=== PATIENT | male | born 1950 | race Caucasian/White ===

== ENCOUNTER 2023-05-15 10:04 | Outpatient (OUT) | payer MEDICARE, OTHER, SELFPAY ==
[2023-05-15 10:23] LABS: Basophils Absolute Auto 0.1 10^3/uL (0.0-0.1); Basophils Percent Auto 1.7 % (0.2-2.0); Eosinophils Absolute Auto 0.1 10^3/uL (0.0-0.7); Eosinophils Percent Auto 2.5 % (0.9-7.0); Hematocrit 46.3 % (42.0-54.0); Hemoglobin 15.5 g/dL (14.0-18.0); Immature Granulocytes Abs Auto 0.02 10^3/uL (0.00-0.03); Immature Granulocytes Pct Auto 0.4 % (0.0-0.5); Lymphocytes Absolute Auto 1.2 10^3/uL (1.2-3.8); Lymphocytes Percent Auto 22.7 % (20.5-60.0); Mean Corpuscular HGB Conc 33.5 g/dL (29.9-35.2); Mean Corpuscular Hemoglobin 31.7 pg (25.9-34.0); Mean Corpuscular Volume 94.7 fL (80.0-94.0); Mean Platelet Volume 9.8 fL (9.5-13.5); Monocytes Absolute Auto 0.6 10^3/uL (0.3-0.8); Monocytes Percent Auto 11.5 % (1.7-12.0); Neutrophils Absolute Auto 3.2 10^3/uL (1.4-6.5); Neutrophils Percent Auto 61.2 % (43.0-75.0); Platelet Count 220 10^3/uL (150-450); Red Blood Count 4.89 10^6/uL (4.70-6.10); Red Cell Distribution Width 12.5 % (11.0-15.0); White Blood Count 5.2 10^3/uL (4.0-11.0)
[2023-05-15 10:38] LABS: Estimated Average Glucose 117 mg/dL; Glycohemoglobin A1C 5.7 % (4.5-6.2)
[2023-05-15 10:58] LABS: Anion Gap 14.2; BUN Creatinine Ratio 26.5; Calcium 9.8 mg/dL (8.5-10.1); Chloride 98 mmol/L (98-107); Chol HDL Ratio 2.3; Cholesterol 213 mg/dL (<=200); Estimated GFR (African America >60 (>=60); Estimated GFR (Non-African Ame >60 (>=60); Glucose 132 mg/dL (74-106); HDL Cholesterol 94 mg/dL (40-60); Potassium 4.2 mmol/L (3.5-5.1); Sodium 137 mmol/L (136-145); Triglycerides 111 mg/dL (<=150); VLDL CHOLESTEROL 22.2 mg/dL
== END 2023-05-15 10:05 | disposition home or self-care (01) ==
LOC: LAB 05-23 14:53
PROVIDERS: PCP Internal Medicine; Visit Provider Internal Medicine
DX: E78.5 Hyperlipidemia, unspecified (principal); I10 Essential (primary) hypertension; R53.83 Other fatigue; R73.02 Impaired glucose tolerance (oral)
CPT/HCPCS: 36415; 80048; 80061; 83036; 85025

== ENCOUNTER 2023-08-25 08:01 | Outpatient (OUT) | payer MEDICARE, OTHER, SELFPAY ==
[2023-08-25 09:33] LABS: Prostate Specific Antigen Dx 5.83 ng/mL (<=4.00)
== END 2023-08-25 08:02 | disposition home or self-care (01) ==
LOC: LAB 08:02
PROVIDERS: PCP Internal Medicine; Visit Provider Urology
DX: R97.20 Elevated prostate specific antigen [PSA] (principal); N40.1 Benign prostatic hyperplasia with lower urinary tract symptoms; N42.32 Atypical small acinar proliferation of prostate; N52.9 Male erectile dysfunction, unspecified; R35.1 Nocturia
CPT/HCPCS: 36415; 84153

== ENCOUNTER 2023-10-31 09:27 | Outpatient (OUT) | payer MEDICARE, OTHER, SELFPAY ==
--- NOTE | 2023-10-31 09:37 | US_ITS ---
[address] [address] Patient Name: MASTER BRUNNER MRN: [id number] date: 1950 Sex: M Assigned Patient Location: Current Patient Location: Accession/Order Number: [id number] Exam Date: 10/31/2023 09:40 Report Date: 11/01/2023 01:05 At the request of: ORLIN LAM Procedure: US carotid duplex BI EXAMINATION: US carotid duplex BI HISTORY: Stenosis Of The Left Carotid Artery I65.22 COMPARISON: Ultrasound carotid artery bilateral 09/15/2022 TECHNIQUE: Duplex Doppler ultrasound analysis of carotid and vertebral arteries. . Bilateral carotid arterial duplex examination was performed using B-mode, color flow and spectral analysis. Carotid stenosis is reported according to validated velocity parameters, similar to NASCET criteria. FINDINGS: RIGHT CAROTID ARTERY: Multiple areas of atherosclerotic plaque involving bulb and proximal ICA. 59% area reduction of carotid bulb. RIGHT VERTEBRAL: Antegrade flow. Subclavian: PSV: 143.8 cm/s EDV: 11.4 cm/s CCA: Prox: PSV: 75.8 cm/s EDV: 12.8 cm/s Mid: PSV: 91.9 cm/s EDV: 12.8 cm/s Distal: PSV: 74.2 cm/s EDV: 11.1 cm/s BULB: PSV: 77.4 cm/s EDV: 11.1 cm/s ICA: Prox: PSV: 90.3 cm/s EDV: 12.8 cm/s Mid: PSV: 106.5 cm/s EDV: 17.6 cm/s Distal: PSV: 98.4 cm/s EDV: 12.8 cm/s ECA: PSV: 121.0 cm/s EDV: 9.5 cm/s VERTEBRAL: PSV: 90.3 cm/s EDV: 0.0 cm/s ICA/CCA ratio: PSV: 1.2 EDV: 1.4 LEFT CAROTID ARTERY: Multiple areas of atherosclerotic plaque involving mid and distal common carotid artery, bulb, and the proximal and mid internal carotid artery. 68% area reduction of the carotid bulb. LEFT VERTEBRAL: Antegrade flow. Subclavian: PSV: 125.3 cm/s EDV: 5.5 cm/s CCA: Prox: PSV: 78.5 cm/s EDV: 13.9 cm/s Mid: PSV: 83.3 cm/s EDV: 13.9 cm/s Distal: PSV: 68.1 cm/s EDV: 12.4 cm/s BULB: PSV: 66.8 cm/s EDV: 12.4 cm/s ICA: Prox: PSV: 116.0 cm/s EDV: 9.8 cm/s Mid: PSV: 114.1 cm/s EDV: 9.0 cm/s Distal: PSV: 128.6 cm/s EDV: 12.3 cm/s ECA: PSV: 166.7 cm/s EDV: 17.0 cm/s VERTEBRAL: PSV: 101.1 cm/s EDV: 9.0 cm/s ICA/CCA ratio: PSV: 1.5 EDV: 0.9 US/US carotid duplex BI IMPRESSION: 1. Right carotid artery 0-49% flow stenosis; moderate atherosclerotic disease. 2. Left carotid artery 0-49% flow stenosis; moderate marked atherosclerotic disease. Spectral Doppler US Thresholds Stenosis (%) PSV (cm/sec) VICA/VCCA 0-49 <150 <2.5 50-69 150-225 2.5-4.0 >70 >225 >4.0 Electronically authenticated by: LON SINGH Date: 11/01/2023 01:05
== END 2023-10-31 09:28 | disposition home or self-care (01) ==
LOC: US 09:27
PROVIDERS: PCP Internal Medicine; Visit Provider Internal Medicine
DX: I65.22 Occlusion and stenosis of left carotid artery (principal)
CPT/HCPCS: 93880

== ENCOUNTER 2023-11-15 09:18 | Outpatient (OUT) | payer MEDICARE, OTHER, SELFPAY ==
--- OUTSIDE RECORDS SUMMARY | 2023-11-15 09:38 | XMS_ITS | CCD ---
Author Name Unknown Address [address] [place] [address] Organization [facility] Care Team Providers Care Commodity Director Name Role Phone ERIK HOLM Primary Care Physician Erik Holm DO Primary Care Provider MD Mann Ribeiro Attending Provider DO Erik Holm Primary Care Provider MIHAI, DR ORDAZ Admitting Unavailable BALL, DR ORDAZ Attending Unavailable BALL, DR ORDAZ Consulting Unavailable MIHAI, DR ORDAZ Primary Care Unavailable LISETTE, DR KARLIE Lord Consulting Unavailable MIHAI, DR ORDAZ Primary Care Unavailable MIHAI, DR ORDAZ Admitting Unavailable MIHAI, DR ORDAZ Attending Unavailable BALL, DR ORDAZ Consulting Unavailable WEST, DR KARLIE Lord Consulting Unavailable SUSANNA, DR PACHECO Attending Unavailable BALL, DR ORDAZ Primary Care Unavailable SUSANNA, DR PACHECO Consulting Unavailable SUSANNA, DR PACHECO Admitting Unavailable RIBEIRO, DR PACHECO Attending Unavailable BALL, DR ORDAZ Primary Care Unavailable RIBEIRO, DR PACHECO Consulting Unavailable RIBEIRO, DR PACHECO Admitting Unavailable TREVINO, MARANDA Consulting Unavailable RIBEIRO, DR PACHECO Admitting Unavailable SUSANNA, DR PACHECO Attending Unavailable MIHAI, DR ORDAZ Primary Care Unavailable RIBEIRO, DR PACHECO Consulting Unavailable CINTIA, RACHEL Consulting Unavailable GEMBUS, KAUSHAL Consulting Unavailable MIHAI, DR ORDAZ Admitting Unavailable BALL, DR ORDAZ Attending Unavailable BALL, DR ORDAZ Consulting Unavailable BALL, DR ORDAZ Primary Care Unavailable Mihai, Erik Unavailable Mann RIBEIRO Attending Unavailable Mann RIBEIRO Attending Unavailable Allergies Allergy Classification Reported Allergen(s) Allergy Type Date of Onset Reaction(s) Facility (1 source) No Known Medication Allergies; Translations: [No Known Medication Allergies] Propensity to adverse reactions (disorder) [facility] Repository Medications Current Medications Medication Drug Class(es) Dates Sig (Normalized) Sig (Original) acetaminophen 325 mg / HYDROcodone bitartrate 7.5 mg oral tablet (1 source) Opioid Agonist Start: 08-05-2022 take 1 tablet by mouth once, then take 1 tablet by mouth every hour [place] 325 mg-7.5 mg oral tablet 1 tab(s), Oral, Once, 1 tab(s), Refill(s) 0, Take 1 hour prior to procedure. Don't drive or operate machinery while taking., [facility]/pharmacy #[id number], 162, cm, 06/06/22 9:08:00 EDT, Height/Length Dosing, 59.5, kg, 06/06/22 9:08:00 EDT, Weight Dosing Start Date: 08/05/22 Status: Ordered aspirin 81 mg oral tablet (11 sources) Platelet Aggregation Inhibitor, Nonsteroidal Anti-inflammatory Drug Start: 08-26-2019 take 1 mg by mouth once daily aspirin 81 mg oral tablet mg tab(s), Oral, Daily, Refills(s) 0 Start Date: 08/26/19 Status: Ordered take 1 tablet by bolivar th every twenty-four hours Aspirin 81 MG 1 tablet Orally Once a day Active Comment on above: Take 81 mg by mouth once daily. atorvastatin 40 mg oral tablet (11 sources) HMG-CoA Reductase Inhibitor Start: 05-13-2021 atorvastatin 40 mg T ab Refills(s) 0 Start Date: 06/04/21 Status: Ordered Comment on above: Take 40 mg by mouth daily at bedtime. benoxinate hydrochloride 4 mg/ml / fluorescein sodium 2.5 mg/ml ophthalmic solution (1 source) Diagnostic Dye Start: 06-16-2022 End: 06-17-2022 fluorescein-benoxinate 0.25-0.4 % 1 Drop (FLURESS) hydroCHLOROthiazide 25 mg oral tablet (11 sources) Thiazide Diuretic Start: 08-26-2019 take 1 mg by mouth once daily hydrochlorothiazide 25 mg Tab mg tab(s), Oral, Daily, Refills(s) 0 Start Date: 08/26/19 Status: Ordered Comment on above: Take 25 mg by mouth once daily. phenylephrine hydrochloride 25 mg/ml ophthalmic solution (1 source) alpha-1 Adrenergic Agonist Start: 06-16-2022 End: 06-17-2022 PHENYLephrine 2.5 % 1 Drop (AK-DILATE, KALIE-SYNEPHRINE) pravastatin sodium 80 mg oral tablet (5 sources) HMG-CoA Reductase Inhibitor Start: 08-26-2019 take 1 mg by mouth once daily pravastatin 80 mg Tab mg tab(s), Oral, Daily, Refills(s) 0 Start Date: 08/26/19 Status: Ordered Comment on above: Take by mouth. tropicamide 10 mg/ml ophthalmic solution (1 source) Anticholinergic Start: 06-16-2022 End: 06-17-2022 tropicamide 1 % 1 Drop (MYDRIACYL) Completed/Discontinued Medications Medication Drug Class(es) Dates Sig (Normalized) Sig (Original) amLODIPine 5 mg / benazepril hydrochloride 20 mg oral capsule (11 sources) Dihydropyridine Calcium Channel Ramon, Angiotensin Converting Enzyme Inhibitor Start: 08-26-2019 amLODIPine-benaz epril (LOTREL) 5-20 mg per capsule Take by mouth. 0 08/26/2019 Active Start: 08-26-2019 take 1 capsule by [facility] once daily amLODIPine-benazepril 5 mg-20 mg Cap cap(s), Oral, Daily, Refill(s) 0 Start Date: 08/26/19 Status: Ordered Comment on above: Take by mouth. ketorolac tromethamine 5 mg/ml ophthalmic solution (2 sources) Nonsteroidal Anti-inflammatory Drug, Cyclooxygenase Inhibitor Start: 07-13-2021 End: 06-16-2022 keTORolac (ACULAR) 0.5 % ophthalmic solution USE DIRECTED BY PHYSICIAN, IN OPERATIVE EYE, BEGINNING ONE DAY AFTER SURGERY 5 mL 0 07/27/2021 06/16/2022 Discontinued (Course of therapy completed) Comment on above: USE DIRECTED BY Francia SUTTON, IN OPERATIVE EYE, BEGINNING ONE DAY AFTER SURGERY prednisoLONE acetate 10 mg/ml ophthalmic suspension (2 sources) Corticosteroid Start: 07-13-2021 End: 06-16-2022 prednisoLONE acetate (PRED FORTE, ECONOPRED PLUS) 1 % ophthalmic suspension USE DIRECTED BY PHYSICIAN, IN OPERATIVE EYE, BEGINNING ONE DAY AFTER SURGERY 5 mL 0 07/27/2021 06/16/2022 Discontinued (Course of therapy completed) Comment on above: USE DIRECTED BY Francia SUTTON, IN OPERATIVE EYE, BEGINNING ONE DAY AFTER SURGERY tadalafil 20 mg oral tablet (11 sources) Phosphodiesterase 5 Inhibitor Start: 09-11-2023 take 1 tablet by mouth every twenty-four hours tadalafil 20 mg Tab 20 mg = 1 tab(s), Oral, As Directed, Take 1 tab 1 hr prior to sexual activity as needed. Don't exceed 1 tab in a 24 hr period., # 30 tab(s), Refills(s) 11, Pharmacy: [facility] [id number], 162, cm, 09/11/23 8:42:00 EDT, Height/Length Dosing, 61.2, kg, 09/11/23 8:42:00 EDT, Weight Dosing Start Date: 09/11/23 Status: Ordered Start: 08-12-2022 take 1 tablet by bolivar th every twenty-four hours tadalafil 20 mg Tab 20 mg = 1 tab(s), Oral, As Directed, Take 1 tab 1 hr prior to sexual activity as needed. Don't exceed 1 tab in a 24 hr period., # 30 tab(s), Refills(s) 3, Pharmacy: [facility] [id number], 162, cm, 06/06/22 9:08:00 EDT, Height/Length Dosing, 59.5,... Start Date: 08/12/22 Status: Ordered Start: 03-09-2020 tadalafil 20 m g Tab 20 mg = 1 tab(s), Oral, As Directed, Take 1 tab 30min. prior to sexual activity, # 30 tab(s), Refills(s) 3, Pharmacy: [facility] [id number], 162, cm, 06/04/21 8:16:00 EDT, Height/Length Dosing, 59.5, kg, 06/04/21 8:16:00 EDT, Weight Dosing Start Date: 04/08/22 Status: Ordered take 1 tablet by bolivar th every twenty-four hours Cialis 20 MG 1 tablet as needed Orally Once a day Active Comment on above: Take 20 mg by mouth. Problems Problem Classification Problem Date Documented Date Episodic/Chronic Asthma (1 source) Unspecified asthma, uncomplicated; Translations: [UNSPECIFIED ASTHMA UNCOMPLICATED] Onset: 08-31-2022 Chronic Cataract (2 sources) After-cataract of bilateral eyes; Translations: [Other secondary cataract, bilateral] Chronic Diabetes mellitus without complication (18 sources) Impaired fasting glycemia; Translations: [Impaired fasting glucose] Onset: 05-16-2022 08-26-2019 Episodic Disorders of lipid metabolism (20 sources) Hyperlipidemia; Translations: [Hyperlipidemia, unspecified] Onset: 07-08-2021 08-26-2019 Chronic Essential hypertension (19 sources) Hypertensive disorder; Translations: [Essential (primary) hypertension] Onset: 07-08-2021 08-26-2019 Chronic Genitourinary symptoms and ill-defined conditions (15 sources) Nocturia; Translations: [Nocturia] Onset: 06-06-2022 Episodic Glaucoma (12 sources) Glaucoma; Translations: [Preglaucoma, unspecified, bilateral] Onset: 08-31-2022 08-26-2019 Chronic Hyperplasia of prostate (20 sources) Benign prostatic hypertrophy with outflow obstruction; Translations: [Benign prostatic hyperplasia with lower urinary tract symptoms] Onset: 05-13-2022 Chronic Neoplasms of unspecified nature or uncertain behavior (4 sources) Neoplasm of uncertain behavior of prostate 10-11-2019 Episodic Occlusion or stenosis of precerebral arteries (18 sources) Occlusion and stenosis of left carotid artery; Translations: [Left carotid artery stenosis] Onset: 09-15-2022 Chronic Other aftercare (1 source) medical terminologist (current) use of anticoagulants; Translations: [ASSISTED CURRNT USE ANTICOAGULANTS] Onset: 08-31-2022 Episodic Other aftercare (2 sources) Other medical terminologist (current) drug therapy; Translations: [OTH ASSISTANT PROFESSOR OF BIOCHEMISTRY CURRENT DRUG THERAPY] Onset: 05-16-2022 Episodic Other circulatory disease (4 sources) Cardiovascular symptoms; Translations: [Other specified symptoms and signs involving the circulatory and respiratory systems] Episodic Other circulatory disease (2 sources) Other specified symptoms and signs involving the circulatory and respiratory systems; Translations: [Bilateral carotid bruits] Episodic Other diseases of kidney and ureters (2 sources) Urinary tract obstruction; Translations: [Other obstructive and reflux uropathy] Onset: 06-06-2022 Episodic Other male genital disorders (4 sources) Male erectile dysfunction, unspecified; Translations: [Erectile dysfunction] Onset: 06-06-2022 Chronic Other male genital disorders (4 sources) Impotence 10-11-2019 Chronic Other male genital disorders (3 sources) Dysplasia of prostate; Translations: [Atypical small acinar proliferation of prostate] Onset: 06-06-2022 Episodic Other male genital disorders (1 source) Disorder of prostate, unspecified; Translations: [DISORDER OF PROSTATE UNSPECIFIED] Onset: 08-31-2022 Episodic Other male genital disorders (1 source) Atypical small acinar proliferation of prostate; Translations: [ATYPICAL SMALL ACINAR PROLIF PROS] Onset: 08-31-2022 Episodic Other male genital disorders (1 source) Other specified disorders of prostate; Translations: [OTHER SPECIFIED DISORDERS PROSTATE] Onset: 08-24-2022 Episodic Other screening for suspected conditions (not mental disorders or infectious disease) (19 sources) Raised prostate specific antigen; Translations: [Elevated prostate specific antigen [PSA]] Onset: 06-06-2022 Episodic Residual codes; unclassified (1 source) History of refractive surgery; Translations: [Other specified postprocedural states] Episodic Screening and history of mental health and substance abuse codes (1 source) Personal history of nicotine dependence; Translations: [PERSONAL HISTORY OF NICOTINE DEPEND] Onset: 08-31-2022 Episodic Unclassified (4 sources) Drug therapy finding 10-11-2019 Unclassified (1 source) CONTACT W/AND (SUSP) EXPOS COVID-19; Translations: [CONTACT W/AND (SUSP) EXPOS COVID-19] Onset: 08-24-2022 Results Test Name Value Interpretation Reference Range Facil ity Ambulatory Visit Summaryon 1 Ambulatory Visit Summary BALJINDER BRUNNER Martha :1950 Visit Date:09/11/2023 Ambulatory Visit Instructions Your Diagnosis Elevated PSA BPH with urinary obstruction Atypical small acinar proliferation of prostate Impotence Nocturia Tests Performed Urnls Dip Stick Auto w/o Microscopy POC [id number] Your Care Team Attending Physician - Mann RIBEIRO MD Primary Care Physician - ERIK HOLM DO This Is Your Medications List tadalafil (tadalafil 20 mg Tab) Contact prescribing physician if questions or concerns amlodipine-benazepril (amLODIPine-benazepril 5 mg-20 mg Cap) aspirin (aspirin 81 mg oral tablet) atorvastatin (atorvastatin 40 mg Tab) hydrochlorothiazide (hydrochlorothiazide 25 mg Tab) pravastatin (pravastatin 80 mg Tab) Procedures Performed MRI-US fusion guided transperineal biopsy of prostate (08/25/2022), Transrectal biopsy of prostate using ultrasound (US) guidance (09/24/2019), Colonoscopy. Discharge Vitals Heart Rate (Peripheral) 66 Respiratory Rate 16 Blood Pressure 136/84 Height 162 cm Height 64 in Weight 61.2 kg Weight 134.64 lb BMI 23.32 What to do next Scheduled Follow-Up Appointments Monday 8:45 AM EDT With: Mann RIBEIRO MD Where: [facility] Patient Educationon 09-11-20 23 Patient Education Urology Benign Prostatic Hyperplasia Benign prostatic hyperplasia (BPH) is an enlarged prostate gland that is caused by the normal aging process. The prostate may get bigger as a man gets older. The condition is not caused by cancer. The prostate is a walnut-sized gland that is involved in the production of semen. It is located in front of the rectum and below the bladder. The bladder stores urine. The urethra carries stored urine out of the body. An enlarged prostate can press on the urethra. This can make it harder to pass urine. The buildup of urine in the bladder can cause infection. Back pressure and infection may progress to bladder damage and kidney (renal) failure. What are the causes? This condition is part of the normal aging process. However, not all men develop problems from this condition. If the prostate enlarges away from the urethra, urine flow will not be blocked. If it enlarges toward the urethra and compresses it, there will be problems passing urine. What increases the risk? This condition is more likely to develop in men older than 50 years. What are the signs or symptoms? Symptoms of this condition include: ? Getting up often during the night to urinate. ? Needing to urinate frequently during the day. ? Difficulty starting urine flow. ? Decrease in size and strength of your urine stream. ? Leaking (dribbling) after urinating. ? Inability to pass urine. This needs immediate treatment. ? Inability to completely empty your bladder. ? Pain when you pass urine. This is more common if there is also an infection. ? Urinary tract infection (UTI). How is this diagnosed? This condition is diagnosed based on your medical history, a physical exam, and your symptoms. Tests will also be done, such as: ? A post-void bladder scan. This measures any amount of urine that may remain in your bladder after you finish urinating. ? A digital rectal exam. In a rectal exam, your health care provider checks your prostate by putting a lubricated, gloved finger into your rectum to feel the back of your prostate gland. This exam detects the size of your gland and any abnormal lumps or growths. ? An exam of your urine (urinalysis). ? A prostate specific antigen (PSA) screening. This is a blood test used to screen for prostate cancer. ? An ultrasound. This test uses sound waves to electronically produce a picture of your prostate gland. Your health care provider may refer you to a specialist in kidney and prostate diseases (urologist). How is this treated? Once symptoms begin, your health care provider will monitor your condition (active surveillance or watchful waiting). Treatment for this condition will depend on the severity of your condition. Treatment may include: ? Observation and yearly exams. This may be the only treatment needed if your condition and symptoms are mild. ? Medicines to relieve your symptoms, including: ? Medicines to shrink the prostate. ? Medicines to relax the muscle of the prostate. ? Surgery in severe cases. Surgery may include: ? Prostatectomy. In this procedure, the prostate tissue is removed completely through an open incision or with a laparoscope or robotics. ? Transurethral resection of the prostate (TURP). In this procedure, a tool is inserted through the opening at the tip of the penis (urethra). It is used to cut away tissue of the inner core of the prostate. The pieces are removed through the same opening of the penis. This removes the blockage. ? Transurethral incision (TUIP). In this procedure, small cuts are made in the prostate. This lessens the prostate's pressure on the urethra. ? Transurethral microwave thermotherapy (TUMT). This procedure uses microwaves to create heat. The heat destroys and removes a small amount of prostate tissue. ? Transurethral needle ablation (TUNA). This procedure uses radio frequencies to destroy and remove a small amount of prostate tissue. ? Interstitial laser coagulation (ILC). This procedure uses a laser to destroy and remove a small amount of prostate tissue. ? Transurethral electrovaporization (TUVP). This procedure uses electrodes to destroy and remove a small amount of prostate tissue. ? Prostatic urethral lift. This procedure inserts an implant to push the lobes of the prostate away from the urethra. Follow these instructions at home: ? Take oznd-ymv-whldvws and prescription medicines only as told by your health care provider. ? Monitor your symptoms for any changes. Contact your health care provider with any changes. ? Avoid drinking large amounts of liquid before going to bed or out in public. ? Avoid or reduce how much caffeine or alcohol you drink. ? Give yourself time when you urinate. ? Keep all follow-up visits. This is important. Contact a health care provider if: ? You have unexplained back pain. ? Your symptoms do not get better with treatment. ? You develop side effects from the medicine (more content not included)... [facility] Urology Office/Clinic Noteon 09-11-2023 Urology Office/Clinic Note Chief Complaint elevated PSA HPI Staff 72 yo male here for 1 yr f/u with PSA. Previous Dx: elevated PSA, BPH with obstruction, atypical small acinar proliferation of prostate, impotence, nocturia. S/p MRI fusion bx 08/25/22 and TRUS/bx 09/24/19. Previous PSA 05/13/22 was 4.99. Current PSA 08/25/23 is 5.83. Taking Tadalafil 20mg PRN. Dysuria: no Incomplete bladder emptying: no Hematuria: no Frequency: no Urgency: no Nocturia: 1-2x Stream: no straining or intermittency Leaking: no Post void dripping: no Wearing pads/ Depends: no Urge incontinence: no Stress incontinence: no Incontinence without Sensory Awareness: no Abdominal pain: no Flank pain: no Sexual complaints: no History of Present Illness Tests reviewed: reviewed UA and PSA. I have reviewed the previous health record information and history for this patient from . I have reviewed and verified the staff HPI to be accurate for this encounter. There have been no associated fever, chills, flank pain, or blood in the urine. Denies any urinary infections since last encounter. Review of Systems PHQ Score Initial Depression Screen Score: 0 ROS - Provider Constitutional: denies weight loss, denies hot flashes. Eyes: denies eye problems. Gastrointestinal: denies nausea, denies vomiting. Cardiovascular: denies chest pain or angina. Integumentary: no dryness Musculoskeletal: denies musculoskeletal symptoms. ENMT: denies otolaryngeal symptoms. Respiratory: no shortness of breath. Heme/Lymph: denies easy bleeding tendency, denies easy bruising tendency. Psychiatric: no confusion, no anxiety. Genitourinary: See HPI. Physical Exam Vitals & Measurements HR: 66(Peripheral) RR: 16 BP: 136/84 HT: 64 in HT: 162 cm WT: 61.2 kg WT: 134.64 lb BMI: 23.32 General Appearance: alert, no distress, well nourished, well developed male. Genitourinary: normal scrotum, normal testes, normal urethra, normal epididymis, normal vas deferens/spermatic cord. Flank Pain: none. Bladder: nonpalpable. Prostate: normal prostate, estimated weight 30 gms, no hard nodule observed. Assessment/Plan 1. Elevated PSA (R97.20: Elevated prostate specific antigen [PSA]) Pt has undergone 2 TRUS/Bx's in the past. Bx done 08/2019 showed one core of AMELIA, repeat Bx done 04/2020 all cores were negative. Recent TRUS done 08/25/2022 was negative. PSA 05/12/21 - 6.17 05/13/22 - 4.99 08/25/23 - 5.83 Discussed PSA levels with pt, increased slightly from previous, not the highest it's been. Will continue to monitor. Follow up in 1 yr w/PSA. All questions/concerns were discussed. Pt to call the office if he encounters any issues prior. Pt acknowledges understanding. -Will order PSA. 2. BPH with urinary obstruction (N40.1: Benign prostatic hyperplasia with lower urinary tract symptoms) Good stream. UA done today was negative. KAMRYN: 30 gms, no nodules Patient is not currently taking any prostate medications other than cialis. 3. 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 Recent TRUS done 08/25/2022 shows prostate lesion. Will continue to monitor. 4. Impotence (N52.9: Male erectile dysfunction, unspecified) Pt to continue Tadalafil 20mg PRN therapy. Patient states that he takes this about QD, 6 days/wk. Advised pt to try taking this med QOD do to it having effect on BPH and ED. Pt states that he can do this. -Start Tadalafil 20mg QOD. Refills sent to Pharm on file. 5. Nocturia (R35.1: Nocturia) Mild, 0-2 time per night depending on fluid intake. Follow-up With When Contact Information Mann RIBEIRO MD, URXi In 1 year [facility] [address], [place] [id number]- Additional Instructions: w/PSA Patient Education Benign Prostatic Hyperplasia I, Sandra Ragsdale , personally scribed for Dr. Ribeiro on 09/11/2023 09:18:36. . Documentation recorded by the scribe, Sandra Ragsdale, accurately reflects the services(s) I performed and decisions made by me. 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 Medications amLODIPine-benazepril 5 mg-20 mg Cap, Oral, Daily aspirin 81 mg oral tablet, Oral, Daily atorvastatin 40 mg Tab hydrochlorothiazide 25 mg Tab, Oral, Daily pravastatin 80 mg Tab, Oral, Daily tadalafil 20 mg Tab, 20 mg= 1 tab(s), Oral, As Directed, 11 refills Allergies No Known Medication Allergies Social History Tobacco Former smoker (more content not included)... [facility] Comment on above: Result Comment: Elec tronically Signed By: Mann RIBEIRO MD\.br\Date and Time Signed: 09/11/23 09:20 EDT\.br\Electronically Co-Signed By: Sandra Ragsdale\.br\Date and Time Co-Signed: 09/11/23 09:18 EDT Lab Report[facility] 08-25-2023 Lab Reports [id number] D:127 [facility] US CAROTID ART BILon 022 US CAROTID ART JOSE EXAMINATION: US KOVACS TID ART JOSE HISTORY: Left carotid artery occlusion COMPARISON: No relevant comparison available. TECHNIQUE: Duplex Doppler ultrasound analysis of carotid and vertebral arteries. . Bilateral carotid arterial duplex examination was performed using B-mode, color flow and spectral analysis. Carotid stenosis is reported according to validated velocity parameters, similar to NASCET criteria. FINDINGS: RIGHT CAROTID ARTERY Moderate atherosclerotic plaque Subclavian: PSV: 191.9 cm/s cm/s EDV: 0.0 cm/s cm/s CCA: Prox: PSV: 90.5 cm/s cm/s EDV: 15.6 cm/s cm/s Mid: PSV: 90.5 cm/s cm/s EDV: 13.6 cm/s cm/s Distal: PSV: 96.4 cm/s cm/s EDV: 19.5 cm/s cm/s BULB: PSV: 90.5 cm/s cm/s EDV: 11.6 cm/s cm/s ICA: Prox: PSV: 90.5 cm/s cm/s EDV: 13.6 cm/s cm/s Mid: PSV: 102.3 cm/s cm/s EDV: 17.5 cm/s cm/s Distal: PSV: 116.1 cm/s cm/s EDV: 17.5 cm/s cm/s ECA: PSV: 129.8 cm/s cm/s EDV: 7.7 cm/s cm/s VERTEBRAL: PSV: 120.5 cm/s cm/s EDV: 13.9 cm/s cm/s ICA/CCA ratio: PSV: 1.2 EDV: 0.9 LEFT CAROTID ARTERY Moderate atherosclerotic plaque Subclavian: PSV: 227.3 cm/s cm/s EDV: 0.0 cm/s CCA: Prox: PSV: 104.7 cm/s cm/s EDV: 15.6 cm/s Mid: PSV: 111.6 cm/s cm/s EDV: 17.0 cm/s Distal: PSV: 97.8 cm/s cm/s EDV: 15.0 cm/s BULB: PSV: 123.4 cm/s cm/s EDV: 20.9 cm/s ICA: Prox: PSV: 152.9 cm/s cm/s EDV: 17.0 cm/s Mid: PSV: 133.2 cm/s cm/s EDV: 20.9 cm/s Distal: PSV: 125.3 cm/s cm/s EDV: 24.8 cm/s ECA: PSV: 143.0 cm/s cm/s EDV: 11.0 cm/s VERTEBRAL: PSV: 77.1 cm/s cm/s EDV: 11.1 cm/s ICA/CCA ratio: PSV: 1.6 EDV: 1.1 IMPRESSION: 0-49% flow stenosis bilateral internal carotid arteries Spectral Doppler US Thresholds (Reference: Denis EG, et al. Radiology 2000; 214:247-252) Stenosis (%) PSV (cm/sec) VICA/VCCA 0-49 <150 <2.5 50-69 150-225 2.5-4.0 >70 >225 >4.0 Electronically authenticated by: KARLIE KNOX Date: 2022-09-15 17:15 Normal [facility] CBC AUTO DIFFon 08-22-2022 BASO # 0.1 103/ul Normal 0.0-0.1 [facility] Comment on above: Performed By: #### C BC #### [facility] [address] [place] [address] Dr. Phil Acuña Basophils/100 WBC (Bld) 0.9 % Normal 0.2-2.0 [facility] Comment on above: Performed By: #### C BC #### [facility] [address] [place] [address] Dr. Phil Acuña EO # 0.0 103/ul Normal 0.0-0.7 [facility] Comment on above: Performed By: #### C BC #### [facility] [address] [place] [address] Dr. Phil Acuña Eosinophils/100 WBC (Bld) 0.5 % Critically low 0.9-7. 0 [facility] Comment on above: Performed By: #### C BC #### [facility] [address] [place] [address] Dr. Phil Acuña Erythrocyte distribution wid th (RBC) [Ratio] 12.6 % Normal 11.0-15.0 [facility] Comment on above: Performed By: #### C BC #### [facility] [address] [place] [address] Dr. Phil Acuña Hematocrit (Bld) [Volume fraction] 42.9 % Normal 4 2.0-54.0 [facility] Comment on above: Performed By: #### C BC #### [facility] [address] [place] [address] Dr. Phil Acuña Hemoglobin (Bld) [Mass/Vol] 14.5 g/dL Normal 14.0-18. 0 [facility] Comment on above: Performed By: #### C BC #### [facility] [address] [address] [address] Phil Acuña IG # 0.04 10e3/ul Critically high 0.00-0.03 [facility] Comment on above: Performed By: #### C BC #### [facility] [address] [place] [address] Dr. Phil Acuña IG % 0.5 % Normal 0.0-0.5 [facility] Comment on above: Performed By: #### C BC #### [facility] [address] [place] [address] Dr. Phil Acuña LYMPH # 1.1 103/ul Critically low 1.2-3.8 [facility] Comment on above: Performed By: #### C BC #### [facility] [address] [place] [address] Dr. Phil Acuña Lymphocytes/100 WBC (Bld) 14.2 % Critically low 20.5-6 0.0 [facility] Comment on above: Performed By: #### C BC #### [facility] [address] [place] [address] Dr. Phil Acuña MANUAL DIFF REQ NO Normal [facility] Comment on above: Performed By: #### C BC #### [facility] [address] [place] [address] Dr. Phil Acuña MCH (RBC) [Entitic mass] 31.6 pg Normal 25.9-34.0 [facility] Comment on above: Performed By: #### C BC #### [facility] [address] [place] [address] Dr. Phil Acuña MCHC (RBC) [Mass/Vol] 33.8 g/dL Normal 29.9-35.2 [facility] Comment on above: Performed By: #### C BC #### [facility] [address] [place] [address] Dr. Phil Acuña MCV (RBC) [Entitic vol] 93.5 fL Normal 80.0-94.0 [facility] Comment on above: Performed By: #### C BC #### [facility] [address] [place] [address] Dr. Phil Acuña MONO # 0.7 103/ul Normal 0.3-0.8 [facility] Comment on above: Performed By: #### C BC #### [facility] [address] [place] [address] Dr. Phil Acuña Monocytes/100 WBC (Bld) 10.0 % Normal 1.7-12.0 [facility] Comment on above: Performed By: #### C BC #### [facility] [address] [place] [address] Dr. Phil Acuña NEUT # 5.4 103/ul Normal 1.4-6.5 [facility] Comment on above: Performed By: #### C BC #### [facility] [address] [place] [address] Dr. Phil Acuña Neutrophils/100 WBC (Bld) 73.9 % Normal 43.0-75.0 [facility] Comment on above: Performed By: #### C BC #### [facility] [address] [place] [address] Dr. Phil Acuña Platelet mean volume (Bld) [ Entitic vol] 10.1 fL Normal 9.5-13.5 [facility] Comment on above: Performed By: #### C BC #### [facility] [address] [place] [address] Dr. Phil Acuña PLT 220 103/ul Normal 150-450 [facility] Comment on above: Performed By: #### C BC #### [facility] [address] [place] [address] Dr. Phil Acuña RBC 4.59 106/ul Critically low 4.70-6.10 [facility] Comment on above: Performed By: #### C BC #### [facility] [address] [place] [address] [address] [address] Phil Acuña WBC 7.4 103/ul Normal 4.0-11.0 [facility] Comment on above: Performed By: #### C BC #### [facility] [address] [place], [place] [address] Dr. Phil Acuña Covid-19 PCR ([facility])on 07-29 SARS-CoV-2 (COVID-19) RNA JOE+probe Ql (Unsp spec) Not detected Normal NOT DETECTED [facility] Comment on above: Result Comment: This test is not yet approved or cleared by the [place] FDA. When there are no FDA-approved or cleared tests available, and other criteria are met, FDA can make tests available under an emergency access mechanism called an Emergency Use Authorization (EUA). The EUA for this test is supported by the [place] of Health and Human Service's (HHS's) declaration that circumstances exist to justify the emergency use of in vitro diagnostics for the detection and/or diagnosis of the virus that causes COVID-19. This EUA will remain in effect (meaning this test can be used) for the duration of the COVID-19 declaration justifying emergency of IVDs, unless it is terminated or revoked by FDA (after which the test may no longer be used). When diagnostic testing is negative, the possibility of a false negative should be considered in the context of a patient's recent exposures and the presence of clinical signs and symptoms consistent with SARS-CoV-2. Performed By: #### C VDTBH #### [facility] [address] [place], [place] [address] Dr. Phil Acuña PROF CHEM 8 (BAS METB)on Anion gap [Moles/Vol] 11.0 mmol/L Normal [facility] Comment on above: Performed By: #### B MP #### [facility] [address] [place], [place] [address] Dr. Phil Acuña Calcium [Mass/Vol] 9.2 mg/dL Normal 8.5-10.1 [facility] Comment on above: Performed By: #### B MP #### [facility] [address] [address] [address] Phil Acuña Chloride [Moles/Vol] 102 mmol/L Normal 98-107 [facility] Comment on above: Performed By: #### B MP #### [facility] [address] [address] [address] Phil Acuña CO2 [Moles/Vol] 30.1 mmol/L Normal 21.0-32.0 [facility] Comment on above: Performed By: #### B MP #### [facility] [address] [address] [address] Phil Acuña Creatinine [Mass/Vol] 1.01 mg/dL Normal 0.70-1.30 [facility] Comment on above: Performed By: #### B MP #### [facility] [address] [place] [address] Dr. Phil Acuña EGFR-AF BELARUSIAN >60 Normal >=60 [facility] Comment on above: Performed By: #### B MP #### [facility] [address] [address] [address] Phil Acuña EGFR-NON AF BELARUSIAN >60 Normal >=60 [facility] Comment on above: Performed By: #### B MP #### [facility] [address] [place] [address] Dr. Phil Acuña Glucose [Mass/Vol] 121 mg/dL Critically high 74-106 [facility] Comment on above: Performed By: #### B MP #### [facility] [address] [address] [address] Phil Acuña Potassium [Moles/Vol] 4.1 mmol/L Normal 3.5-5.1 [facility] Comment on above: Performed By: #### B MP #### [facility] [address] [address] [address] Phil Acuña Sodium [Moles/Vol] 139 mmol/L Normal 136-145 [facility] Comment on above: Performed By: #### B MP #### [facility] [address] [place] [address] Dr. Phil Acuña Urea nitrogen [Mass/Vol] 20.0 mg/dL Critically high 7.0-18 .0 [facility] Comment on above: Performed By: #### B MP #### [facility] [address] [place] [address] Dr. Phil Acuña Urea nitrogen/Creatinine [Mass ratio] 19.8 mg/mg Normal [facility] Comment on above: Performed By: #### B MP #### [facility] [address] [place] [address] Dr. Phil Acuña PROTIMEon 08-22-2022 INR Coag (PPP) [Relative time] 0.99 {INR} Normal [facility] Comment on above: Performed By: #### P TT, PT #### [facility] [address] [place] [address] Dr. Phil Acuña INR GUIDELINES SEE BELOW Normal [facility] Comment on above: Result Comment: GERRY RED INR: 2.0 - 3.0 CONDITIONS NOT LISTED BELOW 2.5 - 3.5 FOR PROSTHETIC HEART VALVE REPLACEMENT 2.5 - 3.5 RECURRENT THROMBOSIS Performed By: #### P TT, PT #### [facility] [address] [place] [address] Dr. Phil Acuña PT Coag (PPP) [Time] 10.7 s Normal 9.0-11.6 [facility] Comment on above: Performed By: #### P TT, PT #### [facility] [address] [place] [address] Dr. Phil Acuña PTTon 08-22-2022 aPTT Coag (Bld) [Time] 26.8 s Normal 22.3-36.2 [facility] Comment on above: Performed By: #### P TT, PT #### [facility] [address] [place] [address] Dr. Phil Acuña Creatinine (Bld) [Mass/Vol]O rdered By: Mann Ribeiro on 07-18-2022 Creatinine [Mass/Vol] 1.0 mg/dL 0.6-1.3 [facility] Comment on above: ER/ESD physician is notified/shown all ISTAT results. Critical values may be confirmed by laboratory testing if deemed necessary by ER attending doctor. ISTAT XRay CREon 07-18-2022 Creatinine [Mass/Vol] 1.0 mg/dL Normal 0.6-1.3 [facility] Comment on above: Result Comment: ER/E SD physician is notified/shown all ISTAT results. Critical values may be confirmed by laboratory testing if deemed necessary by ER attending doctor. Performed By: #### I SCRE #### [address] Point of Care testing , ISTAT GFR ( > 60 Normal [facility] Comment on above: Result Comment: GFR estimated reference range: According to KDOQI guidelines, <60 ml/min/1.73m2 is sufficient to diagnose a patient with chronic kidney disease. PERFORMED BY: [place] [address] PATHOLOGIST SAMPLE [employer]ITCHER FRANC SALINAS M.D. Performed By: #### I SCRE #### [address] Point of Care testing , ISTAT GFR (Non- Am > 60 Normal [facility] Comment on above: Performed By: #### I SCRE #### [address] Point of Care testing , MR prostate wo/w conon 07-18 MR prostate wo/w con [facility] [place] [address] [place] [address] MRI Report Signed Patient: Baljinder Brunner MR#: [id number] 5 : 1950 Acct:[id number] Age/Sex: 71 / M ADM Date: 07/18/22 Loc: MR Room: Type: [facility] Attending Dr: Mann Ribeiro MD Copies to: Mann Ribeiro MD Ordering Provider: Mann Ribeiro MD Date of Service: 07/18/22 MR/MR prostate wo/w con: R97.20 EXAMINATION: MR prostate wo/w con HISTORY: Elevated PSA. COMPARISON: NONE TECHNIQUE: Multiparametric imaging of the prostate gland was performed with IV contrast. FINDINGS: Prostate Dimensions: 4.8 x 3.8 x 4.7 cm Prostate Volume: 45 mL Peripheral Zone: Heterogenous inT2 signal suggestive of prior prostatitis. A focal area of T2 hypointensity is identified involving the posterior aspect of the likely right peripheral zone at the level of the base measuring 8 x 7 mm with associated restricted diffusion and low ADC value. Please see series 4 image 20, series 650 image 18 and series 600, image 18. It is difficult to say with certainty whether this lesion is within the peripheral zone or possibly the transitional zone given its location. Central/Transitional Zone: BPH changes. Seminal Vesicles: Unremarkable Neurovascular bundles: Unremarkable. Lymphadenopathy: No evidence of lymphadenopathy. Bladder: No focal lesion. Bowel: The visualized bowel is without acute abnormality. Peritoneal Cavity: No free fluid. Bones: No suspicious bony lesion. MR/MR prostate wo/w con IMPRESSION: A focal area of T2 hypointensity is identified involving the posterior aspect of the likely right peripheral zone at the level of the base measuring 8 x 7 mm with associated restricted diffusion and low ADC value. Please see series 4 image 20, series 650 image 18 and series 600, image 18. It is difficult to say with certainty whether this lesion is within the peripheral zone or possibly the transitional zone given its location. PI-RADS 4. Targeting on biopsy is recommended. Impression dictated by: Ryan Jimenez Jr., D.O.07/18/2022 4:10 PM Dictation Location: [place] [address] Transcribed By: [facility] 07/18/22 1610 Dictated By: Ryan Jimenez Jr, DO 07/18/22 1602 Signed By: 07/18/22 1610 Normal [facility] No Panel InformationOrdered By: Mann Ribeiro on 07-18-2022 POC Estimated GFR > 60 [facility] Comment on above: GFR estimated refere nce range: According to KDOQI guidelines, <60 ml/min/1.73m2 is sufficient to diagnose a patient with chronic kidney disease. POC Estimated GFR Non- Amer > 60 [facility] US CAROTID ART BILon 022 US CAROTID ART JOSE EXAMINATION: US KOVACS TID ART JOSE HISTORY: Left carotid artery stenosis COMPARISON: No relevant comparison available. TECHNIQUE: Duplex Doppler ultrasound analysis of carotid and vertebral arteries. . Bilateral carotid arterial duplex examination was performed using B-mode, color flow and spectral analysis. Carotid stenosis is reported according to validated velocity parameters, similar to NASCET criteria. FINDINGS: RIGHT CAROTID ARTERY Mild atherosclerotic plaque Subclavian: PSV: 205.6 cm/s cm/s EDV: 0.0 cm/s cm/s CCA: Prox: PSV: 105.9 cm/s cm/s EDV: 15.3 cm/s cm/s Mid: PSV: 105.9 cm/s cm/s EDV: 20.0 cm/s cm/s Distal: PSV: 98.9 cm/s cm/s EDV: 20.0 cm/s cm/s BULB: PSV: 85.0 cm/s cm/s EDV: 13.0 cm/s cm/s ICA: Prox: PSV: 98.9 cm/s cm/s EDV: 17.6 cm/s cm/s Mid: PSV: 103.5 cm/s cm/s EDV: 15.3 cm/s cm/s Distal: PSV: 102.7 cm/s cm/s EDV: 22.0 cm/s cm/s ECA: PSV: 154.7 cm/s cm/s EDV: 10.7 cm/s cm/s VERTEBRAL: PSV: 83.6 cm/s cm/s EDV: 9.8 cm/s cm/s ICA/CCA ratio: PSV: 1.0 EDV: 1.0 LEFT CAROTID ARTERY Moderate atherosclerotic plaque, maximum reduction 65% proximal ICA Subclavian: PSV: 212.0 cm/s cm/s EDV: 0.0 cm/s CCA: Prox: PSV: 103.6 cm/s cm/s EDV: 15.3 cm/s Mid: PSV: 103.5 cm/s cm/s EDV: 17.6 cm/s Distal: PSV: 76.9 cm/s cm/s EDV: 17.1 cm/s BULB: PSV: 112.4 cm/s cm/s EDV: 17.1 cm/s ICA: Prox: PSV: 109.7 cm/s cm/s EDV: 19.2 cm/s Mid: PSV: 85.4 cm/s cm/s EDV: 14.4 cm/s Distal: PSV: 96.7 cm/s cm/s EDV: 24.1 cm/s ECA: PSV: 139.2 cm/s cm/s EDV: 7.1 cm/s VERTEBRAL: PSV: 92.7 cm/s cm/s EDV: 12.4 cm/s ICA/CCA ratio: PSV: 1.1 EDV: 1.1 IMPRESSION: 0-49% flow stenosis in the right internal carotid artery 65% flow stenosis measured in the proximal left internal carotid artery Spectral Doppler US Thresholds (Reference: Denis EG, et al. Radiology 2000; 214:247-252) Stenosis (%) PSV (cm/sec) VICA/VCCA 0-49 <150 <2.5 50-69 150-225 2.5-4.0 >70 >225 >4.0 Electronically authenticated by: KARLIE KNOX Date: 2022-05-17 16:13 Normal [facility] CBC AUTO DIFFon 05-13-2022 BASO # 0.1 103/ul Normal 0.0-0.1 [facility] Comment on above: Performed By: #### C BC #### [facility] [address] [place] [address] Dr. Phil Acuña Basophils/100 WBC (Bld) 1.3 % Normal 0.2-2.0 [facility] Comment on above: Performed By: #### C BC #### [facility] [address] [place] [address] Dr. Phil Acuña EO # 0.2 103/ul Normal 0.0-0.7 [facility] Comment on above: Performed By: #### C BC #### [facility] [address] [place] [address] Dr. Phil Acuña Eosinophils/100 WBC (Bld) 2.9 % Normal 0.9-7.0 [facility] Comment on above: Performed By: #### C BC #### [facility] [address] [place] [address] Dr. Phil Acuña Erythrocyte distribution wid th (RBC) [Ratio] 12.6 % Normal 11.0-15.0 [facility] Comment on above: Performed By: #### C BC #### [facility] [address] [place] [address] Dr. Phil Acuña Hematocrit (Bld) [Volume fraction] 44.6 % Normal 4 2.0-54.0 [facility] Comment on above: Performed By: #### C BC #### [facility] [address] [place] [address] Dr. Phil Acuña Hemoglobin (Bld) [Mass/Vol] 15.0 g/dL Normal 14.0-18. 0 [facility] Comment on above: Performed By: #### C BC #### [facility] [address] [place] [address] Dr. Phil Acuña IG # 0.01 10e3/ul Normal 0.00-0.03 [facility] Comment on above: Performed By: #### C BC #### [facility] [address] [place] [address] Dr. Phil Acuña IG % 0.2 % Normal 0.0-0.5 [facility] Comment on above: Performed By: #### C BC #### [facility] [address] [place] [address] Dr. Phil Acuña LYMPH # 1.1 103/ul Critically low 1.2-3.8 [facility] Comment on above: Performed By: #### C BC #### [facility] [address] [place] [address] Dr. Phil Acuña Lymphocytes/100 WBC (Bld) 20.8 % Normal 20.5-60.0 [facility] Comment on above: Performed By: #### C BC #### [facility] [address] [place] [address] Dr. Phil Acuña MANUAL DIFF REQ NO Normal [facility] Comment on above: Performed By: #### C BC #### [facility] [address] [place] [address] Dr. Phil Acuña MCH (RBC) [Entitic mass] 31.5 pg Normal 25.9-34.0 [facility] Comment on above: Performed By: #### C BC #### [facility] [address] [place] [address] Dr. Phil Acuña MCHC (RBC) [Mass/Vol] 33.6 g/dL Normal 29.9-35.2 [facility] Comment on above: Performed By: #### C BC #### [facility] [address] [place] [address] Dr. Phil Acuña MCV (RBC) [Entitic vol] 93.7 fL Normal 80.0-94.0 [facility] Comment on above: Performed By: #### C BC #### [facility] [address] [place] [address] Dr. Phil Acuña MONO # 0.6 103/ul Normal 0.3-0.8 [facility] Comment on above: Performed By: #### C BC #### [facility] [address] [place] [address] Dr. Phil Acuña Monocytes/100 WBC (Bld) 11.4 % Normal 1.7-12.0 [facility] Comment on above: Performed By: #### C BC #### [facility] [address] [place] [address] Dr. Phil Acuña NEUT # 3.3 103/ul Normal 1.4-6.5 [facility] Comment on above: Performed By: #### C BC #### [facility] [address] [place] [address] Dr. Phil Acuña Neutrophils/100 WBC (Bld) 63.4 % Normal 43.0-75.0 [facility] Comment on above: Performed By: #### C BC #### [facility] [address] [place] [address] Dr. Phil Acuña Platelet mean volume (Bld) [Entitic vol] 9.7 fL Normal 9.5-13.5 [facility] Comment on above: Performed By: #### C BC #### [facility] [address] [place] [address] Dr. Phil Acuña PLT 212 103/ul Normal 150-450 [facility] Comment on above: Performed By: #### C BC #### [facility] [address] [address] [address] Phil Acuña RBC 4.76 106/ul Normal 4.70-6.10 [facility] Comment on above: Performed By: #### C BC #### [facility] [address] [address] [address] Phil Acuña WBC 5.2 103/ul Normal 4.0-11.0 [facility] Comment on above: Performed By: #### C BC #### [facility] [address] [place] [address] [address] Phil Acuña GLYCOHEMOGLOBIN A1Con 2021 ADA RECOMMENDATION SEE BELOW Normal [facility] Comment on above: Result Comment: ADA RECOMMENDED LIMIT 4.0 - 6.0 ADA THERAPEUTIC TARGET < 7.0 ACTION SUGGESTED > 7.0 Performed By: #### A 1C #### [facility] [address] [address] [address] Phil Acuña Glucose [Mass/Vol] 123 mg/dL Normal [facility] Comment on above: Performed By: #### A 1C #### [facility] [address] [address] [address] Phil Acuña HbA1c (Bld) [Mass fraction] 5.9 % Normal 4.5-6.2 [facility] Comment on above: Performed By: #### A 1C #### [facility] [address] [address] [address] Phil Acuña LIPID PROFILEon 05-13-2022 CHOL-HDL RATIO NORM SEE BELOW Normal [facility] Comment on above: Result Comment: 3.3 - 4.4 LOW RISK 4.4 - 7.1 AVERAGE RISK 7.1 - 11.0 MODERATE RISK >11.0 HIGH RISK Performed By: #### L IPID, BMP, ALT ####[facility] [id number] [place] [address]Dr. Phil Acuña Cholesterol [Mass/Vol] 199 mg/dL Normal <=200 Th [facility] Comment on above: Performed By: #### L IPID, BMP, ALT ####[facility] [id number] [place], [place] [address]Qu. Phil Acuña Cholesterol in HDL [Mass/Vol] 84 mg/dL Critically high 4 0-60 [facility] Comment on above: Performed By: #### L IPID, BMP, ALT ####[facility] [id number] [place] [id number]. Arelisruss Domenico Cholesterol in LDL [Mass/Vol] 97.0 mg/dL Normal [facility] Comment on above: Performed By: #### L IPID, BMP, ALT ####[facility] [id number] [place] [id number]. Phil Acuña Cholesterol.total/Cholestero l in HDL [Mass ratio] 2.4 {ratio} Normal [facility] Comment on above: Performed By: #### L IPID, BMP, ALT ####[facility] [id number] [place] [id number]. Arelisruss Domenico HDL NORMAL > or = 60 mg/dl - LO W CARDIOVASCULAR RISK <40 mg/dl - HIGH CARDIOVASCULAR RISK Normal [facility] Comment on above: Performed By: #### L IPID, BMP, ALT ####[facility] [id number] [place] [id number]. Arelisruss Acuña LDL CALC NORMAL SEE BELOW Normal [facility] Comment on above: Result Comment: <100 mg/dl OPTIMAL 100 - 129 mg/dl NEAR OR ABOVE OPTIMAL 130 - 159 mg/dl BORDERLINE HIGH 160 - 189 mg/dl HIGH >190 mg/dl VERY HIGH Performed By: #### L IPID, BMP, ALT ####[facility] [id number] [place] [id number]. Phil Acuña Triglyceride [Mass/Vol] 90 mg/dL Normal <=150 [facility] Comment on above: Performed By: #### L IPID, BMP, ALT ####[facility] [id number] [place] [id number]. Phil Acuña VLDL CALC 18.0 mg/dL Normal [facility] Comment on above: Performed By: #### L IPID, BMP, ALT ####[facility] [id number] [place] [address]Dr. Phil Acuña PROF CHEM 8 (BAS METB)on Anion gap [Moles/Vol] 14.4 mmol/L Normal [facility] Comment on above: Performed By: #### L IPID, BMP, ALT #### [facility] Laboratory [address] [place] [address] [address] Phil Acuña Calcium [Mass/Vol] 9.5 mg/dL Normal 8.5-10.1 [facility] Comment on above: Performed By: #### L IPID, BMP, ALT #### [facility] Laboratory [address] [place] [address] [address] Phil Acuña Chloride [Moles/Vol] 101 mmol/L Normal 98-107 [facility] Comment on above: Performed By: #### L IPID, BMP, ALT #### [facility] Laboratory [address] [place] [address] [address] Phil Acuña CO2 [Moles/Vol] 29.9 mmol/L Normal 21.0-32.0 [facility] Comment on above: Performed By: #### L IPID, BMP, ALT #### [facility] Laboratory [address] [place] [address] [address] Phil Acuña Creatinine [Mass/Vol] 0.89 mg/dL Normal 0.70-1.30 [facility] Comment on above: Performed By: #### L IPID, BMP, ALT #### [facility] Laboratory [address] [place] [address] [address] Phil Acuña EGFR-AF BELARUSIAN >60 Normal >=60 [facility] Comment on above: Performed By: #### L IPID, BMP, ALT #### [facility] Laboratory [address] [place] [address] [address] Phil Acuña EGFR-NON AF BELARUSIAN >60 Normal >=60 [facility] Comment on above: Performed By: #### L IPID, BMP, ALT #### [facility] Laboratory [address] [place] [address] [address] Phil Acuña Glucose [Mass/Vol] 118 mg/dL Critically high 74-106 [facility] Comment on above: Performed By: #### L IPID, BMP, ALT #### [facility] Laboratory [address] [place] [address] [address] Phil Acuña Potassium [Moles/Vol] 4.3 mmol/L Normal 3.5-5.1 [facility] Comment on above: Performed By: #### L IPID, BMP, ALT #### [facility] Laboratory [address] [place] [address] [address] Phil Acuña Sodium [Moles/Vol] 141 mmol/L Normal 136-145 [facility] Comment on above: Performed By: #### L IPID, BMP, ALT #### [facility] Laboratory [address] [place] [address] [address] Phil Acuña Urea nitrogen [Mass/Vol] 23.0 mg/dL Critically high 7.0-18 .0 [facility] Comment on above: Performed By: #### L IPID, BMP, ALT #### [facility] Laboratory [address] [place] [address] [address] Phil Acuña Urea nitrogen/Creatinine [Mass ratio] 25.8 mg/mg Normal [facility] Comment on above: Performed By: #### L IPID, BMP, ALT #### [facility] Laboratory [address] [place] [address] [address] Phil Acuña [facility] 05-13-2022 ALT [Catalytic activity/Vol] 31 U/L Normal 16-63 [facility] Comment on above: Performed By: #### L IPID, BMP, ALT ####[facility] [id number] [place], [place] [address]LcDr. Phil Acuña community outreach viviana hall 09-02-2021 community outreach [facility] [place] [address] Ultrasound Report Signed Patient: Baljinder Brunner MR#: [id number] 5 : 1950 Acct:[id number] Age/Sex: 70 / M ADM Date: 08/28/21 Loc: Room: Type: DEP REF Attending Dr: Ross Montague Ordering Provider: ROSS MONTAGUE Date of Service: 08/28/21 /US [facility] outreach carotid: SCREENING Copies to: [facility] CAROTID DUPLEX INDICATION: [facility] outreach screening program PROCEDURE: Color-flow duplex scanning is used to interrogate the extracranial carotid arterial system, as well as both vertebral arteries. Both carotid bifurcations show mild to moderate heterogeneous plaque formation. The proximal right internal carotid artery shows a highest peak systolic velocity of 125 cm/s with an end-diastolic velocity of 16.2 cm/s . The mid internal carotid artery measures 125 cm/s peak systolic and 21.7 cm/s end diastolic. The distal segment measures 104 cm/s peak systolic with an end diastolic velocity of 18.6 cm/s . The velocities of the right common carotid artery are 91.9 cm/s peak systolic and 16.8 cm/s end-diastolic proximally and 107 cm/s peak systolic and 18.6 cm/s end diastolic distally. The peak systolic velocity ratio of the internal to the common carotid artery is 1.17. The proximal left internal carotid artery shows a highest peak systolic velocity of 109 cm/s with an end-diastolic velocity of 22.4 cm/s . The mid internal carotid artery measures 151 cm/s peak systolic and 31.2 cm/s end diastolic. The distal segment measures 134 cm/s peak systolic with an end diastolic velocity of 24.3 cm/s . The velocities of the left common carotid artery are 116 cm/s peak systolic and 14.9 cm/s end-diastolic proximally and 100 cm/s peak systolic and 17.4 cm/s end diastolic distally. The peak systolic velocity ratio of the internal to the common carotid artery is 1.3 . US/US [facility] carotid IMPRESSION: MILD TO MODERATE PLAQUE FORMATION IS NOTED BILATERAL EXTRACRANIAL CAROTID ARTERIES. MODERATE STENOSIS OF 50-69% WAS FOUND IN THE LEFT INTERNAL CAROTID ARTERY. No stenoses was identified in the right side. Impression dictated by: Jose Steinberg MD09/02/2021 8:00 AM Dictation Location: [place] [address] Tech: [facility] Transcribed By: VISHAL 09/02/21 08 Dictated By: Jose Steinberg MD 09/02/21 0759 Signed By: 09/02/21 0800 [facility] ANES POSTPROC EVALon 021 ANES POSTPROC EVAL HNO ID: [id number] Author: Brent Balbuena MD Service: Anesthesiology Author Type: Anesthesiologist Type: Anesthesia Postprocedure Evaluation Filed: 07/28/2021 10:28 AM Note Text: POST ANESTHESIA EVALUATION NOTE : 1950 Procedure Summary Date: 07/28/21 Room / Location: [address] Anesthesia Start: 954 Anesthesia Stop: 1017 Procedures: PHACOEMULSIFICATION CATARACT IMPLANT INTRAOCULAR LENS W/O ENDOSCOPIC CYCLOPHOTOCOAGULATION (Left Eye) OPHTHALMIC BIOMETRY BY PARTIAL COHERENCE INTERFEROMETRY W/INTRAOCULAR LENS POWER CALCULATION (Left Eye) Diagnosis: Combined form of age-related cataract, both eyes Surgeons: Brianna Bender V, MD Responsible Provider: Brent Balbuena MD Anesthesia Type: MAC ASA Status: 2 Anesthesia Type: MAC Last vitals Vitals Value Taken Time BP 150/76 07/28/21 1026 Temp 36.8 ?C (98.2 ?F) 07/28/21 1016 HR SpO2 52 07/28/21 1026 Resp 16 07/28/21 1026 SpO2 99 % 07/28/21 1026 Post Anesthesia Patient Status Patient Evaluation: PACU. PACU/ICU Patient Condition: stable. Anticipated Disposition: phase 2 then home. Neurological Status: aware and responsive. Pulmonary Status: breathing comfortably on room air Airway Control: returned to baseline unsupported. Cardiovascular Status: stable. Pain Management: clinically adequate Postoperative Hydration: acceptable. Intraoperative Events: no significant anesthesia events Recommendation: continue current plan of care and further care per PACU/ICU/floor team. No complications documented. SIGNATURE: Brent Balbuena MD PATIENT NAME: Baljinder Brunner DATE: July 28, 2021 TIME: 10:27 AM CSN: [id number] [facility] ANES PRE-OPon 07-28-2021 ANES PRE-OP HNO ID: [id number] Author: Brent Balbuena MD Service: Anesthesiology Author Type: Anesthesiologist Type: Anesthesia Preprocedure Evaluation Filed: 07/28/2021 9:26 AM Note Text: ANESTHESIOLOGY DAY OF SURGERY NOTE : 1950 Procedure(s) (LRB): PHACOEMULSIFICATION CATARACT IMPLANT INTRAOCULAR LENS W/O ENDOSCOPIC CYCLOPHOTOCOAGULATION (Left) OPHTHALMIC BIOMETRY BY PARTIAL COHERENCE INTERFEROMETRY W/INTRAOCULAR LENS POWER CALCULATION (Left) Surgeon(s): Brianna Benedr V, MD Estimated body mass index is 23 kg/m? as calculated from the following: Height as of this encounter: 162.6 cm (5' 4 ). Weight as of this encounter: 60.8 kg (134 lb). Most recent hematocrit and potassium results: No results found for this basename: HCT,HEMATOCRIT,K,POTASSIUM Relevant Problems CARDIO (+) HTN (hypertension) I - PHYSICAL EVALUATION AIRWAY Patient intubated: No. Tracheostomy tube not present Mallampati: II. TM distance: >3 FB. Neck ROM: full ROM without neurological symptoms. Mouth opening: adequate. Short neck: no. Thick neck: no DENTAL Dental findings: teeth intact. Additional exam findings: yes. CARDIOVASCULAR Normal cardiovascular observations. Rhythm: regular Rate: normal PULMONARY Normal pulmonary observations. Breath sounds clear to auscultation. II - ANESTHESIA PLAN ASA Score: 2 Anesthetic Plan: MAC NPO Status: adequate Monitoring plan: Standard ASA. Postoperative analgesic plan: multimodal analgesia. Anesthetic Risks, Benefits, Alternatives, Personnel Discussed. Consent obtained from: patient.Patient / Surrogate agrees to blood products: blood products not planned Significant changes in the patient condition since the History and Physical, not otherwise documented in primary service progress note: no. Potential Anesthesia issues that may suggest increased risk of complications or contraindication to planned procedure: none. Vitals Value Taken Time BP 187/81 07/28/21899 Pulse 57 07/28/21899 Resp 16 07/28/21899 Temp 35.9 ?C (96.6 ?F) 07/28/21899 SpO2 99 % 07/28/21899 Facility-Administered Medications as of 07/28/2021 Medication Dose Route Frequency - NaCl 0.9% iv infusion 30 mL/hr INTRAVENOUS CONTINUOUS - [START ON 07/29/2021] lidocaine 2 % (XYLOCAINE) OTHER Insurance Compliance Analyst to OR - tetracaine (PF) 0.5 % 2 Drop (OPTICAINE) 2 Drop LEFT EYE q 5 MIN - PHENYLephrine 2.5 % 1 Drop (AK-DILATE, KALIE-SYNEPHRINE) 1 Drop LEFT EYE EVERY 5 MINUTES X 3 DOSES - tropicamide 1 % 1 Drop (MYDRIACYL) 1 Drop LEFT EYE EVERY 5 MINUTES X 3 DOSES - cyclopentolate 1 % 1 Drop (CYCLOGYL) 1 Drop LEFT EYE Pre-Op PRN - keTORolac 0.5 % 1 Drop (ACULAR) 1 Drop LEFT EYE q 5 MIN - Povidone-Iodine 5 % 30 mL ophth soln (BETADINE) 30 mL LEFT EYE ONCE - balanced salts 15 mL (BSS) 15 mL LEFT EYE ONCE - [COMPLETED] tetracaine (PF) 0.5 % 2 Drop (OPTICAINE) 2 Drop RIGHT EYE EVERY 5 MINUTES X 3 DOSES - [COMPLETED] PHENYLephrine 2.5 % 1 Drop (AK-DILATE, KALIE-SYNEPHRINE) 1 Drop RIGHT EYE EVERY 5 MINUTES X 3 DOSES - [COMPLETED] tropicamide 1 % 1 Drop (MYDRIACYL) 1 Drop RIGHT EYE EVERY 5 MINUTES X 3 DOSES - [COMPLETED] keTORolac 0.5 % 1 Drop (ACULAR) 1 Drop RIGHT EYE q 5 MIN - [COMPLETED] Povidone-Iodine 5 % 30 mL ophth soln (BETADINE) 30 mL RIGHT EYE ONCE - [COMPLETED] balanced salts 15 mL (BSS) 15 mL RIGHT EYE ONCE Outpatient Medications as of 07/28/2021 Medication Sig - prednisoLONE acetate (PRED FORTE, ECONOPRED PLUS) 1 % ophthalmic suspension USE DIRECTED BY PHYSICIAN, IN OPERATIVE EYE, BEGINNING ONE DAY AFTER SURGERY - keTORolac (ACULAR) 0.5 % ophthalmic solution USE DIRECTED BY PHYSICIAN, IN OPERATIVE EYE, BEGINNING ONE DAY AFTER SURGERY - atorvastatin (LIPITOR) 40 mg tablet Take 40 mg by mouth daily at bedtime. - amLODIPine-benazepril (LOTREL) 5-20 mg per capsule Take by mouth. - hydroCHLOROthiazide (HYDRODIURIL, ESIDRIX) 25 mg tablet Take 25 mg by mouth once daily. - prednisoLONE acetate (PRED FORTE, ECONOPRED PLUS) 1 % ophthalmic suspension USE DIRECTED BY PHYSICIAN, IN OPERATIVE EYE, BEGINNING ONE DAY AFTER SURGERY - keTORolac (ACULAR) 0.5 % ophthalmic solution USE DIRECTED BY PHYSICIAN, IN OPERATIVE EYE, BEGINNING ONE DAY AFTER SURGERY - Tadalafil (CIALIS) 20 mg tab(s) Take 20 mg by mouth. I have interviewed and examined the patient. I have reviewed the medical record and/or the pre-anesthesia evaluation, pertinent labs, and test results. This contains updated information obtained within 48 hours of Surgery/Procedure. SIGNATURE: Brent Balbuena MD PATIENT NAME: Baljinder Brunner DATE: July 28, 2021 TIME: 9:26 AM CSN: [id number] [facility] NURSING PROGon 07-28-2021 NURSING PROG HNO ID: [id number] Author: Meryl Huynh RN Service: ? Author Type: Registered Nurse Type: Nursing Progress Note Filed: 07/28/2021 10:24 AM Note Text: POST OP LEARNING RESPONSE INSTRUCTION PROVIDED TO: Patient and Spouse METHOD OF INSTRUCTION: Written instruction - handouts Verbal instruction PATIENT / FAMILY RESPONSE: Verbalizes understanding of: INFECTION MANAGEMENT-Signs and symptoms of an infection and importance of contacting the physician PAIN MANAGEMENT-Effective strategies to manage pain in addition to pain medication PHYSICAL RESTRICTIONS-Physical restrictions and recommendations after discharge from the hospital POST-OPERATIVE INSTRUCTIONS-Correct actions to take to reduce postoperative complications WORSENING CONDITION-Signs and symptoms of a worsening condition that warrant a call to the physician FOLLOW-UP PLAN: Patient instructed to call with any further issues SUPPLEMENTAL MATERIAL: None REFERRAL (RECOMMENDATION): None Electronically Signed By: Meryl Huynh RN In Department: AMBULATORY SURGERY [facility] OPERATIVE NOon 07-28-2021 OPERATIVE NO HNO ID: [id number] Author: Brianna Bender V, MD Service: Ophthalmology Author Type: Physician Type: Operative Report Filed: 07/28/2021 10:15 AM Note Text: OPERATIVE REPORT DATE OF SERVICE: July 28, 2021 PRIMARY SURGEONS: Brianna Bender MD ACTIVITY SPECIALIST: None Procedure(s) (LRB): PHACOEMULSIFICATION CATARACT IMPLANT INTRAOCULAR LENS W/O ENDOSCOPIC CYCLOPHOTOCOAGULATION (Left) OPHTHALMIC BIOMETRY BY PARTIAL COHERENCE INTERFEROMETRY W/INTRAOCULAR LENS POWER CALCULATION (Left) PREOPERATIVE DIAGNOSIS: Combined cataract and regular astigmatism POSTOPERATIVE DIAGNOSIS: Combined cataract, regular astigmatism, presbyopia. OPERATIVE INDICATIONS: BAT 20/400 ANESTHESIA: Topical with monitored anesthesia care. OPERATIVE PROCEDURE: The patient was admitted to the operating suite where an IV and BP, EKG, and O2 monitors were placed. Nasal oxygen was administered. The operative eye was confirmed, marked, then pretreated with 2.5% tropicamide, 1% phenylephrine, and ciprofloxacin eye drops. Tetracaine drops were placed in the eye, then the patient was positioned seated on the side of the bed. With the patient fixing on a distant target, we placed cardenas at the 3 and 9 o?clock position at the surgical limbus using a purple surgical marker. After repositioning the patient in the supine position, topical lidocaine gel 2% was placed in a small ribbon in the lower cul-de-sac. The patient was then prepped and draped in the usual sterile fashion for intraocular surgery. After a time-out confirming correct patient, correct eye, correct operation, presence of allergies, and correct implant, an eyelid speculum was placed. Under the operating microscope a beveled clear corneal incision was created temporally with a [place] blade then a 2.4 mm keratome. The anterior chamber was reformed with Viscoat, after which the anterior capsule was opened centrally. Using the Utrata forceps a continuous curvilinear capsulorrhexis of approximately 5.5 mm round was created. Gentle hydrodissection was accomplished using preservative-free lidocaine on a 27-gauge canula. Using the Pancho phacoemulsification unit with the Kelman curved tip, the anterior chamber was entered and the nucleus was removed while it was in the bag. The epinuclear ring was dissected into several segments, then removed using the phacoemulsification unit set to the desired aspiration flow rate and ultrasound parameters. Great care was taken not to violate the posterior capsule. The silicone-tipped I and A instrument was used to remove the cortex and buff off any remaining cataractous material from the posterior capsule. The capsular bag was then reformed with Discovisc and a 25.0 [id number] cylindrical power toric AcrySof lens was inserted through the lips of the wound into the capsular bag. The intraocular lens was then rotated to an axis of 168 degrees, using the previously placed scleral ink markings as a guide. The axis determination was dictated by the preoperative vector analysis. Using the I and A instrument, the Discovisc was removed from the anterior chamber and capsular bag, and the implant was centered. Cefuroxime 1mg in 0.1 mL normal saline was introduced into the anterior chamber through the clear corneal incision using a 30 gauge cannula. The wound was checked and found to be watertight. At the end of the procedure, the cornea was clear, the anterior chamber was deep and clear, the pupil was round, the implant was centered and at the appropriate rotational axis within the capsular bag, and the posterior capsule was intact. The eyelid speculum was removed and timolol and Maxitrol eye drops were administered. A shield was affixed over the eye and the patient was sent to the recovery room, leaving the operating room in excellent condition. ESTIMATED BLOOD LOSS: <1mL SPECIMEN: None FINDINGS: Age-related cataract COMPLICATIONS: None Incision/Procedure Start Time: 10:05 AM Incision Close/Procedure End Time: 10:12 AM - Comanage with Dr Cline; relinquish care POD #1 Brianna BENDER MD [facility] ANES POSTPROC EVALon 021 ANES POSTPROC EVAL HNO ID: [id number] Author: Leyda Astudillo MD Service: Anesthesiology Author Type: Physician Type: Anesthesia Postprocedure Evaluation Filed: 07/14/2021 2:09 PM Note Text: POST ANESTHESIA EVALUATION NOTE : 1950 Procedure Summary Date: 07/14/21 Room / Location: [address] Anesthesia Start: 1121 Anesthesia Stop: 1140 Procedures: PHACOEMULSIFICATION CATARACT IMPLANT INTRAOCULAR LENS W/O ENDOSCOPIC CYCLOPHOTOCOAGULATION (Right Eye) OPHTHALMIC BIOMETRY BY PARTIAL COHERENCE INTERFEROMETRY W/INTRAOCULAR LENS POWER CALCULATION (Right Eye) Diagnosis: Combined form of age-related cataract, both eyes Surgeons: Brianna Bender V, MD Responsible Provider: Leyda Astudillo MD Anesthesia Type: MAC ASA Status: 2 Anesthesia Type: MAC Last vitals Vitals Value Taken Time BP 139/69 07/14/21 1150 Temp 36.2 ?C (97.2 ?F) 07/14/21 1140 HR SpO2 62 07/14/21 1150 Resp 16 07/14/21 1150 SpO2 97 % 07/14/21 1150 Post Anesthesia Patient Status Patient Evaluation: PACU. PACU/ICU Patient Condition: stable. Anticipated Disposition: phase 2 then home. Neurological Status: aware and responsive. Pulmonary Status: breathing comfortably on room air Airway Control: returned to baseline unsupported. Cardiovascular Status: stable. Pain Management: clinically adequate - multimodal analgesia pain management approach Postoperative Hydration: acceptable. Intraoperative Events: no significant anesthesia events Recommendation: continue current plan of care. No complications documented. SIGNATURE: Leyda Astudillo MD PATIENT NAME: Baljinder Brunner DATE: July 14, 2021 TIME: 2:09 PM CSN: [id number] Normal [facility] ANES PRE-OPon 07-14-2021 ANES PRE-OP HNO ID: [id number] Author: Leyda Astudillo MD Service: Anesthesiology Author Type: Physician Type: Anesthesia Preprocedure Evaluation Filed: 07/14/2021 11:04 AM Note Text: ANESTHESIOLOGY DAY OF SURGERY NOTE : 1950 Procedure(s) (LRB): PHACOEMULSIFICATION CATARACT IMPLANT INTRAOCULAR LENS W/O ENDOSCOPIC CYCLOPHOTOCOAGULATION (Right) OPHTHALMIC BIOMETRY BY PARTIAL COHERENCE INTERFEROMETRY W/INTRAOCULAR LENS POWER CALCULATION (Right) Surgeon(s): Brianna Bender V, MD Estimated body mass index is 23 kg/m? as calculated from the following: Height as of 07/08/21: 162.6 cm (5' 4 ). Weight as of 07/08/21: 60.8 kg (134 lb). Most recent hematocrit and potassium results: No results found for this basename: HCT,HEMATOCRIT,K,POTASSIUM Relevant Problems CARDIO (+) HTN (hypertension) Other (+) HLD (hyperlipidemia) I - PHYSICAL EVALUATION AIRWAY Patient intubated: No. Mallampati: II. TM distance: >3 FB. Neck ROM: full ROM without neurological symptoms. Mouth opening: adequate. Short neck: no. Thick neck: no DENTAL Normal dental observations. Dental findings: teeth intact. Additional exam findings: no II - ANESTHESIA PLAN ASA Score: 2 Anesthetic Plan: MAC NPO Status: adequate Monitoring plan: Standard ASA. Postoperative analgesic plan: parenteral or oral opioids and multimodal analgesia. Anesthetic Risks, Benefits, Alternatives, Personnel Discussed. Consent obtained from: patient.Patient / Surrogate agrees to blood products: blood products not planned DNR status not reviewed with patient and/or family prior to surgery. Significant changes in the patient condition since the History and Physical, not otherwise documented in primary service progress note: no. Potential Anesthesia issues that may suggest increased risk of complications or contraindication to planned procedure: none. Vitals Value Taken Time BP 177/79 07/14/21 1032 Pulse 63 07/14/21 1032 Resp 17 07/14/21 1032 Temp 36.4 ?C (97.5 ?F) 07/14/21 1032 SpO2 100 % 07/14/21 1032 Facility-Administered Medications as of 07/14/2021 Medication Dose Route Frequency - NaCl 0.9% iv infusion 30 mL/hr INTRAVENOUS CONTINUOUS - [START ON 07/15/2021] lidocaine 2 % (XYLOCAINE) OTHER Insurance Compliance Analyst to OR - [COMPLETED] tetracaine (PF) 0.5 % 2 Drop (OPTICAINE) 2 Drop RIGHT EYE EVERY 5 MINUTES X 3 DOSES - [COMPLETED] PHENYLephrine 2.5 % 1 Drop (AK-DILATE, KALIE-SYNEPHRINE) 1 Drop RIGHT EYE EVERY 5 MINUTES X 3 DOSES - [COMPLETED] tropicamide 1 % 1 Drop (MYDRIACYL) 1 Drop RIGHT EYE EVERY 5 MINUTES X 3 DOSES - cyclopentolate 1 % 1 Drop (CYCLOGYL) 1 Drop RIGHT EYE Pre-Op PRN - [COMPLETED] keTORolac 0.5 % 1 Drop (ACULAR) 1 Drop RIGHT EYE q 5 MIN - [COMPLETED] Povidone-Iodine 5 % 30 mL ophth soln (BETADINE) 30 mL RIGHT EYE ONCE - [COMPLETED] balanced salts 15 mL (BSS) 15 mL RIGHT EYE ONCE Outpatient Medications as of 07/14/2021 Medication Sig - atorvastatin (LIPITOR) 40 mg tablet Take 40 mg by mouth daily at bedtime. - amLODIPine-benazepril (LOTREL) 5-20 mg per capsule Take by mouth. - hydroCHLOROthiazide (HYDRODIURIL, ESIDRIX) 25 mg tablet Take 25 mg by mouth once daily. - prednisoLONE acetate (PRED FORTE, ECONOPRED PLUS) 1 % ophthalmic suspension USE DIRECTED BY PHYSICIAN, IN OPERATIVE EYE, BEGINNING ONE DAY AFTER SURGERY - keTORolac (ACULAR) 0.5 % ophthalmic solution USE DIRECTED BY PHYSICIAN, IN OPERATIVE EYE, BEGINNING ONE DAY AFTER SURGERY - Tadalafil (CIALIS) 20 mg tab(s) Take 20 mg by mouth. I have interviewed and examined the patient. I have reviewed the medical record and/or the pre-anesthesia evaluation, pertinent labs, and test results. This contains updated information obtained within 48 hours of Surgery/Procedure. SIGNATURE: Leyda Astudillo MD PATIENT NAME: Baljinder Brunner DATE: July 14, 2021 TIME: 11:04 AM CSN: [id number] Normal [facility] OPERATIVE NOon 07-14-2021 OPERATIVE NO HNO ID: [id number] Author: Brianna Bender V, MD Service: Ophthalmology Author Type: Physician Type: Operative Report Filed: 07/14/2021 11:37 AM Note Text: OPERATIVE REPORT DATE OF SERVICE: July 14, 2021 PRIMARY SURGEON: Brianna Bender M.D. ACTIVITY SPECIALIST: None Procedure(s) (LRB): PHACOEMULSIFICATION CATARACT IMPLANT INTRAOCULAR LENS W/O ENDOSCOPIC CYCLOPHOTOCOAGULATION (Right) OPHTHALMIC BIOMETRY BY PARTIAL COHERENCE INTERFEROMETRY W/INTRAOCULAR LENS POWER CALCULATION (Right) ANESTHESIA: Topical with monitored anesthesia care. PREOPERATIVE DIAGNOSIS: Combined cataract, s/p RK POSTOPERATIVE DIAGNOSIS: Pseudophakia, presbyopia, s/p RK OPERATIVE INDICATIONS: BAT 20/400 OPERATIVE PROCEDURE: The patient was admitted to the operating suite where an IV and BP, EKG, and O2 monitors were placed. Nasal oxygen was administered. The operative eye was confirmed, marked, then pretreated with 2.5% tropicamide, 1% phenylephrine, and ciprofloxacin eye drops. With the patient in the supine position, topical lidocaine gel 2% was placed in a small ribbon in the lower cul-de-sac. The patient was then prepped and draped in the usual sterile fashion for intraocular surgery. After a time-out confirming correct patient, correct eye, correct operation, presence of allergies, and correct implant, an eyelid speculum was placed. Under the operating microscope a beveled clear corneal incision was created temporally with a [place] blade then a 2.4 mm keratome. The anterior chamber was reformed with Viscoat, after which the anterior capsule was opened centrally. Using the Utrata forceps a continuous curvilinear capsulorrhexis of approximately 5.5 mm round was created. Gentle hydrodissection was accomplished using preservative-free lidocaine on a 27-gauge cannula. Using the Pancho phacoemulsification unit with the TwinStrata curved tip, the anterior chamber was entered and the nucleus was removed while it was in the bag. The epinuclear ring was dissected into several segments, then removed using the phacoemulsification unit set to the desired aspiration flow rate and ultrasound parameters. It was necessary to use chopper forceps at various intervals to aid in the fragmentation of the dense lens material. Great care was taken not to violate the posterior capsule. The silicone-tipped I and A instrument was used to remove the cortex and buff off any remaining cataractous material from the posterior capsule. The capsular bag was then reformed with Discovisc and the following Intraocular lens implant Implant Name Type Inv. Item Serial No. Metal Wire Technician Lot No. LRB Model Num No. Used LENS IOL 0D +23.5 AEB UV ABS - [id number] Intraocular Lens LENS IOL 0D +23.5 ABE UV ABS [id number] [employer] Right [id number] was inserted through the lips of the wound into the capsular bag. Using the I and A instrument, the Discovisc was removed from the anterior chamber and capsular bag, and the implant was centered. Cefuroxime 1mg in 0.1 mL normal saline was introduced into the anterior chamber through the clear corneal incision using a 30 gauge cannula. The wound was checked and found to be watertight. At the end of the procedure, the cornea was clear, the anterior chamber was deep and clear, the pupil was round, the implant was centered within the capsular bag, and the posterior capsule was intact. The eyelid speculum was removed and prednisolone acetate 1% and timolol 0.5% eye drops were administered. A shield was affixed over the eye and the patient was sent to the recovery room, leaving the operating room in excellent condition. ESTIMATED BLOOD LOSS: <1mL SPECIMEN: None FINDINGS: Age-related cataract COMPLICATIONS: None Incision/Procedure Start Time: 11:29 AM Incision Close/Procedure End Time: 11:36 AM - Comanage with Dr Cline; [facility] POD #1 Brianna BENDER MD [facility] HISTORY PHYSICALon HISTORY PHYSICAL HNO ID: [id number] Author: Delphine Peña PA-C Service: ? Author Type: Physician Pharmaceutical Worker Type: HANDP Filed: 07/08/2021 10:38 AM Note Text: HISTORY AND PHYSICAL EXAMINATION SERVICE DATE: 07/08/2021 SERVICE TIME: 10:30 AM PRIMARY CARE PHYSICIAN: No primary care provider on file. REASON FOR VISIT: Baljinder Brunner is a 70 year old male who is scheduled for PHACOEMULSIFICATION CATARACT IMPLANT IOL at the request of Dr. Linn for consultation. My final recommendation will be communicated back to the requesting physician by way of shared medical record or letter. The patient has the following: ACTIVE PROBLEM LIST Htn (Hypertension) Hld (Hyperlipidemia) Subjective CHIEF COMPLAINT: Vision Changes HPI: 70 year old male presents with progressively worsening vision. Reports blurred and decreased vision, particularly with reading and driving / reading road signs. Denies eye pain. Recommended for cataract surgery. PAST MEDICAL HISTORY Diagnosis Date - High cholesterol - Hypertension - Prostate cancer screening PAST SURGICAL HISTORY Procedure Laterality Date - COLONOSCOPY FAMILY HISTORY Problem Relation Age of Onset - Cataract Mother - Glaucoma Other SOCIAL HISTORY: Social History Tobacco Use - Smoking status: Former Smoker Types: Cigarettes Quit date: 1987 Years since quittin.6 - Smokeless tobacco: Current User Types: Chew - Tobacco comment: does smoke cigar occasinal. Substance Use Topics - Alcohol use: Yes Comment: 2 beers a day x5 days. - Drug use: Not Currently Comment: denies tx for drug/alcohol abus in the past. MEDICATIONS: Prior to Admission medications as of 07/08/21 1016 Medication Sig Last Dose Taking aspirin, enteric coated (ASPIRIN, ENTERIC COATED) 81 mg EC tablet Take 81 mg by mouth once daily. Yes atorvastatin (LIPITOR) 40 mg tablet Take 40 mg by mouth daily at bedtime. Yes amLODIPine-benazepril (LOTREL) 5-20 mg per capsule Take by mouth. Yes hydroCHLOROthiazide (HYDRODIURIL, ESIDRIX) 25 mg tablet Take 25 mg by mouth once daily. Yes Tadalafil (CIALIS) 20 mg tab(s) Take 20 mg by mouth. Yes No medication comments found. CURRENT ALLERGIES: ALLERGIES No Known Allergies REVIEW OF SYSTEMS: PAIN ASSESSMENT: General: No weight loss, malaise or fevers. Neuro: No history of TIA's, stroke, SURVEY FIELD TECHNICIAN tumor, impaired sensorium, hemiplegia, paraplegia or quadraplegia. No neurological symptoms or problems. Respiratory: No history of current cough or dyspnea, or pneumonia in the past 6 weeks. No history of respiratory/pulmonary symptoms or problems. Cardiovascular: No history of HTN requiring medication, no history of angina, CHF, TX, cardiac surgery or stents. Denies rest pain, gangrene or revascularization/amputation for PVD. No history of cardiovascular symptoms or problems. + HTN, HLD GI: No history of GI symptoms or problems. No history of esophageal varices, recent ascites, or ETOH greater than 2 drinks per day. : No history of dysuria, frequency or incontinence,, stones or chronic kidney disease + ED on cialis Endocrine: No history of diabetes. Has not taken steroids within the past 30 days. No history of endocrinological symptoms or problems. + pre-diabetes, med managed Hematology: Chronic anti-coagulation / platelet meds (Aspirin) Oncology: No history of CA metastasis, chemo within 30 days, or radiotherapy within 90 days. Has not lost 10% of body wt in 6 months. No history of oncological symptoms or problems. Psych: No history of psychiatric symptoms or problems. Musculoskeletal: Negative for joint pain or swelling, back pain or muscle pain. Skin: Negative for lesions, rash and itching. Objective PHYSICAL EXAM: VITALS: BP 152/55 Pulse 65 Temp (Src) 97.5 (Temporal Artery) Resp 18 Ht 5' 4 (1.63m) Wt 134 lb (60.8kg) SpO2 100% BMI 22.99 kg/(m2). General: Alert and oriented, No acute distress, Healthy appearance Skin: Normal color, no rash, no lesions. HEENT: EOM, pupils equal, round and reactive. Cardiovascular: Normal S1 AND S2, no rubs, murmurs or gallops. No JVD. Pulse regular. Lungs: Normal breath sounds, no wheezes or crackles. Abdomen: Soft, non-tender, no rigidity. Extremities: No deformity, no edema or tenderness, no joint swelling or clubbing. Neurological: Normal cognition and motor skills. Pulses: Carotid and radial pulses normal +2. Diagnostic tests reviewed for today's visit: No results found for: HBA1C No new labs or tests Assessment/Plan HTN (hypertension) Assessment: on HCTZ and amlodipine-benazepril. Monitored per PCP. BP today 152/55 HLD (hyperlipidemia) Assessment: On statin METS: Do yardwork, such as raking leaves, weeding,or pushing a power mower (4.50 METs) Climb a flight of stairs or walk up a hill (5.50 METs) Participate in moderate recreational activities, such as golf, bowling, dancing, doubles tennis, or throwing a baseball or f (more content not included)... Normal [facility] No Panel Information [facility] Vital Signs Date Time Vital Sign Value Performing Clinician Facility 09-11-2023 08:33-0400 Blood Pressure Location Mann RIBEIRO [facility] 09-11-2023 08:33-0400 Diastolic blood pressure 84 mm[Hg] Mann RIBEIRO [facility] 09-11-2023 08:33-0400 Heart rate 66 /min Mann RIBEIRO [facility] 09-11-2023 08:33-0400 Respiratory rate 16 /min Mannlisa RIBEIRO [facility] 09-11-2023 08:33-0400 Systolic blood pressure 136 mm[Hg] Mann RIBEIRO [facility] 05-15-2023 09:00-0400 Body height 162.56 cm Erik Ball Other [employer] Other 05-15-2023 09:00-0400 Body mass index (BMI) [Ratio] 22.79 kg/m2 Erik Ball Other [employer] Other 05-15-2023 09:00-0400 Body weight 60.24 kg Erik Ball Other [employer] Other 05-15-2023 09:00-0400 Diastolic blood pressure 70 mm[Hg] Erik Ball Other [employer] Other 05-15-2023 09:00-0400 Respiratory rate 12 /min Erik Ball Other [employer] Other 05-15-2023 09:00-0400 Systolic blood pressure 179 mm[Hg] Erik Ball Other [employer] Other 09-09-2022 09:12-0400 Blood Pressure Location Mann RIBEIRO [facility] 09-09-2022 09:12-0400 Diastolic blood pressure 87 mm[Hg] Mann RIBEIRO [facility] 09-09-2022 09:12-0400 Heart rate 70 /min Mannlisa RIBEIRO [facility] 09-09-2022 09:12-0400 Respiratory rate 16 /min Mann RIBEIRO [facility] 09-09-2022 09:12-0400 Systolic blood pressure 139 mm[Hg] Mann RIBEIRO [facility] 07-18-2022 14:46-0400 Body height 162.56 cm MD Mann Ribeiro Work Phone: [facility] 07-18-2022 14:46-0400 Body weight 59.42 kg MD Mann Ribeiro Work Phone: [facility] 06-06-2022 09:07-0400 Blood Pressure Location Mann RIBEIRO [facility] 06-06-2022 09:07-0400 Diastolic blood pressure 91 mm[Hg] Mann RIBEIRO [facility] 06-06-2022 09:07-0400 Heart rate 68 /min Mann RIBEIRO [facility] 06-06-2022 09:07-0400 Systolic blood pressure 172 mm[Hg] Mann RIBEIRO [facility] Encounters Encounter Date Encounter Type Care Provider Facility Start: 09-16-2024 ambulatory Mann RIBEIRO Facili ty:[facility] Start: 11-01-2023 End: 11-01-2023 ambulatory Erik Holm Other [employer] Other Start: 11-01-2023 Telephone encounter Erik Holm [facility] Start: 10-26-2023 End: 10-26-2023 ambulatory Erik Holm Other [employer] Other Start: 10-26-2023 Telephone encounter Erik Holm [facility] Start: 09-11-2023 End: 09-12-2023 ambulatory Mann RIBEIRO Facility:[facility] Start: 09-11-2023 End: 09-11-2023 Patient encounter procedure Mann RIBEIRO [facility] Start: 05-16-2023 End: 05-16-2023 ambulatory Erik Holm Other [employer] Other Start: 05-16-2023 Telephone encounter Erik Holm [facility] Start: 05-15-2023 End: 05-15-2023 ambulatory Erik Holm Other [employer] Other Start: 05-15-2023 Encounter by compute r link Erik Holm [facility] Start: 05-15-2023 Patient encounter procedure Erik Holm [facility] Start: 09-15-2022 End: 09-16-[address] ERIK HOLM Facility: Start: 09-09-2022 End: 09-09-2022 Patient encounter procedure Mann RIBEIRO [facility] Start: 08-25-2022 End: 08-25-[address] MANN RIBEIRO Facility:[facility] Start: 08-24-2022 Encounter for preprocedural cardiovascular examination DR MANN RIBEIRO [facility] Start: 08-24-2022 Encounter for preprocedural laboratory examination DR MANN RIBEIRO [facility] Start: 08-22-2022 End: 08-23-[address] MANN RIBEIRO Facility:[facility] Start: 08-22-2022 End: 08-23-2022 Encounter for preprocedural cardiovascular examination DR MANN RIBEIRO Facility:[facility] Start: 08-05-2022 End: 08-26-2022 Pre-admission assessment Mann RIBEIRO [facility] Start: 07-18-2022 End: 07-18-2022 Patient encounter procedure MD Mann Ribeiro Work Phone: [facility] [place] Start: 06-16-2022 End: 06-16-2022 Patient encounter procedure Brianna Bender MD Work Phone: Ophthalmology Comment on above: PCO (posterior capsu lar opacification), bilateral (Primary Dx); Pseudophakia, both eyes; Glaucoma suspect of both eyes; History of refractive surgery - RK Right Eye and RK/AK Left Eye Start: 06-06-2022 End: 06-06-2022 Patient encounter procedure Mann RIBEIRO [facility] Start: 05-17-2022 End: 05-18-[address] ERIK HOLM Facility:[facility] Start: 05-13-2022 End: 05-14-[address] ERIK HOLM Facility:[facility] Procedures Date Procedure Procedure Detail Performing Clinician Start: 08-25-2022 MRI-US fusion guided transperineal biopsy of prostate Mann RIBEIRO Start: 07-18-2022 MR prostate wo/w con MD Mann Ribeiro Work Phone: Start: 06-16-2022 End: 06-16-2022 Post-cataract laser surgery Brianna Bender MD Work Phone: Start: 05-13-[address] LAURENT [place] Comment on above: Performed By: #### P SAD ####[facility] [id number] [place], [place] [address]DoDr. Phil Acuña Start: 09-24-2019 Transrectal biopsy o f prostate using ultrasound guidance Mann RIBEIRO Colonoscopy Mann RIBEIRO Plan of Treatment Date Care Activity Detail Author Start: 07-28-2022 Influenza vaccination INFLUENZA (#1) [facility] Start: 02-17-2022 COVID-19 VACCINE (4 - Booster for Pfizer series) COVID-19 VACCINE (4 - Booster for Pfizer series) [facility] Start: 11-27-2021 ADVANCE DIRECTIVE DISCUSSION ADVANCE DIRECTIVE DISCUSSION [facility] Start: 2016 PNEUMOCOCCAL: 65+ (1 - PCV) PNEUMOCOCCAL: 65+ (1 - PCV) [facility] Start: 2001 SHINGRIX VACCINE (1 of 2) SHINGRIX V ACCINE (1 of 2) [facility] Start: 1996 COLOGUARD (FIT-DNA) COLOGUARD (FIT-D NA) [facility] Start: 1996 Colonoscopy COLONOSCOPY [facility] Start: 1996 COLORECTAL CANCER SCREENING COLORECTAL CANCER SCREENING [facility] Start: [address] COLONOGRAPHY [facility] Start: 1996 DIABETES SCREEN DIABETES SCREEN [facility] Start: 1996 FECAL OCCULT BLOOD FECAL OCCULT BLOO D [facility] Start: 1996 SIGMOIDOSCOPY SIGMOIDOSCOPY [facility] Start: 1986 LIPID SCREEN LIPID SCREEN [facility] Start: 1970 Urine microalbumin profile DTAP,TDAP ,TD (1 - Tdap) [facility] Start: 1969 ANNUAL PCP TEAM SLASHER JV DISEASE VISIT ANNUAL PCP TEAM CHRONIC DISEASE VISIT [facility] Start: 1969 BP CONTROLLED (<130/80) BP CONTROLLE D (<130/80) [facility] Start: 1969 HEPATITIS C SCREENING HEPATITIS C SC VAIBHAV [facility] Start: 1963 Adult depression scr ines assessment DEPRESSION SCREENING [facility] Start: 1951 ABDOMINAL AORTIC ANE URYSM SCREENING ABDOMINAL AORTIC ANEURYSM SCREENING [facility] Immunizations Immunization Date Immunization Notes Care Provider Tim bocanegra 09-22-2022 influenza, high dose seasonal, preservative-free Erik Holm Other [employer] Other 09-13-2022 COVID-19 Pfizer (bivalent) Erik Holm Other [employer] Other 10-20-2021 COVID-19 Vaccine Pfi zer - Documentation Purposes Only Erik Holm Other [employer] Other 02-22-2021 COVID-19 Vaccine Pfi zer - Documentation Purposes Only Erik Holm Other [employer] Other 02-01-2021 COVID-19 Vaccine Pfi zer - Documentation Purposes Only Erik Holm Other [employer] Other 01-25-2021 SARS-CoV-2 (COVID-19 ) mRNA BNT-162b2 vax Mann RIBEIRO [facility] 04-20-2018 pneumococcal polysaccharide vaccine, 23 valent Erik Holm Other [employer] Other 04-19-2017 pneumococcal conjuga te vaccine, 13 valent Eirk Holm Other [employer] Other Payers Date Payer Category Payer Medicare [id number] 2016 Medicare MEDICARE MEDICAR E A AND B [id number] 2016-Present [phone] [place] [address] Medicare [id number] 2008 Unknown MMO MMO MEDICARE SUPPLEMENT [id number] 2008-Present [phone] [address] [place] [address] Indemnity [id number] 1959 Medicare [id number] 1959 Unknown [id number] 1951 Unknown [id number] 1951 Unknown [id number] 1951 Unknown [id number] 1951 Unknown [id number] 1951 Unknown [id number] 1951 Unknown [id number] 1951 Unknown [id number] 1950 Unknown [id number] Social History Date Type Detail Facility Start: 05-25-2020 End: 07-08-2021 Tobacco smoking status Ex-smoker (finding) [facility] Sex Assigned At Male [facility] End: 11-27-1987 History of tobacco use Current smoker [facility] End: 11-27-1987 History of tobacco use Cigarette Smoker [facility] Start: 07-08-2021 Tobacco use and exposure User of smokeless tobacco [facility] History of tobacco use [facility] Start: 06-16-2022 Alcohol intake Current drinke r of alcohol (finding) [facility] Start: 07-08-2021 History SDOH Alcohol Comment 2 beers a day x5 days. [facility] Start: 07-08-2021 Tobacco Comment does smoke cig ar occasinal. [facility] Start: 1950 Sex Assigned At Not on file C [facility] Start: 1950 Sex Assigned At Male F [facility] Medical Equipment Procedure Code Equipment Code Equipment Origin al Text Equipment Identifier Dates Lens Iol 0d +23. 5 Abe Uv Abs - [id number] Start: 07-14-2021 Comment on above: Description: -1.75 Lens Iol Acrysof Trc5 25.0 - [id number] Start: 07-28-2021 Comment on above: Description: n/a Functional Status Date Assessment Result Facility 09-11-2023 Functional Status N/A [facility] 09-09-2022 Functional Status N/A [facility] 06-06-2022 Functional Status N/A [facility] Clinical Notes 07-08-2021 to 10-26-2023 Note Date & Type Note Facility 10-26-2023 Evaluation note Encounter Date Diagnosis Assessment Notes Sep, Stenosis of left carotid artery (ICD-10 - I65.22) [employer] Other [id number] Hospital Discharge instructions Patient Education 09/11/2023 09:17:40 Benign Prostatic Hyperplasia Benign Prostatic Hyperplasia Benign prostatic hyperplasia (BPH) is an enlarged prostate gland that is caused by the normal agingprocess. The prostate may get bigger as a man gets older. The condition is not caused by cancer. The prostate is a walnut-sized gland that is involved in the production of semen. It is located in front of the rectum and below the bladder. The bladder stores urine. The urethra carries stored urine ou t of the body. An enlarged prostate can press on the urethra. This can make it harder to pass urine. The buildup of urine in the bladder can cause infection. Back pressure and infection may progress to bladder damage and kidney (renal) failure. What are the causes? This condition is part of the normal aging process. However, not all men develop problems from thiscondition. If the prostate enlarges away from the urethra, urine flow will not be blocked. If it enlarges toward the urethra and compresses it, there will be problems passing urine. What increases the risk? This condition is more likely to develop in men older than 50 years. What are the signs or symptoms? Symptoms of this condition include: Getting up often during the night to urinate. Needing to urinate frequently during the day. Difficulty starting urine flow. Decrease in size and strength of your urine stream. Leaking (dribbling) after urinating. Inability to pass urine. This needs immediate treatment. Inability to completely empty your bladder. Pain when you pass urine. This is more common if there is also an infection. Urinary tract infection (UTI). How is this diagnosed? This condition is diagnosed based on your medical history, a physical exam, and your symptoms. Tests will also be done, such as: A post-void bladder scan. This measures any amount of urine that may remain in your bladder after you finish urinating. A digital rectal exam. In a rectal exam, your health care provider checks your prostate by putting a lubricated, gloved finger into your rectum to feel the back of your prostate gland. This exam detects the size of your gland and any abnormal lumps or growths. An exam of your urine (urinalysis). A prostate specific antigen (PSA) screening. This is a blood test used to screen for prostate cancer. An ultrasound. This test uses sound waves to electronically produce a picture of your prostate gland. Your health care provider may refer you to a specialist in kidney and prostate diseases (urologist). How is this treated? Once symptoms begin, your health care provider will monitor your condition (active surveillance or watchful waiting). Treatment for this condition will depend on the severity of your condition. Treatment may include: Observation and yearly exams. This may be the only treatment needed if your condition and symptoms are mild. Medicines to relieve your symptoms, including: ?Medicines to shrink the prostate. ?Medicines to relax the muscle of the prostate. Surgery in severe cases. Surgery may include: ?Prostatectomy. In this procedure, the prostate tissue is removed completely through an open incision or with a laparoscope or robotics. ?Transurethral resection of the prostate (TURP). In this procedure, a tool is inserted through the opening at the tip of the penis (urethra). It is used to cut away tissue of the inner core of the prostate. The pieces are removed through the same opening of the penis. This removes the blockage. ?Transurethral incision (TUIP). In this procedure, small cuts are made in the prostate. This lessens the prostate's pressure on the urethra. ?Transurethral microwave thermotherapy (TUMT). This procedure uses microwaves to create heat. The heat destroys and removes a small amount of prostate tissue. ?Transurethral needle ablation (TUNA). This procedure uses radio frequencies to destroy and remove a small amount of prostate tissue. ?Interstitial laser coagulation (ILC). This procedure uses a laser to destroy and remove a small amount of prostate tissue. ?Transurethral electrovaporization (TUVP). This procedure uses electrodes to destroy and remove a small amount of prostate tissue. ?Prostatic urethral lift. This procedure inserts an implant to push the lobes of the prostate away from the urethra. Follow these instructions at home: Take wncu-mkj-scvydyw and prescription medicines only as told by your health care provider. Monitor your symptoms for any changes. Contact your health care provider with any changes. Avoid drinking large amounts of liquid before going to bed or out in public. Avoid or reduce how much caffeine or alcohol you drink. Give yourself time when you urinate. Keep all follow-up visits. This is important. Contact a health care provider if: You have unexplained back pain. Your symptoms do not get better with treatment. You develop side effects from the medicine you are taking. Your urine becomes very dark or has a bad smell. Your lower abdomen becomes distended and you have trouble passing urine. Get help right away if: You have a fever or chills. You suddenly cannot urinate. You feel light-headed or very dizzy, or you faint. There are large amounts of blood or clots in your urine. Your urinary problems become hard to manage. You develop moderate to severe low back or flank pain. The flank is the side of your body between the ribs and the hip. These symptoms may be an emergency. Get help right away. Call 911. Do not wait to see if the symptoms will go away. Do not drive yourself to the hospital. Summary Benign prostatic hyperplasia (BPH) is an enlarged prostate that is caused by the normal aging process. It is not caused by cancer. An enlarged prostate can press on the urethra. This can make it hard to pass urine. This condition is more likely to develop in men older than 50 years. Get help right away if you suddenly cannot urinate. This information is not intended to replace advice given to you by your health care provider. Make sure you discuss any questions you have with your health care provider. Document Revised: 06/01/2022 Document Reviewed: 06/01/2022 [employer] Patient Education 2022 [employer]. Follow Up Care 06/06/2022 09:36:13 With:SUSANNA NOVOA, Mann Wei, URL Address: [facility] [address], [place] [phone]- When:Within 1 Year(s) Comments:w/PSA [facility] 06-19-2023 Evaluation note* Encounter Date Diagnosis Assessment Notes Treatment Notes Treatment Clinical Notes Apr, Primary hypertension (ICD-10 - I10) This patient is instructed to consume a healthy, low-fat, low-salt diet. They are also encouraged to continue exercise to achieve/maintain a normal BMI. Apr, Medicare annual well ness visit, subsequent (ICD-10 - Z00.00) Personalized health advice was given to the beneficiary including a written plan for screenings discussed and provided. Advanced care planning reviewed and/or information given as requested. Additional counseling was provided here today in regards to, [ ]. The above visit was performed by [ ], under direct supervision of [ ]. Document reviewed and amended by provider signed below. Healthy diet and exercise. Reviewed age-appropriate preventive testing recommended. Apr, IFG (impaired fastin g glucose) (ICD-10 - R73.01) This patient is following a comprehensive diabetic treatment plan. They are checking their feet daily for calluses and nonhealing ulcers. They are being seen for yearly dilated eye examinations. Goals: SBP less than 130, LDL less than 100, FBS less than 140, AC and A1C less than 7%. They are checking their BS daily, will which are reviewed at the office visit. Continue regular routine monitoring of A1C,] Microalbumin, Dilated eye exam and Foot exam Apr, Pure hypercholestero lemia (ICD-10 - E78.00) Instructed on diet and exercise with continued statin therapy.Discussed the beneficial effects of lowering cholesterol in reducing the risk for cerebrovascular and cardiovascular disease. Apr, Elevated PSA (ICD-10 - R97.20) Yearly PSA and KAMRYN f/u Apr, Stenosis of left car otid artery (ICD-10 - I65.22) Carotid US: 50-69% 08/2021, 65% 04/2022, < 50% 08/2022 < 70% stenosis noted. Continue ASA and control BP, BS, CHol Apr, Prostate nodule (ICD -10 - N40.2) TRUS/BX: 08/2019, 04/2020, 07/2022 f/u Apr, Benign prostatic hyperplasia with lower urinary tract symptoms (ICD-10 - N40.1) Symptoms tolerable Apr, Nocturia (ICD-10 - R35.1) Apr, High risk medication use (ICD-10 - Z79.899) Gift Card [employer] Other 10-13-2022 Hospital Discharge instructions Patient Education 09/08/2022 10:57:38 Transurethral Resection of the Prostate Transurethral Resection of the Prostate Transurethral resection of the prostate (TURP) is the removal (resection) of part of the gland thatproduces semen (prostate gland). This procedure is done to treat benign prostatic hyperplasia (BPH). BPH is an abnormal, noncancerous (benign) increase in the number of cells that make up the prostate tissue. BPH causes the prostate to get bigger. The enlarged prostate can push against or block thetube that drains urine from the bladder out of the body (urethra). BPH can affect normal urine flowby causing bladder infections, difficulty controlling bladder function, and difficulty emptying thebladder. The goal of TURP is to remove enough prostate tissue to allow for a normal flow of urine. The procedure will allow you to empty your bladder more completely when you urinate so that you can urinate less often. In a transurethral resection, a thin telescope with a light, a tiny camera, and an electric cuttingedge (resectoscope) is passed through the urethra and into the prostate. The opening of the urethrais at the end of the penis. Tell a health care provider about: Any allergies you have. All medicines you are taking, including vitamins, herbs, eye drops, creams, and qftl-xmo-dszsiuv medicines. Any problems you or family members have had with anesthetic medicines. Any blood disorders you have. Any surgeries you have had. Any medical conditions you have. Any prostate infections you have had. What are the risks? Generally, this is a safe procedure. However, problems may occur, including: Infection. Bleeding. Allergic reactions to medicines. Damage to other structures or organs, such as: ?The urethra. ?The bladder. ?Muscles that surround the prostate. Difficulty getting an erection. Inability to control when you urinate (incontinence). Scarring, which may cause problems with urine flow. What happens before the procedure? Medicines Ask your health care provider about: Changing or stopping your regular medicines. This is especially important if you are taking diabetes medicines or blood thinners. Taking medicines such as aspirin and ibuprofen. These medicines can thin your blood. Do not take these medicines unless your health care provider tells you to take them. Taking ppgr-cje-gjqgxzl medicines, vitamins, herbs, and supplements. Eating and drinking Follow instructions from your health care provider about eating and drinking, which may include: 8 hours before the procedure stop eating heavy meals or foods, such as meat, fried foods, or fatty foods. 6 hours before the procedure stop eating light meals or foods, such as toast or cereal. 6 hours before the procedure stop drinking milk or drinks that contain milk. 2 hours before the procedure stop drinking clear liquids. Staying hydrated Follow instructions from your health care provider about hydration, which may include: Up to 2 hours before the procedure you may continue to drink clear liquids, such as water, clear fruit juice, black coffee, and plain tea. General instructions You may have a physical exam. You may have a blood or urine sample taken. Ask your health care provider what steps will be taken to help prevent infection. These may include: ?Washing skin with a germ-killing soap. ?Taking antibiotic medicine. Plan to have someone take you home from the hospital or clinic. You may not be able to drive for upto 10 days after your procedure. Plan to have a responsible adult care for you for at least 24 hours after you leave the hospital orclinic. This is important. What happens during the procedure? An IV will be inserted into one of your veins. You will be given one or more of the following: ?A medicine to help you relax (sedative). ?A medicine to make you fall asleep (general anesthetic). ?A medicine that is injected into your spine to numb the area below and slightly above the injection site (spinal anesthetic). Your legs will be placed in foot rests (stirrups) so that your legs are apart and your knees are bent. The resectoscope will be passed through your urethra to your prostate. Parts of your prostate will be resected using the cutting edge of the resectoscope. The resectoscope will be removed. A small, thin tube (catheter) will be passed through your urethra and into your bladder. The catheter will drain urine into a bag outside of your body. ?Fluid may be passed through the catheter to keep the catheter open. The procedure may vary among health care providers and hospitals. What happens after the procedure? Your blood pressure, heart rate, breathing rate, and blood oxygen level will be monitored until youleave the hospital or clinic. You may continue to receive fluids and medicines through an IV. You may have some pain. Pain medicine will be available to help you. You will have a catheter draining your urine. ?You may have blood in your urine. Your catheter may be kept in until your urine is clear. ?Your urinary drainage will be monitored. If necessary, your bladder may be rinsed out (irrigated) through your catheter. You will be encouraged to walk around as soon as possible. You may have to wear compression stockings. These stockings help prevent blood clots and reduce swelling in your legs. Do not drive for 24 hours if you were given a sedative during your procedure. Summary Transurethral resection of the prostate (TURP) is the removal (resection) of part of the gland thatproduces semen (prostate gland). The goal of this procedure is to remove enough prostate tissue to allow for a normal flow of urine. Follow instructions from your health care provider about taking medicines and about eating and drinking before the procedure. This information is not intended to replace advice given to you by your health care provider. Make sure you discuss any questions you have with your health care provider. Document Released: 11/13/2006 Document Revised: 03/04/2020 Document Reviewed: 08/14/2019 [employer] Patient Education 2020 [employer]. Follow Up Care 08/05/2022 14:41:24 With:SUSANNA NOVOA, Mann Wei, URL Address: [facility] [address] [place] [phone]- [phone] When:Within 1 Year(s) Comments:w/ PSA [facility] NoteHNO ID: [id number] Author: Brianna Bender V, MD Service: ? Author Type: Physician Type: Progress Notes Filed: 06/16/2022 2:50 PM Note Text: The documentation for this note was completed by Shannon Reina, COA acting as a scribe for Brianna BENDER MD. 06/16/2022 2:49 PM. ASSESSMENT / PLAN: 1. Posterior capsular opacity Both eyes -YAG capsulotomy Both eyes today (surgical care only) -Patient educated on posterior capsular opacity following cataract surgery. The risks, benefits, alternatives, personnel, and possible complications related to yttrium aluminum garnet (YAG) capsulotomy discussed with patient. Explained that risks include but are not limited to: increase in intraocular pressure, retinal tears/detachment, dislocation of the intraocular lens, and/or need for further procedures. Patient expresses understanding and elects to proceed with YAG capsulotomy of Both eyes performed by Dr. Bender. Informed consent form signed by physician and patient. Literature regarding signs and symptoms of retinal detachment offered. -The patient was offered a surgery/procedure at a [facility]. The surgeon/proceduralist and patient have discussed in detail the risk of exposure to and/or potential harm posed by the COVID-19 virus with having a surgery/procedure at this time versus the risk of delaying the surgery/procedure. It is not possible to know either the risk of delaying the surgery or procedure or chance of getting an infection with perfect accuracy, but a joint decision was made between the patient and the surgeon/proceduralist to proceed at this time with the scheduled surgery/procedure as indicated on the consent form. -F[facility] [address] [facility] P[facility] The documentation recorded by the scribe accurately reflects the service I personally performed and the decisions made by me. I have confirmed and edited as necessary the relevant ophthalmic history, ROS, and the exam findings as obtained by others. I have seen and examined Baljinder Brunner. I also have reviewed and agree with the assessment and plan as stated above and agree with all of its relevant components. Brianna BENDER MD June 16, 2022 2:49 [facility]07-21-2022 NoteHNO ID: [id number] Author: Radha Mitchell OD Service: ? Author Type: DOLLY PUSHER Type: Progress Notes Filed: 06/16/2022 3:09 PM Note Text: ASSESSMENT/PLAN: 1. PCO (posterior capsular opacification), bilateral - ICD9: 366.50, ICD10: H26.493 (primary diagnosis) OD>OS, ref by Dr. Cline. Eval with today. 2. Pseudophakia, both eyes - ICD9: V43.1, ICD10: Z96.1 3. Glaucoma suspect of both eyes - ICD9: 365.00, ICD10: H40.003 Dr. Cline following. History of SLT. 4. History of refractive surgery - RK Right Eye and RK/AK Left Eye - ICD9: V45.69, ICD10: Z98.890 Radha Mitchell, OD I have confirmed and edited as necessary the relevant ophthalmic history, ROS, and the exam findings as obtained by others. I have seen and examined this patient. I have discussed the case and the management of this patient's care with the resident or fellow as appropriate. I also have reviewed and agree with the assessment and plan as stated above and agree with all of its relevant components. Radha Mitchell OD June 16, 2022 2:33 [facility]07-21-2022 History of Present illness Narrative* Brianna Bender V, MD - 06/16/2022 2:49 PM EDT The documentation for this note was completed by KALA Barrios acting as a scribe for Brianna BENDER MD. 06/16/2022 2:49 PM. ASSESSMENT / PLAN: 1. Posterior capsular opacity Both eyes -YAG capsulotomy Both eyes today (surgical care only) -Patient educated on posterior capsular opacity following cataract surgery. The risks, benefits, alternatives, personnel, and possible complications related to yttrium aluminum garnet (YAG) capsulotomy discussed with patient. Explained that risks include but are not limited to: increase in intraocular pressure, retinal tears/detachment, dislocation of the intraocular lens,and/or need for further procedures. Patient expresses understanding and elects to proceed with YAG capsulotomy of Both eyes performed by Dr. Bender. Informed consent form signed by physician and patient. Literature regarding signs and symptoms of retinal detachment offered. -The patient was offered a surgery/procedure at a [facility] facility. The surgeon/proceduralist and patient have discussed in detail the risk of exposure to and/or potential harm posed by the COVID-19 virus with having a surgery/procedure at this time versus the risk of delaying the surgery/p rocedure. It is not possible to know either the risk of delaying the surgery or procedure or chanceof getting an infection with perfect accuracy, but a joint decision was made between the patient and the surgeon/proceduralist to proceed at this time with the scheduled surgery/procedure as indicated on the consent form. -F[facility] [address] [facility] POD #[facility]) The documentation recorded by the scribe accurately reflects the service I personally performed andthe decisions made by me. I have confirmed and edited as necessary the relevant ophthalmic history,ROS, and the exam findings as obtained by others. I have seen and examined Baljinder Brunner. I also have reviewed and agree with the assessment and plan as stated above and agree with all of its relevant components. Brianna BENDER MD June 16, 2022 2:49 PM * Radha Mitchell, OD - 06/16/2022 2:33 PM EDT ASSESSMENT/PLAN: 1. PCO (posterior capsular opacification), bilateral - ICD9: 366.50, ICD10: H26.493 (primary diagnosis) OD>OS, ref by Dr. Cline. Eval with today. 2. Pseudophakia, both eyes - ICD9: V43.1, ICD10: Z96.1 3. Glaucoma suspect of both eyes - ICD9: 365.00, ICD10: H40.003 Dr. Cline following. History of SLT. 4. History of refractive surgery - RK Right Eye and RK/AK Left Eye - ICD9: V45.69, ICD10: Z98.890 Radha Mitchell, OD I have confirmed and edited as necessary the relevant ophthalmic history, ROS, and the exam findings as obtained by others. I have seen and examined this patient. I have discussed the case and the management of this patient's care with the resident or fellow as appropriate. I also have reviewed andagree with the assessment and plan as stated above and agree with all of its relevant components. Radha Mitchell OD June 16, 2022 2:33 PM [facility] Discharge instructions Patient Education 06/06/2022 09:26:26 Prostate Cancer Screening Prostate Cancer Screening The prostate is a walnut-sized gland that is located below the bladder and in front of the rectum in males. The function of the prostate (prostate gland) is to add fluid to semen during ejaculation. Prostate cancer is the second most common type of cancer in men. A screening test for cancer is a test that is done before cancer symptoms start. Screening can helpto identify cancer at an early stage, when the cancer can be treated more easily. The recommended prostate cancer screening test is a blood test called the prostate-specific antigen (PSA) test. PSA is a protein that is made in the prostate. As you age, your prostate naturally produces more PSA. Abnormally high PSA levels may be caused by: Prostate cancer. An enlarged prostate that is not caused by cancer (benign prostatic hyperplasia, BPH). This condition is very common in older men. A prostate gland infection (prostatitis). Medicines to assist with hair growth, such as finasteride. Depending on the PSA results, you may need more tests, such as: A physical exam to check the size of your prostate gland. Blood and imaging tests. A procedure to remove tissue samples from your prostate gland for testing (biopsy). Who should have screening? Screening recommendations vary based on age. If you are younger than age 40, screening is not recommended. If you are age 40 54 and you have no risk factors, screening is not recommended. If you are younger than age 55, ask your health care provider if you need screening if you have oneof these risk factors: ?Being of -[place]ong[place] descent. ?Having a family history of prostate cancer. If you are age 55 69, talk with your health care provider about your need for screening and how often screening should be done. If you are older than age 70, screening is not recommended. This is because the risks that screening can cause are greater than the benefits that it may provide (risks outweigh the benefits). If you are at high risk for prostate cancer, your health care provider may recommend that you have screenings more often or start screening at a younger age. You may be at high risk if you: Are older than age 55. Are -Mongolian. Have a father, brother, or uncle who has been diagnosed with prostate cancer. The risk may be higher if your family member's cancer occurred at an early age. What are the benefits of screening? There is a small chance that screening may lower your risk of dying from prostate cancer. The chance is small because prostate cancer is typically a slow-growing cancer, and most men with prostate cancer from a different cause. What are the risks of screening? The main risk of prostate cancer screening is diagnosing and treating prostate cancer that would never have caused any symptoms or problems (overdiagnosis and overtreatment). PSA screening cannot tell you if your PSA is high due to cancer or a different cause. A prostate biopsy is the only procedure to diagnose prostate cancer. Even the results of a biopsy may not tell you if your cancer needs vadim treated. Slow-growing prostate cancer may not need any treatment other than monitoring, so diagnosing and treating it may cause unnecessary stress or other side effects. A prostate biopsy may also cause: Infection or fever. A false negative. This is a result that shows that you do not have prostate cancer when you actually do have prostate cancer. Questions to ask your health care provider When should I start prostate cancer screening? What is my risk for prostate cancer? How often do I need screening? What type of screening tests do I need? How do I get my test results? What do my results mean? Do I need treatment? Contact a health care provider if: You have difficulty urinating. You have pain when you urinate or ejaculate. You have blood in your urine or semen. You have pain in your back or in the area of your prostate. You have trouble getting or maintaining an erection (erectile dysfunction, ED). Summary Prostate cancer is a common type of cancer in men. The prostate (prostate gland) is located below the bladder and in front of the rectum. This gland adds fluid to semen during ejaculation. Prostate cancer screening may identify cancer at an early stage, when the cancer can be treated more easily. The prostate-specific antigen (PSA) test is the recommended screening test for prostate cancer. Discuss the risks and benefits of prostate cancer screening with your health care provider. If you are age 70 or older, screening is likely to lead to more risks than benefits (risks outweigh the benefits). This information is not intended to replace advice given to you by your health care provider. Make sure you discuss any questions you have with your health care provider. Document Released: 08/24/2018 Document Revised: 10/26/2018 Document Reviewed: 08/24/2018 [employer] Patient Education 2020 [employer]. 06/06/2022 09:26:22 Benign Prostatic Hyperplasia Benign Prostatic Hyperplasia Benign prostatic hyperplasia (BPH) is an enlarged prostate gland that is caused by the normal agingprocess and not by cancer. The prostate is a walnut-sized gland that is involved in the production of semen. It is located in front of the rectum and below the bladder. The bladder stores urine and the urethra is the tube that carries the urine out of the body. The prostate may get bigger as a man gets older. An enlarged prostate can press on the urethra. This can make it harder to pass urine. The build-up of urine in the bladder can cause infection. Back pressure and infection may progress to bladder damage and kidney (renal) failure. What are the causes? This condition is part of a normal aging process. However, not all men develop problems from this condition. If the prostate enlarges away from the urethra, urine flow will not be blocked. If it enlarges toward the urethra and compresses it, there will be problems passing urine. What increases the risk? This condition is more likely to develop in men over the age of 50 years. What are the signs or symptoms? Symptoms of this condition include: Getting up often during the night to urinate. Needing to urinate frequently during the day. Difficulty starting urine flow. Decrease in size and strength of your urine stream. Leaking (dribbling) after urinating. Inability to pass urine. This needs immediate treatment. Inability to completely empty your bladder. Pain when you pass urine. This is more common if there is also an infection. Urinary tract infection (UTI). How is this diagnosed? This condition is diagnosed based on your medical history, a physical exam, and your symptoms. Tests will also be done, such as: A post-void bladder scan. This measures any amount of urine that may remain in your bladder after you finish urinating. A digital rectal exam. In a rectal exam, your health care provider checks your prostate by putting a lubricated, gloved finger into your rectum to feel the back of your prostate gland. This exam detects the size of your gland and any abnormal lumps or growths. An exam of your urine (urinalysis). A prostate specific antigen (PSA) screening. This is a blood test used to screen for prostate cancer. An ultrasound. This test uses sound waves to electronically produce a picture of your prostate gland. Your health care provider may refer you to a specialist in kidney and prostate diseases (urologist). How is this treated? Once symptoms begin, your health care provider will monitor your condition (active surveillance or watchful waiting). Treatment for this condition will depend on the severity of your condition. Treatment may include: Observation and yearly exams. This may be the only treatment needed if your condition and symptoms are mild. Medicines to relieve your symptoms, including: ?Medicines to shrink the prostate. ?Medicines to relax the muscle of the prostate. Surgery in severe cases. Surgery may include: ?Prostatectomy. In this procedure, the prostate tissue is removed completely through an open incision or with a laparoscope or robotics. ?Transurethral resection of the prostate (TURP). In this procedure, a tool is inserted through the opening at the tip of the penis (urethra). It is used to cut away tissue of the inner core of the prostate. The pieces are removed through the same opening of the penis. This removes the blockage. ?Transurethral incision (TUIP). In this procedure, small cuts are made in the prostate. This lessens the prostate's pressure on the urethra. ?Transurethral microwave thermotherapy (TUMT). This procedure uses microwaves to create heat. The heat destroys and removes a small amount of prostate tissue. ?Transurethral needle ablation (TUNA). This procedure uses radio frequencies to destroy and remove a small amount of prostate tissue. ?Interstitial laser coagulation (ILC). This procedure uses a laser to destroy and remove a small amount of prostate tissue. ?Transurethral electrovaporization (TUVP). This procedure uses electrodes to destroy and remove a small amount of prostate tissue. ?Prostatic urethral lift. This procedure inserts an implant to push the lobes of the prostate away from the urethra. Follow these instructions at home: Take pkua-hmc-jsmusdy and prescription medicines only as told by your health care provider. Monitor your symptoms for any changes. Contact your health care provider with any changes. Avoid drinking large amounts of liquid before going to bed or out in public. Avoid or reduce how much caffeine or alcohol you drink. Give yourself time when you urinate. Keep all follow-up visits as told by your health care provider. This is important. Contact a health care provider if: You have unexplained back pain. Your symptoms do not get better with treatment. You develop side effects from the medicine you are taking. Your urine becomes very dark or has a bad smell. Your lower abdomen becomes distended and you have trouble passing your urine. Get help right away if: You have a fever or chills. You suddenly cannot urinate. You feel lightheaded, or very dizzy, or you faint. There are large amounts of blood or clots in the urine. Your urinary problems become hard to manage. You develop moderate to severe low back or flank pain. The flank is the side of your body between the ribs and the hip. These symptoms may represent a serious problem that is an emergency. Do not wait to see if the symptoms will go away. Get medical help right away. Call your local emergency services (911 in the [place] Do not drive yourself to the hospital. Summary Benign prostatic hyperplasia (BPH) is an enlarged prostate that is caused by the normal aging process and not by cancer. An enlarged prostate can press on the urethra. This can make it hard to pass urine. This condition is part of a normal aging process and is more likely to develop in men over the age of 50 years. Get help right away if you suddenly cannot urinate. This information is not intended to replace advice given to you by your health care provider. Make sure you discuss any questions you have with your health care provider. Document Released: 11/13/2006 Document Revised: 10/08/2019 Document Reviewed: 12/18/2017 [employer] Patient Education 2020 [place]. Follow Up Care 06/04/2021 08:51:29 With:Mann RIBEIRO MD, URL Address: [facility] [address], [place] [address]- When: Unknown Comments:Will schedule MRI of prostate w/wof/u in 1 year with PSA [facility] 08-12-2021 NoteHNO ID: [id number] Author: AGGIE Cartagena Service: ? Author Type: Biologist Type: Progress Notes Filed: 07/08/2021 11:46 AM Note Text: CONFIRM LEFT EYE DOMINANT. AIM PLANO LEFT EYE WITH TORIC IOL AIM -1.50 RIGHT EYE WITH IQ IOL. [facility] Future Appointments Appointment Date:06/09/2023 08:45:00 AM Scheduled Provider:Mann RIBEIRO MD Location:[facility] Appointment Type:URO Office Visit Diagnostic Tests Pending * PSA Total 06/06/22 [facility] evaluation + Plan note Future Appointments Appointment Date:09/09/2022 08:45:00 AM Scheduled Provider:[facility] Office Visit Appointment Date:06/09/2023 08:45:00 AM Scheduled Provider:Mann [facility]IBEIRO [facility] App[facility]ments Appointment Date:09/11/2023 08:45:00 AM Scheduled Provider:Mann RIBEIRO MD [facility] Appoint[facility] Type:URO Office Visit Diagnostic Tests Pending * PSA Total 09/09/22 [facility] evaluation + Plan note Future Appointments Appointment Date:09/16/2024 08:45:00 AM Scheduled Provider:Mann RIBEIRO MD Location:[facility] Appointment Type:URO Office Visit Diagnostic Tests Pending * PSA Total 09/11/23 [facility] evaluation note* Diagnosis PCO (posterior capsular opacification), bilateral- Primary After-cataract, unspecified Pseudophakia, both eyes Lens replaced by other means Glaucoma suspect of both eyes Preglaucoma, unspecified History of refractive surgery - RK Right Eye and RK/AK Left Eye Other states following surgery of eye and adnexa documented in this [facility] noteNo assessment information availableThe [facility] Work Phone: Evaluation noteNo InformationNort [facility] Other History general Narrative - Reported* Type Description Date Medical History Glaucoma Medical History Prostate nodule Medical History Elevated PSA Medical History Bilateral carotid bruits Medical History Benign prostatic hyp erplasia with lower urinary tract symptoms Medical History Hyperlipidemia type II Medical History Hypertension Medical History Impaired fasting blood sugar Medical History Left carotid stenosis Surgical History [facility] 08/25/2022 Surgical History Transrectal ultrasound (TRUS) [facility] biopsy 09/25/2019 Surgical History colonoscopy 2010 Hospitalization History see surgical history [place] [facility] Other Hospital course Narrative No data available for this section [facility] Hospital Discharge instructions No data available for this section [facility] No data available for this section [facility] Medications Administered Section Active Administered Medications - up to 3 most recent administrations Medication Order MAR Action Action Date Dose Rate Site fluorescein-benoxinate 0.25-0.4 % 1 Drop (FLURESS) 1 Drop, BOTH EYES, DIRECTED, Starting on Carlita 06/16/22 at 1400, Until Mon06/17/22 at 0159, Administer for applanation tonometry. In the event of a Fluress shortage, administer Brandi-Fluor 1 drop into both eyes as directed for applanation tonometry Given 06/16/2022 2:00 PM EDT 1 Drop PHENYLephrine 2.5 % 1 Drop (AK-DILATE, KALIE-SYNEPHRINE) 1 Drop, BOTH EYES, DIRECTED, Starting on Mon06/16/22 at 1400, Until Mon06/17/22 at 0159, Administer for dilation PROTECT FROM LIGHT Given 06/16/2022 2:00 PM EDT 1 Drop tropicamide 1 % 1 Drop (MYDRIACYL) 1 Drop, BOTH EYES, DIRECTED, Starting on Carlita 06/16/22 at 1400, Until Mon06/17/22 at 0159, Administer for dilation Given 06/16/2022 2:00 PM EDT 1 Drop Advance Directives Documents on File Type Date Recorded 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 Advance Directive(s) 07/28/2021 8:45 AM Advance Directive(s) 07/14/2021 9:48 AM Advance Directive(s) 07/08/2021 1:26 PM Advance Directive Response Recorded Date/ Time Advance Directives No July 07, 2022 9:23am Summary Purpose Family History No Family History Records FoundNo Family History Records FoundNo Family History Records Found No data available for this section No Family History Records Found Chief Complaint and Reason for Visit Chief Complaint Elevated PSA Additional Source Comments Care Team (unrecognized sect ion and content) Commodity Director Relationship Specialty Start Date End Date Erik Holm DO [address] [place] [address] PCP - General Internal Medicine 07/08/21 Team Status: Inactive Member Role Status Dates Mann Ribeiro MD Attending Provider Active Erik Holm DO Primary Care Provider Active Team Status: Active Member Role Status Chelly Holm DO Primary Care Provider Active Source Comments (unrecognize d section and content) In the event this informatio n is protected by the Federal Confidentiality of Alcohol and Drug Abuse Patient Records regulations: The Federal rules restrict any use of the information to criminally investigate or prosecute any alcohol or drug abuse patient.[facility] Reason for Visit (unrecogniz ed section and content) US results Reason Comments Posterior Capsule Opacification Evaluati on Both Eyes Pseudophakia IOL Right Eye AIM -1 .50 (08/14/2021) IOL Left Eye (07/28/2021) (unrecognized sect ion and content) No Status Records FoundNo Status Records FoundNo Status Records FoundNo Status Records Found INFORMATION SOURCE (unrecogn ized section and content) DATE CREATED AUTHOR 06/18/2022 [facility] DATE CREATED AUTHOR AUTHOR'S ORGANIZ ATION 07/24/2022 [facility] DATE CREATED AUTHOR AUTHOR'S ORGANIZ ATION 11/17/2022 [facility] DATE CREATED AUTHOR AUTHOR'S ORGANIZ ATION 09/13/2023 [facility] Goals (unrecognized section and content) Goals may be documented in a n alternate section FOR RECORDS PERTAINING TO PATIENTS WHO ARE OR HAVE BEEN ENROLLED IN A CHEMICAL DEPENDENCY/SUBSTANCEABUSE PROGRAM, SOME INFORMATION MAY BE OMITTED. This clinical summary was aggregated from multiple sources. Caution should be exercised in using it in the provision of clinical care. This summary normalizes information from multiple sources, and as a consequence, information in this document may materially change the coding, format and clinical context of patient data. In addition, data may be omitted in some cases. CLINICAL DECISIONS SHOULD BE BASED ON THE PRIMARY CLINICAL RECORDS. [facility] [employer] [facility]. provides no warranty or guarantee of the accuracy or completeness of information in this document.
[2023-11-15 10:24] LABS: Estimated Average Glucose 128 mg/dL; Glycohemoglobin A1C 6.1 % (4.5-6.2)
== END 2023-11-15 09:19 | disposition home or self-care (01) ==
LOC: LAB 09:19
PROVIDERS: PCP Internal Medicine; Visit Provider Internal Medicine
DX: R73.01 Impaired fasting glucose (principal)
CPT/HCPCS: 36415; 83036

== ENCOUNTER 2024-05-17 11:51 | Outpatient (OUT) | payer MEDICARE, OTHER, SELFPAY ==
--- OUTSIDE RECORDS SUMMARY | 2024-05-17 12:05 | XMS_ITS | CCD ---
Author Organization [facility] Care Team Providers Care 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 Name Role Phone ERIK HOLM Primary Care Physician [phone] Erik Holm DO Primary Care Provider MD Mann Ribeiro Attending Provider [phone] DO Erik Holm Primary Care Provider MIHAI, DR VALENCIA Admitting Unavailable BALL, DR VALENCIA Attending Unavailable BALL, DR VALENCIA Consulting Unavailable BALL, DR VALENCIA Primary Care Unavailable LISETTE, DR KARLIE Lord Consulting Unavailable BALL, DR VALENCIA Primary Care Unavailable BALL, DR VALENCIA Admitting Unavailable BALL, DR VALENCIA Attending Unavailable BALL, DR VALENCIA Consulting Unavailable WEST, DR KARLIE Lord Consulting Unavailable RIBEIRO, DR PACHECO Attending Unavailable BALL, DR VALENCIA Primary Care Unavailable RIBEIRO, DR PACHECO Consulting Unavailable RIBEIRO, DR PACHECO Admitting Unavailable RIBEIRO, DR PACHECO Attending Unavailable BALL, DR VALENCIA Primary Care Unavailable RIBEIRO, DR PACHECO Consulting Unavailable RIBEIRO, DR PACHECO Admitting Unavailable TREVINO, MARANDA Consulting Unavailable RIBEIRO, DR PACHECO Admitting Unavailable RIBEIRO, DR PACHECO Attending Unavailable BALL, DR VALENCIA Primary Care Unavailable RIBEIRO, DR PACHECO Consulting Unavailable CINTIA, RACHEL Consulting Unavailable GEMBUS, KAUSHAL Consulting Unavailable BALL, DR VALENCIA Admitting Unavailable BALL, DR VALENCIA Attending Unavailable BALL, DR VALENCIA Consulting Unavailable BALL, DR VALENCIA Primary Care Unavailable Mihai, Erik Unavailable Mann RIBEIRO Attending Unavailable SUSANNA, Mann Wei Attending Unavailable Allergies Allergy Classification Reported Allergen(s) Allergy Type Date of Onset Reaction(s) Facility (1 source) No Known Medication Allergies; Translations: [No Known Medication Allergies] Propensity to adverse reactions (disorder) [facility] Repository Medications Current Medications Medication Drug Class(es) Dates Sig (Normalized) Sig (Original) acetaminophen 325 mg / HYDROcodone bitartrate 7.5 mg oral tablet (1 source) Opioid Agonist Start: 08-05-2022 take 1 tablet by mouth once, then take 1 tablet by mouth every hour [place] 325 mg-7.5 mg oral tablet 1 tab(s), Oral, Once, 1 tab(s), Refill(s) 0, Take 1 hour prior to procedure. Don't drive or operate machinery while taking., [facility]/pharmacy #[id number], 162, cm, 06/06/22 9:08:00 EDT, Height/Length Dosing, 59.5, kg, 06/06/22 9:08:00 EDT, Weight Dosing Start Date: 08/05/22 Status: Ordered amLODIPine 10 mg / benazepril hydrochloride 40 mg oral capsule (17 sources) Dihydropyridine Calcium Channel Ramon, Angiotensin Converting Enzyme Inhibitor Start: 05-17-2024 take 1 capsule by mouth once daily Amlodipine-Benaz epril Active 1 CAP PO Daily 90 90 May 17, 2024 12:00am Start: 05-17-2024 End: 05-17-2024 take 1 capsule by mouth once daily Amlodipine-Benazepril Discontinued 1 CAP PO Daily May 17, 2024 12:00am May 17, 2024 11:40am Start: 08-26-2019 amLODIPine-sergio azepril (LOTREL) 5-20 mg per capsule Take by mouth. 0 08/26/2019 Active Start: 08-26-2019 take 1 capsule by mo [facility] once daily amLODIPine-benazepril 5 mg-20 mg Cap cap(s), Oral, Daily, Refill(s) 0 Start Date: 08/26/19 Status: [facility] amLODIPine Besy-Benazepril HCl 10-20 MG TAKE 1 CAPSULE BY MOUTH EVERY DAY Orally qd for 90 days Active Comment on above: Take by mouth. aspirin 81 mg delayed release oral tablet (16 sources) Platelet Aggregation Inhibitor, Nonsteroidal Anti-inflammatory Drug Start: 05-17-2024 take 1 tablet by mouth once daily Aspirin Active 1 TAB PO Daily May 17, 2024 12:00am FreeTextSi tablet Orally Once a day; Note: Source Status: Taking; Provider: Mihai Valencia ( ) Start: 08-26-2019 take 1 mg by mouth once daily aspirin 81 mg oral tablet mg tab(s), Oral, Daily, Refills(s) 0 Start Date: 08/26/19 Status: Ordered take 1 tablet by bolivar th every twenty-four hours Aspirin 81 MG 1 tablet Orally Once a day Active Comment on above: Take 81 mg by mouth once daily. atorvastatin 40 mg oral tablet (16 sources) HMG-CoA Reductase Inhibitor Start: take 40 mg by mouth once daily at bedtime Atorvastatin Active 40 MG PO Daily at bedtime May 17, 2024 12:00am Start: 05-13-2021 atorvastatin 4 0 mg Tab Refills(s) 0 Start Date: 06/04/21 Status: Ordered Comment on above: Take 40 mg by mouth daily at bedtime. benoxinate hydrochloride 4 mg/ml / fluorescein sodium 2.5 mg/ml ophthalmic solution (1 source) Diagnostic Dye Start: 2021 End: 2021 fluorescein-benoxinate 0.25-0.4 % 1 Drop (FLURESS) hydroCHLOROthiazide 25 mg oral tablet (16 sources) Thiazide Diuretic Start: 2023 take 1 tablet by mouth once daily Hydrochlorothiazide Active 1 TAB PO Daily May 17, 2024 12:00am FreeTextSig: TAKE 1 TABLET BY MOUTH EVERY DAY; Note: Source Status: Taking; Provider: Mihai Valencia ( ) Start: 08-26-2019 take 1 mg by mouth o nce daily hydrochlorothiazide 25 mg Tab mg tab(s), Oral, Daily, Refills(s) 0 Start Date: 08/26/19 Status: Ordered Comment on above: Take 25 mg by mouth once daily. phenylephrine hydrochloride 25 mg/ml ophthalmic solution (1 source) alpha-1 Adrenergic Agonist Start: End: PHENYLephrine 2.5 % 1 Drop (AK-DILATE, KALIE-SYNEPHRINE) pravastatin sodium 80 mg oral tablet (5 sources) HMG-CoA Reductase Inhibitor Start: take 1 mg by mouth once daily pravastatin 80 mg Tab mg tab(s), Oral, Daily, Refills(s) 0 Start Date: 08/26/19 Status: Ordered Comment on above: Take by mouth. tadalafil 20 mg oral tablet (16 sources) Phosphodiesterase 5 Inhibitor Start: 024 take 1 tablet by mouth once daily as needed Tadalafil Active 1 TAB PO Daily May 17, 2024 12:00am FreeTextSi tablet as needed Orally Once a day; Note: Source Status: Taking; Provider: Mihai Valencia ( ) Start: 09-11-2023 take 1 tablet by bolivar th every twenty-four hours tadalafil 20 mg Tab 20 mg = 1 tab(s), Oral, As Directed, Take 1 tab 1 hr prior to sexual activity as needed. Don't exceed 1 tab in a 24 hr period., # 30 tab(s), Refills(s) 11, Pharmacy: [facility] [id number], 162, cm, 09/11/23 8:42:00 EDT, Height/Length Dosing, [...] period., # 30 tab(s), Refills(s) 3, Pharmacy: [facility] [id number], 162, cm, 06/06/22 9:08:00 EDT, Height/Length Dosing, 59.5,... Start Date: 08/12/22 Status: Ordered Start: 03-09-2020 tadalafil 20 m g Tab 20 mg = 1 tab(s), Oral, As Directed, Take 1 tab 30min. prior to sexual activity, # 30 tab(s), Refills(s) 3, Pharmacy: [facility] [id number], 162, cm, 06/04/21 8:16:00 EDT, Height/Length Dosing, 59.5, kg, 06/04/21 8:16:00 EDT, Weight Dosing Start Date: 04/08/22 Status: Ordered take 1 tablet by bolivar th every twenty-four hours Cialis 20 MG 1 tablet as needed Orally Once a day Active Comment on above: Take 20 mg by mouth. tropicamide 10 mg/ml ophthalmic solution (1 source) Anticholinergic Start: 06-16-2022 End: 06-17-2022 tropicamide 1 % 1 Drop (MYDRIACYL) Completed/Discontinued Medications Medication Drug Class(es) Dates Sig (Normalized) Sig (Original) amLODIPine 5 mg oral tablet (3 sources) Dihydropyridine Calcium Channel Ramon Start: 05-17-2024 End: 05-17-2024 take 5 mg by mouth once daily Amlodipine Discontinued 5 MG PO Daily May 17, 2024 12:00am May 17, 2024 11:07am Start: 12-14-2023 take 1 tablet by bolivar th every twenty-four hours amLODIPine Besylate 5 MG 1 tablet Orally Once a day for 30 days Nov, Active ketorolac tromethamine 5 mg/ml ophthalmic solution (2 [...] OPERATIVE EYE, BEGINNING ONE DAY AFTER SURGERY Problems Problem Classification Problem Date Documented Date Episodic/Chronic Asthma (1 source) Unspecified asthma, uncomplicated; Translations: [UNSPECIFIED ASTHMA UNCOMPLICATED] Onset: 08-31-2022 Chronic Cataract (2 sources) After-cataract of bilateral eyes; Translations: [Other secondary cataract, bilateral] Chronic Diabetes mellitus without complication (20 sources) Impaired fasting glycemia; Translations: [Impaired fasting glucose] Onset: 05-16-2022 08-26-2019 Episodic Disorders of lipid metabolism (20 sources) Hyperlipidemia; Translations: [Hyperlipidemia, unspecified] Onset: 07-08-2021 08-26-2019 Chronic Essential hypertension (20 sources) Hypertensive disorder; Translations: [Essential (primary) hypertension] Onset: 07-08-2021 08-26-2019 Chronic Genitourinary symptoms and ill-defined conditions (20 sources) Nocturia; Translations: [Nocturia] Onset: 06-06-2022 Episodic Glaucoma (16 sources) Glaucoma; Translations: [Preglaucoma, unspecified, bilateral] Onset: 08-31-2022 08-26-2019 Chronic Hyperplasia of prostate (20 sources) Benign prostatic hypertrophy with outflow obstruction; Translations: [Benign prostatic hyperplasia with lower urinary tract symptoms] Onset: 05-13-2022 Chronic Neoplasms of unspecified nature or uncertain behavior (4 sources) Neoplasm of uncertain behavior of prostate 10-11-2019 Episodic Occlusion or stenosis of precerebral arteries (20 sources) Occlusion and stenosis of left carotid artery; Translations: [Left carotid artery stenosis] Onset: 09-15-2022 Chronic Other aftercare (1 source) ferry terminal agent (current) use of anticoagulants; Translations: [AGENT LICENSING CLERK CURRNT USE ANTICOAGULANTS] Onset: 08-31-2022 Episodic Other aftercare (2 sources) Other senior living (current) drug therapy; Translations: [OTH AGENT LICENSING CLERK CURRENT DRUG THERAPY] Onset: 05-16-2022 Episodic Other circulatory disease (8 sources) Cardiovascular symptoms; Translations: [Other specified symptoms [...] conditions (not mental disorders or infectious disease) (20 sources) Raised prostate specific antigen; Translations: [Elevated [...] Results Test Name Value Interpretation Reference Range Facility Ambulatory Visit Summaryon 1 Ambulatory Visit Summary BALJINDER BRUNNER :1950 Visit Date:09/11/2023 Ambulatory Visit Instructions Your Diagnosis Elevated PSA BPH with urinary obstruction Atypical small acinar proliferation of prostate Impotence Nocturia Tests Performed Urnls Dip Stick Auto w/o Microscopy POC [id number] Your Care Team Attending Physician - SUSANNA NOVOA, Mann Wei Primary Care Physician - ERIK HOLM DO [...] Mann RIBEIRO MD Where: [facility] [place] Normal [facility] Patient Educationon 09-11-20 Patient Education Urology Benign Prostatic Hyperplasia Benign [...] Follow these instructions at home: ? Take [id number] and prescription medicines only as told by [...] medicine (more content not included)... Normal [facility] Urology Office/Clinic Noteon 09-11-2023 Urology Office/Clinic Note [...] fluid intake. Follow-up With When Contact Information SUSANNA NOVOA, GETACHEW Pro In 1 year [facility] [address], [place] [address]- Additional Instructions: w/PSA Patient Education Benign Prostatic [...] Former smoker (more content not included)... Normal [facility] Comment on above: Result Comment: Elec tronically Signed By: SUSANNA NOVOA, Mann Wei\.br\Date and Time Signed: 09/11/23 09:20 EDT\.br\Electronically Co-Signed By: Sandra Ragsdale\.br\Date and Time Co-Signed: 09/11/23 09:18 EDT Lab Reportson 08-25-2023 Lab Reports [id number] D:[address] [facility] US CAROTID ART BILon 022 US CAROTID [...] by: KARLIE KNOX Date: 2022-09-15 17:15 Normal [facility] CBC AUTO DIFFon 08-22-2022 BASO # 0.1 103/ul Normal 0.0-0.1 [facility] Comment on above: Performed By: #### C BC #### [facility] [address] [place] [address] Dr. Phil Acuña Basophils/100 WBC (Bld) 0.9 % Normal 0.2-2.0 [facility] Comment on above: Performed By: #### C BC #### [facility] [address] [place] [address] Dr. Phil Acuña EO # 0.0 103/ul Normal 0.0-0.7 [facility] Comment on above: Performed By: #### C BC #### [facility] [address] [place] [address] Dr. Phil Acuña Eosinophils/100 WBC (Bld) 0.5 % Critically low 0.9-7.0 [facility] Comment on above: Performed By: #### C BC #### [facility] [address] [place] [address] Dr. Phil Acuña Erythrocyte distribution width (RBC) [Ratio] 12.6 % Normal 11.0-15.0 [facility] Comment on above: Performed By: #### C BC #### [facility] [address] [place] [address] Dr. Phil Acuña Hematocrit (Bld) [Volume fraction] 42.9 % Normal 42.0-54.0 [facility] Comment on above: Performed By: #### C BC #### [facility] [address] [place] [address] Dr. Phil Acuña Hemoglobin (Bld) [Mass/Vol] 14.5 g/dL Normal 14.0-18.0 [facility] Comment on above: Performed By: #### C BC #### [facility] [address] [place] [address] Dr. Phil Acuña IG # 0.04 10e3/ul Critically high 0.00-0.03 [facility] Comment on above: Performed By: #### C BC #### [facility] [address] [place] [address] Dr. Phil Acuña IG % 0.5 % Normal 0.0-0.5 [facility] Comment on above: Performed By: #### C BC #### [facility] [address] [place] [address] Dr. Phil Acuña LYMPH # 1.1 103/ul Critically low 1.2-3.8 [facility] Comment on above: Performed By: #### C BC #### [facility] [address] [place] [address] Dr. Phil Acuña Lymphocytes/100 WBC (Bld) 14.2 % Critically low 20.5-60.0 [facility] Comment on above: Performed By: #### C BC #### [facility] [address] [place] [address] Dr. Phil Acuña MANUAL DIFF REQ NO Normal [facility] Comment on above: Performed By: #### C BC #### [facility] [address] [place] [address] Dr. Phil Acuña MCH (RBC) [Entitic mass] 31.6 pg Normal 25.9-34.0 [facility] Comment on above: Performed By: #### C BC #### [facility] [address] [place] [address] Dr. Phil Acuña MCHC (RBC) [Mass/Vol] 33.8 g/dL Normal 29.9-35.2 [facility] Comment on above: Performed By: #### C BC #### [facility] [address] [place] [address] Dr. Phil Acuña MCV (RBC) [Entitic vol] 93.5 fL Normal 80.0-94.0 [facility] Comment on above: Performed By: #### C BC #### [facility] [address] [place] [address] Dr. Phil Acuña MONO # 0.7 103/ul Normal 0.3-0.8 [facility] Comment on above: Performed By: #### C BC #### [facility] [address] [place] [address] Dr. Phil Acuña Monocytes/100 WBC (Bld) 10.0 % Normal 1.7-12.0 [facility] Comment on above: Performed By: #### C BC #### [facility] [address] [place] [address] Dr. Phil Acuña NEUT # 5.4 103/ul Normal 1.4-6.5 [facility] Comment on above: Performed By: #### C BC #### [facility] [address] [place] [address] Dr. Phil Acuña Neutrophils/100 WBC (Bld) 73.9 % Normal 43.0-75.0 [facility] Comment on above: Performed By: #### C BC #### [facility] [address] [place] [address] Dr. Phil Acuña Platelet mean volume (Bld) [Entitic vol] 10.1 fL Normal 9.5-13.5 [facility] Comment on above: Performed By: #### C BC #### [facility] [address] [place] [address] Dr. Phil Acuña PLT 220 103/ul Normal 150-450 [facility] Comment on above: Performed By: #### C BC #### [facility] [address] [place] [address] Dr. Phil Acuña RBC 4.59 106/ul Critically low 4.70-6.10 [facility] Comment on above: Performed By: #### C BC #### [facility] [address] [place] [address] Dr. Phil Acuña WBC 7.4 103/ul Normal 4.0-11.0 [facility] Comment on above: Performed By: #### C BC #### [facility] [address] [place] [address] [address] Phil Acuña Covid-19 PCR ([facility])on 07-29 SARS-CoV-2 (COVID-19) RNA JOE+probe Ql (Unsp spec) Not detected Normal NOT DETECTED [facility] Comment on above: Result Comment: This test is not yet approved or cleared by the [place] FDA. When there are no FDA-approved or cleared tests available, and other criteria are met, FDA can make tests available under an emergency access mechanism called an Emergency Use Authorization (EUA). The EUA for this test is supported by the [place] of Health and Human Service's (HHS's) declaration [...] consistent with SARS-CoV-2. Performed By: #### C VDTB #### [facility] [address] [place] [address] Dr. Phil Acuña PROF CHEM 8 (BAS METB)on Anion gap [Moles/Vol] 11.0 mmol/L Normal [facility] Comment on above: Performed By: #### B MP #### [facility] [address] [place] [address] [address] [address] Phil Acuña Calcium [Mass/Vol] 9.2 mg/dL Normal 8.5-10.1 [facility] Comment on above: Performed By: #### B MP #### [facility] [address] [place] [address] [address] [address] Phil Acuña Chloride [Moles/Vol] 102 mmol/L Normal 98-107 [facility] Comment on above: Performed By: #### B MP #### [facility] [address] [address] [address] Phil Acuña CO2 [Moles/Vol] 30.1 mmol/L Normal 21.0-32.0 [facility] Comment on above: Performed By: #### B MP #### [facility] [address] [address] [address] Phil Acuña Creatinine [Mass/Vol] 1.01 mg/dL Normal 0.70-1.30 [facility] Comment on above: Performed By: #### B MP #### [facility] [address] [address] [address] Phil Acuña EGFR-AF TAJIK >60 Normal >=60 [facility] Comment on above: Performed By: #### B MP #### [facility] [address] [place] [address] Dr. Phil Acuña EGFR-NON AF TAJIK >60 Normal >=60 [facility] Comment on above: Performed By: #### B MP #### [facility] [address] [place] [address] Dr. Phil Acuña Glucose [Mass/Vol] 121 mg/dL Critically high 74-106 [facility] Comment on above: Performed By: #### B MP #### [facility] [address] [place] [address] Dr. Phil Acuña Potassium [Moles/Vol] 4.1 mmol/L Normal 3.5-5.1 [facility] Comment on above: Performed By: #### B MP #### [facility] [address] [address] [address] Phil Acuña Sodium [Moles/Vol] 139 mmol/L Normal 136-145 [facility] Comment on above: Performed By: #### B MP #### [facility] [address] [address] [address] Phil Acuña Urea nitrogen [Mass/Vol] 20.0 mg/dL Critically high 7.0-18.0 [facility] Comment on above: Performed By: #### B MP #### [facility] [address] [place] [address] Dr. Phil Acuña Urea nitrogen/Creatinine [Mass ratio] 19.8 mg/mg Normal [facility] Comment on above: Performed By: #### B MP #### [facility] [address] [place] [address] Dr. Phil Acuña PROTIMEon 08-22-2022 INR Coag (PPP) [Relative time] 0.99 {INR} Normal [facility] Comment on above: Performed By: #### P TT, PT #### [facility] [address] [place] [address] Dr. Phil Acuña INR GUIDELINES SEE BELOW Normal [facility] Comment on above: Result Comment: GERRY RED INR: 2.0 - 3.0 CONDITIONS NOT LISTED BELOW 2.5 - 3.5 FOR PROSTHETIC HEART VALVE REPLACEMENT 2.5 - 3.5 RECURRENT THROMBOSIS Performed By: #### P TT, PT #### [facility] [address] [place] [address] Dr. Phil Acuña PT Coag (PPP) [Time] 10.7 s Normal 9.0-11.6 [facility] Comment on above: Performed By: #### P TT, PT #### [facility] [address] [place] [address] Dr. Phil Acuña PTTon 08-22-2022 aPTT Coag (Bld) [Time] 26.8 s Normal 22.3-36.2 [facility] Comment on above: Performed By: #### P TT, PT #### [facility] [address] [place] [address] Dr. Phil Acuña Creatinine (Bld) [Mass/Vol]O rdered By: Mann Ribeiro on 07-18-2022 Creatinine [Mass/Vol] 1.0 mg/dL 0.6-1.3 [facility] Comment on above: ER/ESD physician is notified/shown all ISTAT results. Critical values may be confirmed by laboratory testing if deemed necessary by ER attending doctor. ISTAT XRay CREon 07-18-2022 Creatinine [Mass/Vol] 1.0 mg/dL Normal 0.6-1.3 [facility] Comment on above: Result Comment: ER/E SD physician is notified/shown all ISTAT results. Critical values may be confirmed by laboratory testing if deemed necessary by ER attending doctor. Performed By: #### I SCRE #### [address] Point of Care testing , ISTAT GFR ( > 60 Normal [facility] Comment on above: Result Comment: GFR estimated reference range: According to KDOQI guidelines, <60 ml/min/1.73m2 is sufficient to diagnose a patient with chronic kidney disease. PERFORMED BY: [place] [address] PATHOLOGIST CRYPTOLOGIST FRANC SALINAS M.D. Performed By: #### I SCRE #### [address] Point of Care testing , ISTAT GFR (Non- Am > 60 Normal [facility] Comment on above: Performed By: #### I SCRE #### [address] Point of Care testing , MR prostate wo/w conon 07-18 MR prostate wo/w con [facility] [place] [address] MRI Report Signed Patient: Baljinder Brunner MR#: [id number] 5 : 1950 Acct:[id number] Age/Sex: 71 / M ADM Date: 07/18/22 Loc: Room: Type: [facility] Attending Dr: Mann Ribeiro MD Copies to: [...] Jimenez Jr., D.O.07/18/2022 4:10 PM Dictation Location: [place] [address] Transcribed By: [facility] 07/18/22 1610 Dictated By: Ryan Jimenez Jr, DO 07/18/22 1602 Signed By: 07/18/22 1610 Normal [facility] No Panel InformationOrdered By: Mann Ribeiro on 07-18-2022 POC Estimated GFR > 60 [facility] Comment on above: GFR estimated refere nce range: According to KDOQI guidelines, <60 ml/min/1.73m2 is sufficient to diagnose a patient with chronic kidney disease. POC Estimated GFR Non- Amer > 60 [facility] US CAROTID ART BILon 022 [place] CAROTID [...] 2.5-4.0 >70 >225 >4.0 Electronically authenticated by: AKRLIE KNOX Date: 2022-05-17 16:13 Normal [facility] CBC AUTO DIFFon 05-13-2022 BASO # 0.1 103/ul Normal 0.0-0.1 [facility] Comment on above: Performed By: #### C BC #### [facility] Laboratory [address] [place] [address] Dr. Phil Acuña Basophils/100 WBC (Bld) 1.3 % Normal 0.2-2.0 [facility] Comment on above: Performed By: #### C BC #### [facility] Laboratory [address] [place] [address] Dr. Phil Acuña EO # 0.2 103/ul Normal 0.0-0.7 [facility] Comment on above: Performed By: #### C BC #### [facility] [address] [place] [address] Dr. Phil Acuña Eosinophils/100 WBC (Bld) 2.9 % Normal 0.9-7.0 [facility] Comment on above: Performed By: #### C BC #### [facility] [address] [place] [address] Dr. Phil Acuña Erythrocyte distribution width (RBC) [Ratio] 12.6 % Normal 11.0-15.0 [facility] Comment on above: Performed By: #### C BC #### [facility] [address] [place] [address] Dr. Phil Acuña Hematocrit (Bld) [Volume fraction] 44.6 % Normal 42.0-54.0 [facility] Comment on above: Performed By: #### C BC #### [facility] [address] [place] [address] Dr. Phil Acuña Hemoglobin (Bld) [Mass/Vol] 15.0 g/dL Normal 14.0-18.0 [facility] Comment on above: Performed By: #### C BC #### [facility] [address] [place] [address] Dr. Phil Acuña IG # 0.01 10e3/ul Normal 0.00-0.03 [facility] Comment on above: Performed By: #### C BC #### [facility] [address] [place] [address] Dr. Phil Acuña IG % 0.2 % Normal 0.0-0.5 [facility] Comment on above: Performed By: #### C BC #### [facility] [address] [place] [address] Dr. Phil Acuña LYMPH # 1.1 103/ul Critically low 1.2-3.8 [facility] Comment on above: Performed By: #### C BC #### [facility] [address] [place] [address] Dr. Phil Acuña Lymphocytes/100 WBC (Bld) 20.8 % Normal 20.5-60.0 [facility] Comment on above: Performed By: #### C BC #### [facility] [address] [place] [address] Dr. Phil Acuña MANUAL DIFF REQ NO Normal [facility] Comment on above: Performed By: #### C BC #### [facility] [address] [place] [address] Dr. Phil Acuña MCH (RBC) [Entitic mass] 31.5 pg Normal 25.9-34.0 [facility] Comment on above: Performed By: #### C BC #### [facility] [address] [place] [address] Dr. Phil Acuña MCHC (RBC) [Mass/Vol] 33.6 g/dL Normal 29.9-35.2 [facility] Comment on above: Performed By: #### C BC #### [facility] [address] [address] [address] Phil Acuña MCV (RBC) [Entitic vol] 93.7 fL Normal 80.0-94.0 [facility] Comment on above: Performed By: #### C BC #### [facility] [address] [address] [address] Phil Acuña MONO # 0.6 103/ul Normal 0.3-0.8 [facility] Comment on above: Performed By: #### C BC #### [facility] [address] [address] [address] Phil Acuña Monocytes/100 WBC (Bld) 11.4 % Normal 1.7-12.0 [facility] Comment on above: Performed By: #### C BC #### [facility] [address] [place] [address] Dr. Phil Acuña NEUT # 3.3 103/ul Normal 1.4-6.5 [facility] Comment on above: Performed By: #### C BC #### [facility] [address] [place] [address] Dr. Phil Acuña Neutrophils/100 WBC (Bld) 63.4 % Normal 43.0-75.0 [facility] Comment on above: Performed By: #### C BC #### [facility] [address] [place] [address] Dr. Phil Acuña Platelet mean volume (Bld) [Entitic vol] 9.7 fL Normal 9.5-13.5 [facility] Comment on above: Performed By: #### C BC #### [facility] [address] [place] [address] Dr. Phil Acuña PLT 212 103/ul Normal 150-450 [facility] Comment on above: Performed By: #### C BC #### [facility] [address] [place] [address] Dr. Phil Acuña RBC 4.76 106/ul Normal 4.70-6.10 [facility] Comment on above: Performed By: #### C BC #### [facility] [address] [place], [place] [id number] Dr. Phil Acuña WBC 5.2 103/ul Normal 4.0-11.0 [facility] Comment on above: Performed By: #### C BC #### [facility] [address] [address] [address] Phil Acuña GLYCOHEMOGLOBIN A1Con 2021 ADA RECOMMENDATION SEE BELOW Normal [facility] Comment on above: Result Comment: ADA RECOMMENDED LIMIT 4.0 - 6.0 ADA THERAPEUTIC TARGET < 7.0 ACTION SUGGESTED > 7.0 Performed By: #### A 1C #### [facility] [address] [address] [address] Phil Acuña Glucose [Mass/Vol] 123 mg/dL Normal [facility] Comment on above: Performed By: #### A 1C #### [facility] [address] [address] [address] Phil Acuña HbA1c (Bld) [Mass fraction] 5.9 % Normal 4.5-6.2 [facility] Comment on above: Performed By: #### A 1C #### [facility] [address] [address] [address] Phil Acuña LIPID PROFILEon 05-13-2022 CHOL-HDL RATIO NORM SEE BELOW Normal [facility] Comment on above: Result Comment: 3.3 - 4.4 LOW RISK 4.4 - 7.1 AVERAGE RISK 7.1 - 11.0 MODERATE RISK >11.0 HIGH RISK Performed By: #### L IPID BMP, ALT ####[facility] [address] [id number] Acuña Cholesterol [Mass/Vol] 199 mg/dL Normal <=200 [facility] Comment on above: Performed By: #### L IPID, BMP, ALT ####[facility] [id number] [id number] Acuña Cholesterol in HDL [Mass/Vol] 84 mg/dL Critically high 40-60 [facility] Comment on above: Performed By: #### L IPID, BMP, ALT ####[facility] [address] [id number]. Phil Acuña Cholesterol in LDL [Mass/Vol] 97.0 mg/dL Normal [facility] Comment on above: Performed By: #### L YAW ACUÑA, ALT ####[facility] [address] [address]Dr. Phil Acuña Cholesterol.total/Chol esterol in HDL [Mass ratio] 2.4 {ratio} Normal [facility] Comment on above: Performed By: #### L ARIANNE BMP, ALT ####[facility] [address] [address]Dr. Phil Acuña HDL NORMAL > or = 60 mg/dl - LO W CARDIOVASCULAR RISK <40 mg/dl - HIGH CARDIOVASCULAR RISK Normal [facility] Comment on above: Performed By: #### L YAW ACUÑA, ALT ####[facility] [id number] [address]Dr. Phil Acuña LDL CALC NORMAL SEE BELOW Normal [facility] Comment on above: Result Comment: <100 mg/dl OPTIMAL 100 - 129 mg/dl NEAR OR ABOVE OPTIMAL 130 - 159 mg/dl BORDERLINE HIGH 160 - 189 mg/dl HIGH >190 mg/dl VERY HIGH Performed By: #### L YAW ACUÑA, ALT ####[facility] [address] [address]Dr. Phil Acuña Triglyceride [Mass/Vol] 90 mg/dL Normal <=150 [facility] Comment on above: Performed By: #### L ARIANNE BMP, ALT ####[facility] [address] [address]Dr. Phil Acuña VLDL CALC 18.0 mg/dL Normal [facility] Comment on above: Performed By: #### L ARIANNE BMP, ALT ####[facility] [address] [address]Dr. Phil Acuña PROF CHEM 8 (BAS METB)on Anion gap [Moles/Vol] 14.4 mmol/L Normal [facility] Comment on above: Performed By: #### L ARIANNE BMP, ALT #### [facility] [address] [address] [address] Phil Acuña Calcium [Mass/Vol] 9.5 mg/dL Normal 8.5-10.1 [facility] Comment on above: Performed By: #### L IPID, BMP, ALT #### [facility] [address] [place] [address] Dr. Phil Acuña Chloride [Moles/Vol] 101 mmol/L Normal 98-107 [facility] Comment on above: Performed By: #### L IPID, BMP, ALT #### [facility] [address] [place] [address] Dr. Phil Acuña CO2 [Moles/Vol] 29.9 mmol/L Normal 21.0-32.0 [facility] Comment on above: Performed By: #### L IPID, BMP, ALT #### [facility] [address] [place] [address] Dr. Phil Acuña Creatinine [Mass/Vol] 0.89 mg/dL Normal 0.70-1.30 [facility] Comment on above: Performed By: #### L IPID, BMP, ALT #### [facility] [address] [place] [address] Dr. Phil Acuña EGFR-AF TAJIK >60 Normal >=60 [facility] Comment on above: Performed By: #### L IPID, BMP, ALT #### [facility] [address] [place] [address] Dr. Phil Acuña EGFR-NON AF TAJIK >60 Normal >=60 [facility] Comment on above: Performed By: #### L IPID, BMP, ALT #### [facility] [address] [place] [address] Dr. Phil Acuña Glucose [Mass/Vol] 118 mg/dL Critically high 74-106 [facility] Comment on above: Performed By: #### L IPID, BMP, ALT #### [facility] [address] [place] [address] Dr. Phil Acuña Potassium [Moles/Vol] 4.3 mmol/L Normal 3.5-5.1 [facility] Comment on above: Performed By: #### L IPID, BMP, ALT #### [facility] [address] [place], [place] [address] Dr. Phil Acuña Sodium [Moles/Vol] 141 mmol/L Normal 136-145 [facility] Comment on above: Performed By: #### L IPID, BMP, ALT #### [facility] [address] [place], [place] [address] Dr. Phil Acuña Urea nitrogen [Mass/Vol] 23.0 mg/dL Critically high 7.0-18.0 [facility] Comment on above: Performed By: #### L IPID, BMP, ALT #### [facility] [address] [place], [place] [address] Dr. Phil Acuña Urea nitrogen/Creatinine [Mass ratio] 25.8 mg/mg Normal [facility] Comment on above: Performed By: #### L IPID, BMP, ALT #### [facility] [address] [place], [place] [address] Dr. Phil Acuña [facility] 05-13-2022 ALT [Catalytic activity/Vol] 31 U/L Normal 16-63 [facility] Comment on above: Performed By: #### L IPID, BMP, ALT ####[facility] [address] [place], [place] [address]GuDr. Phil Acuña community outreach viviana hall 09-02-2021 community outreach carotid [facility] [place] [address] Ultrasound Report Signed Patient: Baljinder Brunner MR#: [id number] 5 : 1950 Acct:[id number] Age/Sex: 70 / M ADM Date: 08/28/21 Loc: Room: Type: DEP REF Attending Dr: Ross Montague Ordering Provider: ROSS MONTAGUE Date of Service: 08/28/21 / community outreach carotid: SCREENING Copies to: [facility] CAROTID DUPLEX INDICATION: Community outreach screening program PROCEDURE: Color-flow duplex scanning [...] the common carotid artery is 1.3 . / community outreach carotid IMPRESSION: MILD TO MODERATE PLAQUE FORMATION IS NOTED BILATERAL EXTRACRANIAL CAROTID ARTERIES. MODERATE STENOSIS OF 50-69% WAS FOUND IN THE LEFT INTERNAL CAROTID ARTERY. No stenoses was identified in the right side. Impression dictated by: Jose Steinberg MD09/02/2021 8:00 AM Dictation Location: [address] [address] Tech: [facility] Transcribed By: VISHAL 09/02/21799 Dictated By: Jose Steinberg MD 09/02/21 0759 Signed By: 09/02/21799 [facility] ANES POSTPROC EVALon 021 ANES POSTPROC EVAL HNO ID: [id number] Author: Brent Balbuena MD Service: Anesthesiology Author Type: Anesthesiologist Type: Anesthesia Postprocedure Evaluation Filed: 07/28/2021 10:28 AM Note Text: POST ANESTHESIA EVALUATION NOTE : 1950 Procedure Summary Date: 07/28/21 Room / Location: [place] [address] / [facility] Anesthesia Start: 954 Anesthesia Stop: 1017 Procedures: [...] July 28, 2021 TIME: 10:27 AM CSN: [id number] Normal [facility] ANES PRE-OPon 07-28-2021 ANES PRE-OP HNO ID: [id number] Author: Brent Balbuena MD Service: Anesthesiology Author Type: Anesthesiologist Type: Anesthesia Preprocedure Evaluation Filed: 07/28/2021 9:26 AM Note Text: ANESTHESIOLOGY DAY OF SURGERY NOTE : 1950 Procedure(s) (LRB): PHACOEMULSIFICATION CATARACT IMPLANT INTRAOCULAR LENS W/O ENDOSCOPIC CYCLOPHOTOCOAGULATION (Left) OPHTHALMIC BIOMETRY BY PARTIAL COHERENCE INTERFEROMETRY W/INTRAOCULAR LENS POWER CALCULATION (Left) Surgeon(s): Brianna Bender V, MD Estimated body mass index is 23 kg/m? as calculated from the following: Height as of this encounter: 162.6 cm (5' 4 ). Weight as of this encounter: 60.8 kg (134 lb). Most recent hematocrit and potassium results: No results found for this basename: HCT,HEMATOCRIT,K,POTASS IUM Relevant Problems CARDIO (+) HTN (hypertension) I [...] none. Vitals Value Taken Time BP 187/81 07/28/21 0900 Pulse 57 07/28/21 09 Resp 16 07/28/21 09 Temp 35.9 ?C (96.6 ?F) 07/28/21 09 SpO2 99 % 07/28/21 09 Facility-Administered Medications as of 07/28/2021 Medication Dose Route Frequency - NaCl 0.9% iv infusion 30 mL/hr INTRAVENOUS CONTINUOUS - [START ON 07/29/2021] lidocaine 2 % (XYLOCAINE) OTHER Digital Media Analyst to OR - tetracaine (PF) 0.5 [...] July 28, 2021 TIME: 9:26 AM CSN: [id number] Normal [facility] NURSING PROGon 07-28-2021 NURSING PROG HNO ID: [id number] Author: Meryl Huynh RN Service: ? Author [...] Meryl Huynh RN In Department: AMBULATORY SURGERY [facility] OPERATIVE NOon 07-28-2021 OPERATIVE NO HNO ID: [id number] Author: Brianna Bender V, MD Service: Ophthalmology Author Type: Physician Type: Operative Report Filed: 07/28/2021 10:15 AM Note Text: OPERATIVE REPORT DATE OF SERVICE: July 28, 2021 PRIMARY SURGEONS: Brianna Bender MD SENIOR PRODUCT ENGINEER: None Procedure(s) (LRB): PHACOEMULSIFICATION CATARACT IMPLANT INTRAOCULAR [...] corneal incision was created temporally with a Oktibbeha blade then a 2.4 mm keratome. The anterior chamber was reformed with Viscoat, after which the anterior capsule was opened centrally. Using the Utrata forceps a continuous curvilinear capsulorrhexis of approximately 5.5 mm round was created. Gentle hydrodissection was accomplished using preservative-free lidocaine on a 27-gauge canula. Using the Pancho phacoemulsification unit with the [employer] curved tip, the anterior chamber was entered [...] relinquish care POD #1 Brianna BENDER MD Normal [facility] ANES POSTPROC EVALon 021 ANES POSTPROC EVAL HNO ID: [id number] Author: Leyda Astudillo MD Service: Anesthesiology Author Type: Physician Type: Anesthesia Postprocedure Evaluation Filed: 07/14/2021 2:09 PM Note Text: POST ANESTHESIA EVALUATION NOTE : 1950 Procedure Summary Date: 07/14/21 Room / Location: [address] Anesthesia Start: 1121 Anesthesia Stop: 1140 [...] July 14, 2021 TIME: 2:09 PM CSN: [id number] Normal [facility] ANES PRE-OPon 07-14-2021 ANES PRE-OP HNO ID: [id number] Author: Leyda Astudillo MD Service: Anesthesiology Author [...] results: No results found for this basename: HCT,HEMATOCRIT,K,POTASS IUM Relevant Problems CARDIO (+) HTN (hypertension) Other [...] ON 07/15/2021] lidocaine 2 % (XYLOCAINE) OTHER Digital Media Analyst to OR - [COMPLETED] tetracaine (PF) [...] July 14, 2021 TIME: 11:04 AM CSN: [id number] [facility] OPERATIVE NOon 07-14-2021 OPERATIVE NO HNO ID: [id number] Author: Brianna Bender V, MD Service: Ophthalmology Author Type: Physician Type: Operative Report Filed: 07/14/2021 11:37 AM Note Text: OPERATIVE REPORT DATE OF SERVICE: July 14, 2021 PRIMARY SURGEON: Brianna Bender M.D. SENIOR PRODUCT ENGINEER: None Procedure(s) (LRB): PHACOEMULSIFICATION CATARACT IMPLANT INTRAOCULAR [...] corneal incision was created temporally with a Oktibbeha blade then a 2.4 mm keratome. The [...] Implant Name Type Inv. Item Serial No. 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 LRB Model Num No. Used LENS IOL 0D +23.5 ABE UV ABS - [id number] Intraocular Lens LENS IOL 0D +23.5 ABE UV ABS [id number] [employer] Right [id number] was [...] 11:36 AM - [place] with [facility] Cline[facility] P[facility]1 Brianna BENDER MD [facility] HISTORY PHYSICALon HISTORY PHYSICAL HNO ID: [id number] Author: Delphine Peña PA-C Service: ? Author Type: Physician Coroner'S Juror Type: HANDP Filed: 07/08/2021 10:38 AM Note [...] fevers. Neuro: No history of TIA's, stroke, BRASS MOLDER tumor, impaired sensorium, hemiplegia, paraplegia or quadraplegia. No neurological symptoms or problems. Respiratory: No history of current cough or dyspnea, or pneumonia in the past 6 weeks. No history of respiratory/pulmonary symptoms or problems. Cardiovascular: No history of HTN requiring medication, no history of angina, CHF, [place], cardiac surgery or stents. Denies rest pain, gangrene or revascularization/amput ation for PVD. No history of cardiovascular symptoms [...] or f (more content not included)... Normal [facility] No Panel Information [facility] Vital Signs Date Time Vital Sign Value Performing Clinician Facility 05-17-2024 11:040 Body height 162.56 cm [facility] 05-17-2024 11:040 Body mass index (BMI) [Ratio] 22.8 kg/m2 [facility] 05-17-2024 11:090400 Body weight 60.32 kg [facility] 05-17-2024 11:09-0400 Diastolic blood pressure 80 mm[Hg] [facility] 05-17-2024 11:09-0400 Heart rate 61 /min [facility] 05-17-2024 11:09-0400 Respiratory rate 12 /min [facility] 05-17-2024 11:09-0400 Systolic blood pressure 138 mm[Hg] [facility] 11-15-2023 08:30-0500 Body height 162.56 cm Erik Ball Other [facility] [employer] Other 11-15-2023 08:30-0500 Body mass index (BMI) [Ratio] 22.72 kg/m2 Erik Ball Other [facility] [employer] Other 11-15-2023 08:30-0500 Body weight 60.06 kg Erik Ball Other for; to (do) [facility] [employer] Other 11-15-2023 08:30-0500 Diastolic blood pressure 62 mm[Hg] Erik Ball Other [facility] [employer] Other 11-15-2023 08:30-0500 Respiratory rate 12 /min Erik Ball Other for; to (do) [facility] [employer] Other 11-15-2023 08:30-0500 Systolic blood pressure 164 mm[Hg] Erik Ball Other [facility] [employer] Other 09-11-2023 08:33-0400 Blood Pressure Location Mann RIBEIRO [facility] 09-11-2023 08:33-0400 Diastolic blood pressure 84 mm[Hg] Mann RIBEIRO [facility] 09-11-2023 08:33-0400 Heart rate 66 /min Mann RIBEIRO [facility] 09-11-2023 08:33-0400 Respiratory rate 16 /min Mann RIBEIR[facility] 09-11-2023 08:33-0400 Systolic blood pressure 136 mm[Hg] Mann RIBEIRO [facility] 05-15-2023 09:00-0400 Body height 162.56 cm Erik Ball Other [employer] Other 05-15-2023 09:00-0400 Body mass index (BMI) [Ratio] 22.79 kg/m2 Erik Ball Other [facility] Other 05-15-2023 09:00-0400 Body weight 60.24 kg Erik Ball Other [employer] Other 05-15-2023 09:00-0400 Diastolic blood pressure 70 mm[Hg] Erik Ball Other [facility] Other 05-15-2023 09:00-0400 Respiratory rate 12 /min Erik Ball Other [facility] Other 05-15-2023 09:00-0400 Systolic blood pressure 179 mm[Hg] Erik Ball Other [facility] Other 09-09-2022 09:12-0400 Blood Pressure Location Mann RIBEIRO [facility] 09-09-2022 09:12-0400 Diastolic blood pressure 87 mm[Hg] Mann RIBEIRO [facility] 09-09-2022 09:12-0400 Heart rate 70 /min Mann RIBEIRO [facility] 09-09-2022 09:12-0400 Respiratory rate 16 /min Mann RIBEIRO [facility] 09-09-2022 09:12-0400 Systolic blood pressure 139 mm[Hg] Mann RIBEIRO [facility] 07-18-2022 14:46-0400 Body height 162.56 cm MD Mann Ribeiro Work Phone: [facility] 07-18-2022 14:46-0400 Body weight 59.42 kg MD Mann Ribeiro Work Phone: [facility] 06-06-2022 09:07-0400 Blood Pressure Location Mann RIBEIRO [facility] 06-06-2022 09:07-0400 Diastolic blood pressure 91 mm[Hg] Mann RIBEIRO [facility] 06-06-2022 09:07-0400 Heart rate 68 /min Mann RIBEIRO [facility] 06-06-2022 09:07-0400 Systolic blood pressure 172 mm[Hg] Mann RIBEIRO [facility] Encounters Encounter Date Encounter Type Care Provider Facility Start: 09-16-2024 ambulatory Mann Reedi ty:SORAYA Edmonds Start: 05-17-2024 End: 05-17-2024 ambulatory [facility] Work Phone: Start: 05-17-2024 End: 05-17-2024 Patient encounter procedure [facility] Work Phone: Start: 01-01-2024 End: 01-01-2024 ambulatory Erik Holm Other [employer] Other Start: 01-01-2024 Telephone encounter Erik Holm [facility] Start: 12-14-2023 End: 12-14-2023 ambulatory Erik Holm Other [facility] Other Start: 12-14-2023 Telephone encounter Erik Holm [facility] Start: 11-16-2023 End: 11-16-2023 ambulatory Erik Holm Other [facility] Other Start: 11-16-2023 Telephone encounter Erik Holm [facility] Start: 11-15-2023 End: 11-15-2023 ambulatory Erik Holm Other [facility] Other Start: 11-15-2023 Office outpatient vi sit 25 minutes Erik Holm [facility] Start: 11-01-2023 End: 11-01-2023 ambulatory Erik Holm Other [facility] Other Start: 11-01-2023 Telephone encounter Erik Holm [facility] Start: 10-26-2023 End: 10-26-2023 ambulatory Erik Holm Other [facility] Other Start: 10-26-2023 Telephone encounter Erik Holm [facility] Start: 09-11-2023 End: 09-12-2023 ambulatory Mann RIBEIRO Facility:[facility] Start: 09-11-2023 End: 09-11-2023 Patient encounter procedure Mann RIBEIRO [facility] Start: 05-16-2023 End: 05-16-2023 ambulatory Erik Holm Other Novadiol Other Start: 05-16-2023 Telephone encounter Erik Holm FP [facility] Start: 05-15-2023 End: 05-15-2023 ambulatory Erik Holm Other Novadiol Other Start: 05-15-2023 Encounter by dee dee Holm [facility] Start: 05-15-2023 Patient encounter procedure Erik Holm [facility] Start: 09-15-2022 End: 09-16-[address] ERIK HOLM Facility:[facility]1 Start: 09-09-2022 End: 09-09-2022 Patient encounter procedure Mann RIBEIRO [facility] Start: 08-25-2022 End: 08-25-[address] MANN RIBEIRO Facility:[facility] Start: 08-24-2022 Encounter for preprocedural cardiovascular examination DR MANN RIBEIRO [facility] Start: 08-24-2022 Encounter for preprocedural laboratory examination DR MANN RIBEIRO [facility] Start: 08-22-2022 End: 08-23-[address] MANN RIBEIRO Facility:[facility] Start: 08-22-2022 End: 08-23-2022 Encounter for preprocedural cardiovascular examination DR MANN RIBEIRO Facility:[facility] Start: 08-05-2022 End: 08-26-2022 Pre-admission assessment Mann RIBEIRO [facility] Start: 07-18-2022 End: 07-18-2022 Patient encounter procedure MD Mann Ribeiro Work Phone: [facility] Start: 06-16-2022 End: 06-16-2022 Patient encounter procedure Brianna Bender MD Work Phone: Ophthalmology Comment on above: PCO (posterior capsu lar opacification), bilateral (Primary Dx); Pseudophakia, both eyes; Glaucoma suspect of both eyes; History of refractive surgery - RK Right Eye and RK/AK Left Eye Start: 06-06-2022 End: 06-06-2022 Patient encounter procedure Mann RIBEIRO [facility] Start: 05-17-2022 End: 05-18-[address] ERIK [...] Work Phone: Start: 05-13-[address] MEHRAN HOLM Comment on above: Performed By: #### P SAD ####[place] [id number] Phil Acuña Start: 09-24-2019 Transrectal biopsy o f prostate using ultrasound guidance Mann RIBEIRO Colonoscopy Mann RIBEIRO Plan of Treatment Date Care Activity Detail Author Start: 07-28-2022 Influenza vaccination INFLUENZA (#1) [facility] Start: 02-17-2022 COVID-19 VACCINE (4 - Booster for Pfizer series) COVID-19 VACCINE (4 - Booster for Pfizer series) [facility] Start: 11-27-2021 ADVANCE DIRECTIVE DISCUSSION ADVANCE DIRECTIVE DISCUSSION [facility] Start: 2016 PNEUMOCOCCAL: 65+ (1 - PCV) PNEUMOCOCCAL: 65+ (1 - PCV) [facility] Start: 2001 SHINGRIX VACCINE (1 of 2) SHINGRIX VACCINE (1 of 2) [facility] Start: 1996 COLOGUARD (FIT-DNA) COLOGUARD (FIT-DNA) [facility] Start: 1996 Colonoscopy COLONOSCOPY [facility] Start: 1996 COLORECTAL CANCER SCREENING COLORECTAL CANCER SCREENING [facility] Start: [address] COLONOGRAPHY [facility] Start: 1996 DIABETES SCREEN DIABETES SCREEN [facility] Start: 1996 FECAL OCCULT BLOOD FECAL OCCULT BLOOD [facility] Start: 1996 SIGMOIDOSCOPY SIGMOIDOSCOPY [facility] Start: 1986 LIPID SCREEN LIPID SCREEN [facility] Start: 1970 Urine microalbumin profile DTAP,TDAP,TD (1 - Tdap) [facility] Start: 1969 ANNUAL PCP TEAM CHRONIC DISEASE VISIT ANNUAL PCP TEAM CHRONIC DISEASE VISIT [facility] Start: 1969 BP CONTROLLED (<130/80) BP CONTROLLED (<130/80) [facility] Start: 1969 HEPATITIS C SCREENING HEPATITIS C SCREENING [facility] Start: 1963 Adult depression screening assessment DEPRESSION SCREENING [facility] Start: 1951 ABDOMINAL AORTIC ANEURYSM SCREENING ABDOMINAL AORTIC ANEURYSM SCREENING [facility] Comprehensive metabo lic 2000 panel - Serum or Plasma [facility] Immunizations Immunization Date Immunization Notes Care Provider Fa cility 09-22-2022 influenza virus vaccine, unspecified formulation [facility] 09-22-2022 influenza, high dose seasonal, preservative-free Erik Holm Other [facility] Oxyntix Other 09-13-2022 COVID-19 Pfizer (bivalent) Erik Holm Other [facility] 10-20-2021 COVID-19 Vaccine Pfi zer - Documentation Purposes Only Erik Holm Other [facility] 02-22-2021 COVID-19 Vaccine Pfi zer - Documentation Purposes Only Erik Holm Other [facility] 02-01-2021 COVID-19 Vaccine Pfi zer - Documentation Purposes Only Erik Holm Other [facility] 01-25-2021 SARS-CoV-2 (COVID-19 ) mRNA BNT-162b2 vax Mann RIBEIRO [facility] 04-20-2018 pneumococcal polysaccharide vaccine, 23 valent Erik Holm Other [facility] 04-19-2017 pneumococcal conjuga te vaccine, 13 valent Erik Mihai Other [facility] Payers Date Payer Category Payer Medicare [id number] 2016 Medicare MEDICARE MEDICAR E A AND B [id number] 2016-Present [phone] [address] [address] [place] [address] Medicare [id number] 2008 Unknown MMO MMO MEDICARE SUPPLEMENT [id number] 2008-Present [phone] [address] [place] [address] Indemnity [id number] 1959 Medicare [id number] 1959 Unknown [id number] 1951 Unknown [id number] 1951 Unknown [id number] 1951 Unknown [id number] 1951 Unknown [id number] 1951 Unknown [id number] 1951 Unknown [id number] 1951 Unknown [id number] 1951 Unknown [id number] Social History Date Type Detail Facility Start: 05-25-2020 End: 05-17-2024 Tobacco smoking status Ex-smoker (finding) [facility] Sex Assigned At Male [facility] End: 11-27-1987 History of tobacco use Current smoker [facility] End: 11-27-1987 History of tobacco use Cigarette Smoker [facility] Start: 07-08-2021 Tobacco use and exposure User of smokeless tobacco [facility] History of tobacco use Chews Tobacco [facility] Start: 06-16-2022 Alcohol intake Current drinke r of alcohol (finding) [facility] Start: 07-08-2021 History SDOH Alcohol Comment 2 beers a day x5 days. [facility] Start: 07-08-2021 Tobacco Comment does smoke cig ar occasinal. [facility] Start: 1950 Sex Assigned At Not on file C [facility] Start: 1950 Sex Assigned At Male F [facility] Medical Equipment Procedure Code Equipment Code Equipment Origin al Text Equipment Identifier Dates Lens Iol 0d +23. 5 Abe Uv Abs - [id number] Start: 07-14-2021 Comment on above: Description: -1.75 Lens Iol Acrysof Trc5 25.0 - [id number] Start: 07-28-2021 Comment on above: Description: n/a Functional Status Date Assessment Result Facility 09-11-2023 Functional Status N/A [facility] 09-09-2022 Functional Status N/A [facility] 06-06-2022 Functional Status N/A [facility] Clinical Notes 07-08-2021 to 12-14-2023 Note Date & Type Note Facility 12-14-2023 Evaluation note Encounter Date Diagnosis Assessment Notes Nov, Primary hypertension (ICD-10 - I10) Novadiol Other 12-20-2023 Evaluation note* Encounter Date Diagnosis Assessment Notes Treatment Notes Treatment Clinical Notes Oct, Primary hypertension (ICD-10 - I10) - She has been to Cardiology, who performed screening testing for secondary hypertension, which was negative Patient is instructed on home BP measurements: - rest for 5 minutes w/o talking- positioned w/ feet on floor and arm supported- average best 2/3 readings w/ goal < 135/85 _update office in couple weeks Oct, IFG (impaired fastin g glucose) (ICD-10 - R73.01) This patient is following a comprehensive diabetic treatment plan. They are checking their feet daily for calluses and nonhealing ulcers. They are being seen for yearly dilated eye examinations. Goals: SBP less than 130, LDL less than 100, FBS less than 140, A1C less than 7%. Oct, Elevated PSA (ICD-10 - R97.20) Stable w/ mild elevation s/p TRUS/bx x 3 w/o malignant cells s/p MRI w/o nodule Continue close monitoring w/ Oct, Pure hypercholestero lemia (ICD-10 - E78.00) Instructed on diet and exercise with continued statin therapy.Discussed the beneficial effects of lowering cholesterol in reducing the risk for cerebrovascular and cardiovascular disease. Oct, Stenosis of left car otid artery (ICD-10 - I65.22) Carotid US: 50-69% 08/2021, 65% 04/2022, < 50% 08/2022, < 50% 10/2023 Continue primary prevention. Reviewed stroke symptoms and instructed to report to ER if develop any suspicious symptoms. Serial carotid US - initially 50-69% narrowing but last 2 years < 50% Oct, Prostate nodule (ICD -10 - N40.2) TRUS/BX: 08/2019, 04/2020, 07/2022 MRI completed w/o nodule Continue f/u w/ Urology Denies dysuria or hematuria PSA remains elevated but stable Oct, Benign prostatic hyperplasia with lower urinary tract symptoms (ICD-10 - N40.1) Symptoms tolerable, f/u Urology Oct, Nocturia (ICD-10 - R35.1) Novadiol Other 11-30-2023 Evaluation note* Encounter Date Diagnosis Assessment Notes Treatment Notes Treatment Clinical Notes Sep, Stenosis of left carotid artery (ICD-10 - I65.22) Novadiol Other 10-16-2023 Hospital Discharge instructions Patient Education 09/11/2023 09:17:40 [...] urethra. Follow these instructions at home: Take iktp-mhs-buprmai and prescription medicines only as told by [...] provider. Document Revised: 06/01/2022 Document Reviewed: 06/01/2022 [employer] Patient Education 2022 [employer]. Follow Up Care 06/06/2022 09:36:13 With:SUSANNA NOVOA, Mann Wei, URL Address: [facility] [address], [place] [address]- When:Within 1 Year(s) Comments:w/LOGAN [facility] 06-19-2023 Evaluation note* Encounter Date Diagnosis Assessment [...] High risk medication use (ICD-10 - Z79.899) Novadiol Other 10-13-2022 Hospital Discharge instructions Patient Education [...] including vitamins, herbs, eye drops, creams, and poju-hql-axtfion medicines. Any problems you or family members [...] provider tells you to take them. Taking ahqw-nsh-ybicrnl medicines, vitamins, herbs, and supplements. Eating and [...] 11/13/2006 Document Revised: 03/04/2020 Document Reviewed: 08/14/2019 [employer] Patient Education 2020 [employer] Follow Up Care 08/05/2022 14:41:24 With:SUSANNA NOVOA, Mann Wei, URL Address: [facility] [address], [place] [address] [id number] When:Within 1 Year(s) Comments:w/ PSA [facility] 07-21-2022 NoteHNO ID: [id number] Author: Brianna Bender V, MD Service: ? [...] patient was offered a surgery/procedure at a [facility] facility. The surgeon/proceduralist and patient have [...] form. -F/U [address] Cline ([facility]; [facility] POD #1) The documentation recorded by the [...] Brianna BENDER MD June 16, 2022 2:49 [facility]07-21-2022 NoteHNO ID: [id number] Author: Radha Mitchell, VENICE Service: ? 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 Radha Mitchell, OD June 16, 2022 2:33 [facility]07-21-2022 History of Present illness Narrative* Brianna eBnder V, MD - 06/16/2022 2:49 PM EDT The documentation for this note was completed by KALA Barrios acting as a scribe for Biranna BENDER MD. 06/16/2022 2:49 PM. ASSESSMENT / [...] patient was offered a surgery/procedure at a [facility] facility. The surgeon/proceduralist and patient have [...] form. -F/[facility] [address] [facility] The documentation recorded by the [...] - ICD9: V45.69, ICD10: Z98.890 Radha Mitchell, VENICE I have confirmed and edited as necessary [...] 16, 2022 2:33 PM documented in [facility] Hospital Discharge instructions Patient Education 06/06/2022 [...] have oneof these risk factors: ?Being of -[place] descent. ?Having a family history of prostate [...] you: Are older than age 55. Are -C[place]. Have a father, brother, or uncle who [...] 08/24/2018 Document Revised: 10/26/2018 Document Reviewed: 08/24/2018 [employer] Patient Education 2020 [employer] 06/06/2022 09:26:22 Benign Prostatic Hyperplasia Benign Prostatic [...] urethra. Follow these instructions at home: Take sxrb-lzx-rkhlnqu and prescription medicines only as told by [...] 11/13/2006 Document Revised: 10/08/2019 Document Reviewed: 12/18/2017 [employer] Patient Education [employer]. Follow Up Care 06/04/2021 08:51:29 With:SUSANNA NOVOA, Mann Wei, URL Address: [facility] [address], [place] [address]- When: Unknown Comments:Will schedule MRI of prostate w/wof/u in 1 year with PSA [facility] 08-12-2021 NoteHNO ID: [id number] Author: AGGIE Cartagena Service: ? Author Type: Entry Level Management Type: Progress Notes Filed: 07/08/2021 11:46 AM Note Text: CONFIRM LEFT EYE DOMINANT. AIM PLANO LEFT EYE WITH TORIC IOL AIM -1.50 RIGHT EYE WITH IQ IOL. Martine Pfeiffer, [facility] Future Appointments Appointment Date:06/09/2023 08:45:00 AM Scheduled Provider:Mann RIBEIRO MD Location:[facility] Appointment Type:URO Office Visit Diagnostic Tests Pending * PSA Total 06/06/22 [facility] evaluation + Plan note Future Appointments Appointment Date:09/09/2022 08:45:00 AM Scheduled Provider:Mann RIBEIRO MD Location:[facility] Appointment Type:URO Office Visit Appointment Date:06/09/2023 08:45:00 AM Scheduled Provider:Mann [facility]IB[facility]IRO [facility] Future Appointments Appointment Date:09/11/2023 08:45:00 AM Scheduled Provider:Mann RIBEIRO [facility] Type:[facility]O Office Visit Diagnostic Tests Pending * PSA Total 09/09/22 [facility] evaluation + Plan note Future Appointments Appointment Date:09/16/2024 08:45:00 AM Scheduled Provider:Mann RIBEIRO MD Location:[facility] Appointment Type:URO Office Visit Diagnostic Tests Pending * PSA Total 09/11/23 [facility] evaluation note* Diagnosis PCO (posterior capsular opacification), bilateral- Primary After-cataract, unspecified Pseudophakia, both eyes Lens replaced by other means Glaucoma suspect of both eyes Preglaucoma, unspecified History of refractive surgery - RK Right Eye and RK/AK Left Eye Other states following surgery of eye and adnexa documented in this encounter [facility] noteNo assessment information availableOhio State Health System Work Phone: Evaluation noteNo InformationNort Boost Media Other Evaluation note* Diagnosis Onset Date Resolution Status Carotid stenosis acute Hypercholesterolemia acute Hypertension acute IFG (impaired fasting glucose) acute Medicare annual wellness visit, subsequent noneactive [facility] Work Phone: Hissecc general Narrative - Reported* Type Description Date Medical History Glaucoma Medical History Prostate nodule Medical History Elevated PSA Medical History Bilateral carotid bruits Medical History Benign prostatic hyp erplasia with lower urinary tract symptoms Medical History Hyperlipidemia type II Medical History Hypertension Medical History Impaired fasting blood sugar Medical History Left carotid stenosis Surgical History Transrectal ultrasound (TRUS) w ith biopsy 08/25/2022 Surgical History Transrectal ultrasound (TRUS) w ith biopsy 09/25/2019 Surgical History colonoscopy 2010 Hospitalization History see surgical history Novadiol Other Hospital course Narrative No data available for this section [facility] Hospital Discharge instructions No data available for this section [facility] No data available for this section [facility] Medications Administered Section Active Administered Medications - up to 3 most recent administrations Medication Order MAR Action Action Date Dose Rate Site fluorescein-benoxinate 0.25-0.4 % 1 Drop (FLURESS) 1 Drop, BOTH EYES, DIRECTED, Starting on Carlita 06/16/22 at 1400, Until Mon06/17/22 at 0159, Administer for applanation tonometry. 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 Advance Directive(s) 07/28/2021 8:45 AM Advance Directive(s) 07/14/2021 9:48 AM Advance Directive(s) 07/08/2021 1:26 PM Advance Directive Response Recorded Date/ Time Advance Directives No July 07, 2022 9:23am Summary Purpose Family History Relationship Condition Age at Onset Recorded Date/T darlene father Hypertension Unknown Chief Complaint and Reason for Visit Chief Complaint Elevated PSA Chief Complaint Medicare Wellness Reason for Visit Carotid stenosis Hypercholesterolemia Hypertension IFG (impaired fasting glucose) Medicare annual wellness visit, subsequent Additional Source Comments Care Team (unrecognized sect ion and content) 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 Relationship Specialty Start Date End Date Erik Holm DO [address] [place] [address] PCP - General Internal Medicine 07/08/21 Team Status: Inactive Member Role Status Dates Mann Ribeiro MD Attending Provider Active Erik Holm DO Primary Care Provider Active Team Status: Active Member Role Status Dates Erik Holm DO Primary Care Provider Active Team Status: Inactive Member Role Status Dates Erik Holm DO Primary Care Provide r, Attending Provider Active Start: May 17, 2024 End: May 17, 2024 Source Comments (unrecognize d section and content) In the event this informatio n is protected by the Federal Confidentiality of Alcohol and Drug Abuse Patient Records regulations: The Federal rules restrict any use of the information to criminally investigate or prosecute any alcohol or drug abuse patient.[facility] Reason for Visit (unrecogniz ed section and content) Reason Comments Posterior Capsule Opacification Evaluati on Both Eyes Pseudophakia IOL Right Eye AIM -1 .50 (08/14/2021) IOL Left Eye (07/28/2021) (unrecognized sect ion and content) No Status Records FoundNo Status Records FoundNo Status Records FoundNo Status Records Found INFORMATION SOURCE (unrecogn ized section and content) DATE CREATED AUTHOR 06/18/2022 [facility] DATE CREATED AUTHOR AUTHOR'S ORGANIZ ATION 07/24/2022 [facility] DATE CREATED AUTHOR AUTHOR'S ORGANIZ ATION 11/17/2022 [facility] DATE CREATED AUTHOR AUTHOR'S ORGANIZ ATION 09/13/2023 [place] [facility] Goals (unrecognized section and content) Goals [...] BE BASED ON THE PRIMARY CLINICAL RECORDS. [facility] [employer] [facility]. provides no warranty or guarantee of the accuracy or completeness of information in this document.
[2024-05-17 12:42] LABS: Basophils Absolute Auto 0.1 10^3/uL (0.0-0.1); Basophils Percent Auto 1.1 % (0.2-2.0); Eosinophils Absolute Auto 0.1 10^3/uL (0.0-0.7); Hematocrit 43.9 % (42.0-54.0); Hemoglobin 14.8 g/dL (14.0-18.0); Immature Granulocytes Abs Auto 0.03 10^3/uL (0.00-0.03); Immature Granulocytes Pct Auto 0.4 % (0.0-0.5); Lymphocytes Absolute Auto 1.2 10^3/uL (1.2-3.8); Lymphocytes Percent Auto 16.8 % (20.5-60.0); Mean Corpuscular HGB Conc 33.7 g/dL (29.9-35.2); Mean Corpuscular Hemoglobin 31.4 pg (25.9-34.0); Mean Platelet Volume 11.7 fL (9.5-13.5); Monocytes Absolute Auto 0.8 10^3/uL (0.3-0.8); Monocytes Percent Auto 10.4 % (1.7-12.0); Neutrophils Absolute Auto 5.1 10^3/uL (1.4-6.5); Neutrophils Percent Auto 70.3 % (43.0-75.0); Platelet Count 244 10^3/uL (150-450); Red Blood Count 4.72 10^6/uL (4.70-6.10); Red Cell Distribution Width 13.3 % (11.0-15.0); White Blood Count 7.3 10^3/uL (4.0-11.0)
[2024-05-17 12:47] LABS: Estimated Average Glucose 114 mg/dL; Glycohemoglobin A1C 5.6 % (4.5-6.2)
[2024-05-17 13:39] LABS: Alanine Aminotransferase 35 U/L (16-63); Albumin Globulin Ratio 1.2; Albumin Level 4.2 g/dL (3.4-5.0); Alkaline Phosphatase 52 U/L (46-116); Anion Gap 13.2; Aspartate Amino Transferase 22 U/L (15-37); BUN Creatinine Ratio 16.7; Bilirubin Total 0.6 mg/dL (0.2-1.0); Calcium 9.1 mg/dL (8.5-10.1); Carbon Dioxide 27.8 mmol/L (21.0-32.0); Chloride 101 mmol/L (98-107); Chol HDL Ratio 2.1; Cholesterol 207 mg/dL (<=200); Estimated GFR (African America >60 (>=60); Estimated GFR (Non-African Ame >60 (>=60); Globulin 3.4 g/dL; Glucose 116 mg/dL (74-106); HDL Cholesterol 99 mg/dL (40-60); Sodium 138 mmol/L (136-145); Total Protein 7.6 g/dL (6.4-8.2); Triglycerides 100 mg/dL (<=150)
== END 2024-05-17 11:52 | disposition home or self-care (01) ==
LOC: LAB 11:54
PROVIDERS: PCP Internal Medicine; Visit Provider Internal Medicine
DX: E78.00 Pure hypercholesterolemia, unspecified (principal); R73.01 Impaired fasting glucose; I10 Essential (primary) hypertension
CPT/HCPCS: 36415; 80053; 80061; 83036; 85025

== ENCOUNTER 2024-09-03 07:54 | Outpatient (OUT) | payer MEDICARE, OTHER, SELFPAY ==
--- OUTSIDE RECORDS SUMMARY | 2024-09-03 07:58 | XMS_ITS | CCD ---
Author Organization [facility] Care Team Providers Care Application Processor Name Role Phone ERIK HOLM Primary Care Physician Erik Holm DO Primary Care Provider MD Mann Ribeiro Attending Provider [phone] DO Erik Holm Primary Care Provider MIHAI, [...] Medication Allergies] Propensity to adverse reactions (disorder) [facility] Repository Medications Current Medications Medication Drug Class(es) Dates Sig (Normalized) Sig (Original) acetaminophen 325 mg / HYDROcodone bitartrate 7.5 mg oral tablet (1 source) Opioid Agonist Start: 08-05-2022 take 1 tablet by mouth once, then take 1 tablet by mouth every hour [place] 325 mg-7.5 mg oral tablet 1 tab(s), Oral, Once, 1 tab(s), Refill(s) 0, Take 1 hour prior to procedure. Don't drive or operate machinery while taking., [facility] #[id number], 162, cm, 06/06/22 9:08:00 EDT, Height/Length [...] Start: 08-26-2019 take 1 capsule by mo [facility] once daily amLODIPine-benazepril 5 mg-20 mg Cap cap(s), Oral, Daily, Refill(s) 0 Start Date: 08/26/19 Status: Or[facility] take 10[facility] amLODIPine Besy-Benazepril HCl 10-20 MG [...] period., # 30 tab(s), Refills(s) 11, Pharmacy: [facility] [id number], 162, cm, 09/11/23 8:42:00 EDT, Height/Length Dosing, [...] period., # 30 tab(s), Refills(s) 3, Pharmacy: [facility] [id number], 162, cm, 06/06/22 9:08:00 EDT, Height/Length Dosing, 59.5,... Start Date: 08/12/22 Status: Ordered Start: 03-09-2020 tadalafil 20 m g Tab 20 mg = 1 tab(s), Oral, As Directed, Take 1 tab 30min. prior to sexual activity, # 30 tab(s), Refills(s) 3, Pharmacy: [facility] [id number], 162, cm, 06/04/21 8:16:00 EDT, Height/Length Dosing, [...] Onset: 09-15-2022 Chronic Other aftercare (1 source) FPC (current) use of anticoagulants; Translations: [FDC CURRNT USE ANTICOAGULANTS] Onset: 08-31-2022 Episodic Other aftercare (2 sources) Other fpc (current) drug therapy; Translations: [OTH TECHNICIAN SEMICONDUCTOR DEVELOPMENT CURRENT DRUG THERAPY] Onset: 05-16-2022 Episodic Other [...] Urnls Dip Stick Auto w/o Microscopy POC 19918 Your Care Team Attending Physician - SUSANNA [...] Mann RIBEIRO MD Where: [facility] [place] Normal [facility] Patient Educationon 09-11-20 Patient Education Urology Benign [...] Follow these instructions at home: ? Take hbzm-wyg-bnunelo and prescription medicines only as told by [...] medicine (more content not included)... Normal [facility] Urology Office/Clinic Noteon 09-11-2023 Urology Office/Clinic Note [...] [facility] [address], [place] [address]- Additional Instructions: w/PSA Patient Education Benign Prostatic [...] Former smoker (more content not included)... Normal [facility] Comment on above: Result Comment: Elec tronically Signed By: SUSANNA NOVOA, Mann Wei\.br\Date and Time Signed: 09/11/23 09:20 EDT\.br\Electronically Co-Signed By: Sandra Ragsdale\.br\Date and Time Co-Signed: 09/11/23 09:18 EDT Lab Reportson 08-25-2023 Lab Reports [id number] D:127 Normal [facility] US CAROTID ART BILon 022 US [...] KARLIE KNOX Date: 2022-09-15 17:15 Normal [facility] CBC AUTO DIFFon 08-22-2022 BASO # 0.1 103/ul Normal 0.0-0.1 [facility] Comment on above: Performed By: #### C BC #### [facility] [address] [place] [address] Dr. Phil Acuña Basophils/100 WBC (Bld) 0.9 % Normal 0.2-2.0 [facility] Comment on above: Performed By: #### C BC #### [facility] [address] [place] [address] Dr. Phil Acuña EO # 0.0 103/ul Normal 0.0-0.7 [facility] Comment on above: Performed By: #### C BC #### [facility] [address] [place] [address] Dr. Phil Acuña Eosinophils/100 WBC (Bld) 0.5 % Critically low 0.9-7.0 [facility] Comment on above: Performed By: #### C BC #### [facility] [address] [place] [address] Dr. Phil Acuña Erythrocyte distribution width (RBC) [Ratio] 12.6 % Normal 11.0-15.0 [facility] Comment on above: Performed By: #### C BC #### [facility] [address] [place] [address] Dr. Phil Acuña Hematocrit (Bld) [Volume fraction] 42.9 % Normal 42.0-54.0 [facility] Comment on above: Performed By: #### C BC #### [facility] [address] [place] [address] Dr. Phil Acuña Hemoglobin (Bld) [Mass/Vol] 14.5 g/dL Normal 14.0-18.0 [facility] Comment on above: Performed By: #### C BC #### [facility] [address] [place] [address] Dr. Phil Acuña IG # 0.04 10e3/ul Critically high 0.00-0.03 [facility] Comment on above: Performed By: #### C BC #### [facility] [address] [place] [address] Dr. Phil Acuña IG % 0.5 % Normal 0.0-0.5 [facility] Comment on above: Performed By: #### C BC #### [facility] [address] [place] [address] Dr. Phil Acuña LYMPH # 1.1 103/ul Critically low 1.2-3.8 [facility] Comment on above: Performed By: #### C BC #### [facility] [address] [place] [address] Dr. Phil Acuña Lymphocytes/100 WBC (Bld) 14.2 % Critically low 20.5-60.0 [facility] Comment on above: Performed By: #### C BC #### [facility] [address] [place] [address] Dr. Phil Acuña MANUAL DIFF REQ NO Normal [facility] [place] Comment on above: Performed By: #### C BC #### [facility] [address] [place] [address] Dr. Phil Acuña MCH (RBC) [Entitic mass] 31.6 pg Normal 25.9-34.0 [facility] Comment on above: Performed By: #### C BC #### [facility] [address] [place] [address] Dr. Phil Acuña MCHC (RBC) [Mass/Vol] 33.8 g/dL Normal 29.9-35.2 [facility] Comment on above: Performed By: #### C BC #### [facility] [address] [place] [address] Dr. Phil Acuña MCV (RBC) [Entitic vol] 93.5 fL Normal 80.0-94.0 [facility] Comment on above: Performed By: #### C BC #### [facility] [address] [place] [address] Dr. Phil Acuña MONO # 0.7 103/ul Normal 0.3-0.8 [facility] Comment on above: Performed By: #### C BC #### [facility] [address] [place] [address] Dr. Phil Acuña Monocytes/100 WBC (Bld) 10.0 % Normal 1.7-12.0 [facility] Comment on above: Performed By: #### C BC #### [facility] [address] [place] [address] Dr. Phil Acuña NEUT # 5.4 103/ul Normal 1.4-6.5 [facility] Comment on above: Performed By: #### C BC #### [facility] [address] [place] [address] Dr. Phil Acuña Neutrophils/100 WBC (Bld) 73.9 % Normal 43.0-75.0 [facility] Comment on above: Performed By: #### C BC #### [facility] [address] [place] [address] Dr. Phil Acuña Platelet mean volume (Bld) [Entitic vol] 10.1 fL Normal 9.5-13.5 [facility] Comment on above: Performed By: #### C BC #### [facility] [address] [place] [address] Dr. Phil Acuña PLT 220 103/ul Normal 150-450 [facility] Comment on above: Performed By: #### C BC #### [facility] [address] [place] [address] Dr. Phil Acuña RBC 4.59 106/ul Critically low 4.70-6.10 [facility] Comment on above: Performed By: #### C BC #### [facility] [address] [place] [address] Dr. Phil Acuña WBC 7.4 103/ul Normal 4.0-11.0 [facility] Comment on above: Performed By: #### C BC #### [facility] [address] [place] [address] Phil Acuña Covid-19 PCR ([facility])on 07-29 SARS-CoV-2 (COVID-19) RNA JOE+probe Ql (Unsp spec) Not detected Normal NOT DETECTED [facility] Comment on above: Result Comment: This test is not yet approved or cleared by the [place] FDA. When there are no FDA-approved or cleared tests available, and other criteria are met, FDA can make tests available under an emergency access mechanism called an Emergency Use Authorization (EUA). The EUA for this test is supported by the Cryptologic Technician Operator/Analyst of Health and Human Service's (HHS's) declaration [...] SARS-CoV-2. Performed By: #### C VDTB #### [facility] [address] [place] [address] Dr. Phil Acuña PROF CHEM 8 (BAS METB)on Anion gap [Moles/Vol] 11.0 mmol/L Normal [facility] Comment on above: Performed By: #### B MP #### [facility] [address] [place] [address] [address] Phil Acuña Calcium [Mass/Vol] 9.2 mg/dL Normal 8.5-10.1 [facility] Comment on above: Performed By: #### B MP #### [facility] [address] [place] [address] [address] Phil cAuña Chloride [Moles/Vol] 102 mmol/L Normal 98-107 [facility] Comment on above: Performed By: #### B MP #### [facility] [address] [address] [address] Phil Acuña CO2 [Moles/Vol] 30.1 mmol/L Normal 21.0-32.0 [facility] Comment on above: Performed By: #### B MP #### [facility] [address] [address] [address] Phil Acuña Creatinine [Mass/Vol] 1.01 mg/dL Normal 0.70-1.30 [facility] Comment on above: Performed By: #### B MP #### [facility] [address] [address] [address] Phil Acuña EGFR-AF AUSTRIAN >60 Normal >=60 [facility] Comment on above: Performed By: #### B MP #### [facility] [address] [place] [address] Dr. Phil Acuña EGFR-NON AF AUSTRIAN >60 Normal >=60 [facility] Comment on above: Performed By: #### B MP #### [facility] [address] [place] [address] Dr. Phil Acuña Glucose [Mass/Vol] 121 mg/dL Critically high 74-106 [facility] Comment on above: Performed By: #### B MP #### [facility] [address] [place] [address] Dr. Phil Acuña Potassium [Moles/Vol] 4.1 mmol/L Normal 3.5-5.1 [facility] Comment on above: Performed By: #### B MP #### [facility] [address] [address] [address] Phil Acuña Sodium [Moles/Vol] 139 mmol/L Normal 136-145 [facility] Comment on above: Performed By: #### B MP #### [facility] [address] [address] [address] Phil Acuña Urea nitrogen [Mass/Vol] 20.0 mg/dL Critically high 7.0-18.0 [facility] Comment on above: Performed By: #### B MP #### [facility] [address] [place] [address] Dr. Phil Acuña Urea nitrogen/Creatinine [Mass ratio] 19.8 mg/mg Normal [facility] Comment on above: Performed By: #### B MP #### [facility] [address] [place] [address] Dr. Phil Acuña PROTIMEon 08-22-2022 INR Coag (PPP) [Relative time] 0.99 {INR} Normal [facility] Comment on above: Performed By: #### P TT, PT #### [facility] [address] [place] [address] Dr. Phil Acuña INR GUIDELINES SEE BELOW Normal [facility] Comment on above: Result Comment: GERRY RED INR: 2.0 - 3.0 CONDITIONS NOT LISTED BELOW 2.5 - 3.5 FOR PROSTHETIC HEART VALVE REPLACEMENT 2.5 - 3.5 RECURRENT THROMBOSIS Performed By: #### P TT, PT #### [facility] [address] [place] [address] Dr. Phil Acuña PT Coag (PPP) [Time] 10.7 s Normal 9.0-11.6 [facility] Comment on above: Performed By: #### P TT, PT #### [facility] [address] [place] [address] Dr. Phil Acuña PTTon 08-22-2022 aPTT Coag (Bld) [Time] 26.8 s Normal 22.3-36.2 [facility] Comment on above: Performed By: #### P TT, PT #### [facility] [address] [place] [address] Dr. Phil Acuña Creatinine (Bld) [Mass/Vol]O rdered By: Mann Ribeiro on 07-18-2022 Creatinine [Mass/Vol] 1.0 mg/dL 0.6-1.3 [facility] Comment on above: ER/ESD physician is notified/shown all ISTAT results. Critical values may be confirmed by laboratory testing if deemed necessary by ER attending doctor. ISTAT XRay CREon 07-18-2022 Creatinine [Mass/Vol] 1.0 mg/dL Normal 0.6-1.3 [facility] Comment on above: Result Comment: ER/E SD physician is notified/shown all ISTAT results. Critical values may be confirmed by laboratory testing if deemed necessary by ER attending doctor. Performed By: #### I SCRE #### [address] Point of Care testing , ISTAT GFR ( > 60 Normal [facility] Comment on above: Result Comment: GFR estimated reference range: According to KDOQI guidelines, <60 ml/min/1.73m2 is sufficient to diagnose a patient with chronic kidney disease. PERFORMED BY: [place] [address] PATHOLOGIST RACKING MACHINE OPERATOR FRANC SALINAS M.D. Performed By: #### I SCRE #### [address] Point of Care testing , ISTAT GFR (Non- Am > 60 Normal [facility] Comment on above: Performed By: #### I SCRE #### [address] Point of Care testing , MR prostate wo/w conon 07-18 MR prostate wo/w con [facility] [address] MRI Report Signed Patient: Baljinder Brunner MR#: [id number] 5 : 1950 Acct:[id number] Age/Sex: 71 / M ADM Date: 07/18/22 Loc: Room: Type: [facility] Attending Dr: Mann Ribeiro MD Copies to: [...] Jimenez Jr., D.O.07/18/2022 4:10 PM Dictation Location: [place] [address] Transcribed By: [facility] 07/18/22 1610 Dictated By: Ryan Jimenez Jr, DO 07/18/22 1602 Signed By: 07/18/22 1610 Normal [facility] No Panel InformationOrdered By: Mann Ribeiro on 07-18-2022 POC Estimated GFR > 60 [facility] Comment on above: GFR estimated refere nce range: According to KDOQI guidelines, <60 ml/min/1.73m2 is sufficient to diagnose a patient with chronic kidney disease. POC Estimated GFR Non- Amer > 60 [facility] US CAROTID ART BILon 022 US [...] by: KARLIE KNOX Date: 2022-05-17 16:13 Normal [facility] CBC AUTO DIFFon 05-13-2022 BASO # 0.1 103/ul Normal 0.0-0.1 [facility] Comment on above: Performed By: #### C BC #### [facility] [address] [place] [address] Dr. Phil Acuña Basophils/100 WBC (Bld) 1.3 % Normal 0.2-2.0 [facility] Comment on above: Performed By: #### C BC #### [facility] [address] [place] [address] Dr. Phil Acuña EO # 0.2 103/ul Normal 0.0-0.7 [facility] Comment on above: Performed By: #### C BC #### [facility] [address] [place] [address] Dr. Phil Acuña Eosinophils/100 WBC (Bld) 2.9 % Normal 0.9-7.0 [facility] Comment on above: Performed By: #### C BC #### [facility] [address] [place] [address] Dr. Phil Acuña Erythrocyte distribution width (RBC) [Ratio] 12.6 % Normal 11.0-15.0 [facility] Comment on above: Performed By: #### C BC #### [facility] [address] [place] [address] Dr. Phil Acuña Hematocrit (Bld) [Volume fraction] 44.6 % Normal 42.0-54.0 [facility] Comment on above: Performed By: #### C BC #### [facility] [address] [place] [address] Dr. Phil Acuña Hemoglobin (Bld) [Mass/Vol] 15.0 g/dL Normal 14.0-18.0 [facility] Comment on above: Performed By: #### C BC #### [facility] [address] [place] [address] Dr. Phil Acuña IG # 0.01 10e3/ul Normal 0.00-0.03 [facility] Comment on above: Performed By: #### C BC #### [facility] [address] [place] [address] Dr. Phil Acuña IG % 0.2 % Normal 0.0-0.5 [facility] Comment on above: Performed By: #### C BC #### [facility] [address] [place] [address] Dr. Phil Acuña LYMPH # 1.1 103/ul Critically low 1.2-3.8 [facility] Comment on above: Performed By: #### C BC #### [facility] [address] [place] [address] Dr. Phil Acuña Lymphocytes/100 WBC (Bld) 20.8 % Normal 20.5-60.0 [facility] Comment on above: Performed By: #### C BC #### [facility] [address] [place] [address] Dr. Phil Acuña MANUAL DIFF REQ NO Normal [facility] [place] Comment on above: Performed By: #### C BC #### [facility] [address] [place] [address] Dr. Phil Acuña MCH (RBC) [Entitic mass] 31.5 pg Normal 25.9-34.0 [facility] Comment on above: Performed By: #### C BC #### [facility] [address] [place] [address] Dr. Phil Acuña MCHC (RBC) [Mass/Vol] 33.6 g/dL Normal 29.9-35.2 [facility] Comment on above: Performed By: #### C BC #### [facility] [address] [address] [address] Phil Acuña MCV (RBC) [Entitic vol] 93.7 fL Normal 80.0-94.0 [facility] Comment on above: Performed By: #### C BC #### [facility] [address] [place] [address] [address] Phil Acuña MONO # 0.6 103/ul Normal 0.3-0.8 [facility] Comment on above: Performed By: #### C BC #### [facility] [address] [place] [address] [address] Phil Acuña Monocytes/100 WBC (Bld) 11.4 % Normal 1.7-12.0 [facility] Comment on above: Performed By: #### C BC #### [facility] [address] [place] [address] Dr. Phil Acuña NEUT # 3.3 103/ul Normal 1.4-6.5 [facility] Comment on above: Performed By: #### C BC #### [facility] [address] [place] [address] Dr. Phil Acuña Neutrophils/100 WBC (Bld) 63.4 % Normal 43.0-75.0 [facility] Comment on above: Performed By: #### C BC #### [facility] [address] [place] [address] Dr. Phil Acuña Platelet mean volume (Bld) [Entitic vol] 9.7 fL Normal 9.5-13.5 [facility] Comment on above: Performed By: #### C BC #### [facility] [address] [place] [address] Dr. Phil Acuña PLT 212 103/ul Normal 150-450 [facility] Comment on above: Performed By: #### C BC #### [facility] [address] [place] [address] Dr. Phil Acuña RBC 4.76 106/ul Normal 4.70-6.10 [facility] Comment on above: Performed By: #### C BC #### [facility] [address] [place], [place] [id number] Dr. Phil Acuña WBC 5.2 103/ul Normal 4.0-11.0 [facility] Comment on above: Performed By: #### C BC #### [facility] [address] [place] [address] [address] Phil Acuña GLYCOHEMOGLOBIN A1Con 2021 ADA RECOMMENDATION SEE BELOW Normal [facility] Comment on above: Result Comment: ADA RECOMMENDED LIMIT 4.0 - 6.0 ADA THERAPEUTIC TARGET < 7.0 ACTION SUGGESTED > 7.0 Performed By: #### A 1C #### [facility] [address] [address] [address] Phil Acuña Glucose [Mass/Vol] 123 mg/dL Normal [facility] Comment on above: Performed By: #### A 1C #### [facility] [address] [address] [address] Phil Acuña HbA1c (Bld) [Mass fraction] 5.9 % Normal 4.5-6.2 [facility] Comment on above: Performed By: #### A 1C #### [facility] [address] [address] [address] Phil Acuña LIPID PROFILEon 05-13-2022 CHOL-HDL RATIO NORM SEE BELOW Normal [facility] Comment on above: Result Comment: 3.3 - 4.4 LOW RISK 4.4 - 7.1 AVERAGE RISK 7.1 - 11.0 MODERATE RISK >11.0 HIGH RISK Performed By: #### L IPID BMP, ALT ####[facility] [address] [place] [id number] Acuña Cholesterol [Mass/Vol] 199 mg/dL Normal <=200 [facility] Comment on above: Performed By: #### L IPID, BMP, ALT ####[facility] [address] [place] [id number] Acuña Cholesterol in HDL [Mass/Vol] 84 mg/dL Critically high 40-60 [facility] Comment on above: Performed By: #### L IPID, BMP, ALT ####[facility] [address] [place] [id number]. Phil Acuña Cholesterol in LDL [Mass/Vol] 97.0 mg/dL Normal [facility] Comment on above: Performed By: #### L YAW ACUÑA, ALT ####[facility] [address] [place] [address]Dr. Phil Acuña Cholesterol.total/Chol esterol in HDL [Mass ratio] 2.4 {ratio} Normal [facility] Comment on above: Performed By: #### L ARIANNE BMP, ALT ####[facility] [address] [place] [address]Dr. Phil Acuña HDL NORMAL > or = 60 mg/dl - LO W CARDIOVASCULAR RISK <40 mg/dl - HIGH CARDIOVASCULAR RISK Normal [facility] Comment on above: Performed By: #### L YAW ACUÑA, ALT ####[facility] [address] [place] [address]Dr. Phil Acuña LDL CALC NORMAL SEE BELOW Normal [facility] [place] Comment on above: Result Comment: <100 mg/dl OPTIMAL 100 - 129 mg/dl NEAR OR ABOVE OPTIMAL 130 - 159 mg/dl BORDERLINE HIGH 160 - 189 mg/dl HIGH >190 mg/dl VERY HIGH Performed By: #### L YAW ACUÑA, ALT ####[facility] [address] [place] [address]Dr. Phil Acuña Triglyceride [Mass/Vol] 90 mg/dL Normal <=150 [facility] Comment on above: Performed By: #### L ARIANNE BMP, ALT ####[facility] [address] [place] [address]Dr. Phil Acuña VLDL CALC 18.0 mg/dL Normal [facility] Comment on above: Performed By: #### L ARIANNE BMP, ALT ####[facility] [address] [place] [address]Dr. Phil Acuña PROF CHEM 8 (BAS METB)on Anion gap [Moles/Vol] 14.4 mmol/L Normal [facility] Comment on above: Performed By: #### L ARIANNE BMP, ALT #### [facility] [address] [address] [address] Phil Acuña Calcium [Mass/Vol] 9.5 mg/dL Normal 8.5-10.1 [facility] Comment on above: Performed By: #### L IPID, BMP, ALT #### [facility] [address] [place] [address] Dr. Phil Acuña Chloride [Moles/Vol] 101 mmol/L Normal 98-107 [facility] Comment on above: Performed By: #### L IPID, BMP, ALT #### [facility] [address] [place] [address] Dr. Phil Acuña CO2 [Moles/Vol] 29.9 mmol/L Normal 21.0-32.0 [facility] Comment on above: Performed By: #### L IPID, BMP, ALT #### [facility] [address] [place] [address] Dr. Phil Acuña Creatinine [Mass/Vol] 0.89 mg/dL Normal 0.70-1.30 [facility] Comment on above: Performed By: #### L IPID, BMP, ALT #### [facility] [address] [place] [address] Dr. Phil Acuña EGFR-AF AUSTRIAN >60 Normal >=60 [facility] Comment on above: Performed By: #### L IPID, BMP, ALT #### [facility] [address] [place] [address] Dr. Phil Acuña EGFR-NON AF AUSTRIAN >60 Normal >=60 [facility] Comment on above: Performed By: #### L IPID, BMP, ALT #### [facility] [address] [place] [address] Dr. Phil Acuña Glucose [Mass/Vol] 118 mg/dL Critically high 74-106 [facility] Comment on above: Performed By: #### L IPID, BMP, ALT #### [facility] [address] [place] [address] Dr. Phil Acuña Potassium [Moles/Vol] 4.3 mmol/L Normal 3.5-5.1 [facility] Comment on above: Performed By: #### L IPID, BMP, ALT #### [facility] [address] [place], [place] [address] Dr. Phil Acuña Sodium [Moles/Vol] 141 mmol/L Normal 136-145 [facility] Comment on above: Performed By: #### L IPID, BMP, ALT #### [facility] [address], [place] [address] Dr. Phil Acuña Urea nitrogen [Mass/Vol] 23.0 mg/dL Critically high 7.0-18.0 [facility] Comment on above: Performed By: #### L IPID, BMP, ALT #### [facility] [address], [place] [address] Dr. Phil Acuña Urea nitrogen/Creatinine [Mass ratio] 25.8 mg/mg Normal [facility] Comment on above: Performed By: #### L IPID, BMP, ALT #### [facility] [address], [place] [address] Dr. Phil Acuña [facility] 05-13-2022 ALT [Catalytic activity/Vol] 31 U/L Normal 16-63 [facility] Comment on above: Performed By: #### L IPID, BMP, ALT ####[facility] [address] [place], [place] [address]PbDr. Phil Acuña community outreach viviana hall 09-02-2021 community outreach carotid [facility] [address] Ultrasound Report Signed Patient: Baljinder Brunner MR#: [id number] 5 : 1950 Acct:[id number] Age/Sex: 70 / M ADM Date: 08/28/21 Loc: Room: Type: DEP REF Attending Dr: Ross Montague Ordering Provider: RSOS MONTAGUE Date of Service: 08/28/21 / community outreach carotid: SCREENING Copies to: [facility] CAROTID DUPLEX INDICATION: Community outreach [...] Jose Steinberg MD09/02/2021 8:00 AM Dictation Location: [place] [address] Tech: [facility] Transcribed By: VISHAL 09/02/21799 Dictated By: Jose Steinberg MD 09/02/21 0759 Signed By: 09/02/21799 [facility] ANES POSTPROC EVALon 021 ANES POSTPROC EVAL HNO ID: [id number] Author: Brent Balbuena MD Service: Anesthesiology Author Type: Anesthesiologist Type: Anesthesia Postprocedure Evaluation Filed: 07/28/2021 10:28 AM Note Text: POST ANESTHESIA EVALUATION NOTE : 1950 Procedure Summary Date: 07/28/21 Room / Location: [place] [address] / [facility] Anesthesia Start: 954 [...] July 28, 2021 TIME: 10:27 AM CSN: [id number] Normal [facility] ANES PRE-OPon 07-28-2021 ANES PRE-OP HNO ID: [id number] Author: Brent Balbuena MD Service: Anesthesiology Author [...] ON 07/29/2021] lidocaine 2 % (XYLOCAINE) OTHER Test Borer Helper to OR - tetracaine (PF) 0.5 % [...] July 28, 2021 TIME: 9:26 AM CSN: [id number] Normal [facility] NURSING PROGon 07-28-2021 NURSING PROG HNO ID: [id number] Author: Meryl Huynh RN Service: ? Author [...] Meryl Huynh RN In Department: AMBULATORY SURGERY [facility] OPERATIVE NOon 07-28-2021 OPERATIVE NO HNO ID: [id number] Author: Brianna Bender V, MD Service: Ophthalmology Author Type: Physician Type: Operative Report Filed: 07/28/2021 10:15 AM Note Text: OPERATIVE REPORT DATE OF SERVICE: July 28, 2021 PRIMARY SURGEONS: Brianna Bender MD ART OBJECTS SALESPERSON: None Procedure(s) (LRB): PHACOEMULSIFICATION CATARACT IMPLANT INTRAOCULAR [...] corneal incision was created temporally with a Solomon blade then a 2.4 mm keratome. The anterior chamber was reformed with Viscoat, after which the anterior capsule was opened centrally. Using the Utrata forceps a continuous curvilinear capsulorrhexis of approximately 5.5 mm round was created. Gentle hydrodissection was accomplished using preservative-free lidocaine on a 27-gauge canula. Using the Pancho phacoemulsification unit with the [employer] curved tip, the anterior chamber was entered [...] care POD #1 Brianna BENDER MD Normal [facility] ANES POSTPROC EVALon 021 ANES POSTPROC EVAL HNO ID: [id number] Author: Leyda Astudillo MD Service: Anesthesiology Author Type: Physician Type: Anesthesia Postprocedure Evaluation Filed: 07/14/2021 2:09 PM Note Text: POST ANESTHESIA EVALUATION NOTE : 1950 Procedure Summary Date: 07/14/21 Room / Location: [address] Anesthesia Start: 1121 Anesthesia Stop: 1140 [...] July 14, 2021 TIME: 2:09 PM CSN: [id number] Normal [facility] ANES PRE-OPon 07-14-2021 ANES PRE-OP HNO ID: [id number] Author: Leyda Astudillo MD Service: Anesthesiology Author [...] ON 07/15/2021] lidocaine 2 % (XYLOCAINE) OTHER Test Borer Helper to OR - [COMPLETED] tetracaine (PF) 0.5 [...] July 14, 2021 TIME: 11:04 AM CSN: [id number] [facility] OPERATIVE NOon 07-14-2021 OPERATIVE NO HNO ID: [id number] Author: Brianna Bender V, MD Service: Ophthalmology Author Type: Physician Type: Operative Report Filed: 07/14/2021 11:37 AM Note Text: OPERATIVE REPORT DATE OF SERVICE: July 14, 2021 PRIMARY SURGEON: Brianna Bender M.D. ART OBJECTS SALESPERSON: None Procedure(s) (LRB): PHACOEMULSIFICATION CATARACT IMPLANT INTRAOCULAR [...] corneal incision was created temporally with a Solomon blade then a 2.4 mm keratome. The [...] Implant Name Type Inv. Item Serial No. Stucco Plasterer Lot No. LRB Model Num No. Used LENS IOL 0D +23.5 ABE UV ABS - [id number] Intraocular Lens LENS IOL 0D +23.5 ABE UV ABS [id number] [employer] [facility] Right [id number] was [...] 11:36 AM - Comanage with Dr Cline; [facility] POD #1 Brianna BENDER MD [facility] HISTORY PHYSICALon HISTORY PHYSICAL HNO ID: [id number] Author: Delphine Peña PA-C Service: ? Author Type: Physician Elephant Keeper Type: HANDP Filed: 07/08/2021 10:38 AM Note [...] fevers. Neuro: No history of TIA's, stroke, STAFF NURSE ANESTHETIST tumor, impaired sensorium, hemiplegia, paraplegia or quadraplegia. No neurological symptoms or problems. Respiratory: No history of current cough or dyspnea, or pneumonia in the past 6 weeks. No history of respiratory/pulmonary symptoms or problems. Cardiovascular: No history of HTN requiring medication, no history of angina, CHF, [place], cardiac surgery or stents. Denies rest pain, [...] or f (more content not included)... Normal [facility] No Panel Information [facility] Vital Signs Date Time Vital Sign Value Performing Clinician Facility 05-17-2024 11:040 Body height 162.56 cm [facility] 05-17-2024 11:040 Body mass index (BMI) [Ratio] 22.8 kg/m2 [facility] 05-17-2024 11:090400 Body weight 60.32 kg [facility] 05-17-2024 11:09-0400 Diastolic blood pressure 80 mm[Hg] [facility] 05-17-2024 11:09-0400 Heart rate 61 /min [facility] 05-17-2024 11:09-0400 Respiratory rate 12 /min [facility] [place] 05-17-2024 11:09-0400 Systolic blood pressure 138 mm[Hg] [facility] 11-15-2023 08:30-0500 Body height 162.56 cm Erik Ball Other [facility] Other 11-15-2023 08:30-0500 Body mass index (BMI) [Ratio] 22.72 kg/m2 Erik Ball Other [facility] Other 11-15-2023 08:30-0500 Body weight 60.06 kg Erik Ball Other [facility] Other 11-15-2023 08:30-0500 Diastolic blood pressure 62 mm[Hg] Erik Ball Other [facility] Other 11-15-2023 08:30-0500 Respiratory rate 12 /min Erik Ball Other [facility] Other 11-15-2023 08:30-0500 Systolic blood pressure 164 mm[Hg] Erik Ball Other [facility] Other 09-11-2023 08:33-0400 Blood Pressure Location Mann RIBEIRO [facility] 09-11-2023 08:33-0400 Diastolic blood pressure 84 mm[Hg] Mann RIBEIRO [facility] 09-11-2023 08:33-0400 Heart rate 66 /min Mann RIBEIRO [facility] 09-11-2023 08:33-0400 Respiratory rate 16 /min Mann RIBEIRO [facility] 09-11-2023 08:33-0400 Systolic blood pressure 136 mm[Hg] Mann RIBEIRO [facility] 05-15-2023 09:00-0400 Body height 162.56 cm Erik Ball Other [facility] Other 05-15-2023 09:00-0400 Body mass index (BMI) [Ratio] 22.79 kg/m2 Erik Ball Other [facility] Other 05-15-2023 09:00-0400 Body weight 60.24 kg Erik Ball Other [facility] Other 05-15-2023 09:00-0400 Diastolic blood pressure 70 mm[Hg] Erik Ball Other [facility] Other 05-15-2023 09:00-0400 Respiratory rate 12 /min Erik Ball Other [facility] Other 05-15-2023 09:00-0400 Systolic blood pressure 179 mm[Hg] Erik Ball Other [facility] Other 09-09-2022 09:12-0400 Blood Pressure Location Mann RIBEIRO [facility] 09-09-2022 09:12-0400 Diastolic blood pressure 87 mm[Hg] Mann RIBEIRO [facility] 09-09-2022 09:12-0400 Heart rate 70 /min Mann RIBEIRO [facility] 09-09-2022 09:12-0400 Respiratory rate 16 /min Mann RIBEIRO [facility] 09-09-2022 09:12-0400 Systolic blood pressure 139 mm[Hg] Mann RIBEIRO [facility] 07-18-2022 14:46-0400 Body height 162.56 cm MD Mann Ribeiro Work Phone: [facility] 07-18-2022 14:46-0400 Body weight 59.42 kg MD Mann Ribeiro Work Phone: [facility] 06-06-2022 09:07-0400 Blood Pressure Location Mann RIBEIRO [facility] 06-06-2022 09:07-0400 Diastolic blood pressure 91 mm[Hg] Mann RIBEIRO [facility] 06-06-2022 09:07-0400 Heart rate 68 /min Mann RIBEIRO [facility] 06-06-2022 09:07-0400 Systolic blood pressure 172 mm[Hg] Mann RIBEIRO [facility] Encounters Encounter Date Encounter Type Care Provider Facility Start: 09-16-2024 ambulatory Mann Reedi ty:[facility] [place] Start: 05-17-2024 End: 05-17-[address] [facility] Work Phone: Start: 05-17-2024 End: 05-17-2024 Patient encounter procedure [facility] Work Phone: Start: 01-01-2024 End: 01-01-2024 ambulatory Erik Holm Other [facility] Other Start: 01-01-2024 Telephone encounter Erik Holm [facility] Start: 12-14-2023 End: 12-14-2023 ambulatory Erik Holm Other [facility] Other Start: 12-14-2023 Telephone encounter Erik Holm [facility] Start: 11-16-2023 End: 11-16-2023 ambulatory Erik Holm Other [facility] Other Start: 11-16-2023 Telephone encounter Erik Holm [facility] Start: 11-15-2023 End: 11-15-2023 ambulatory Erik Holm Other [facility] Other Start: 11-15-2023 Office outpatient vi sit 25 minutes Erik Holm [facility] Start: 11-01-2023 End: 11-01-2023 ambulatory Erik Holm Other [facility] Other Start: 11-01-2023 Telephone encounter Erik Holm [facility] Start: 10-26-2023 End: 10-26-2023 ambulatory Erik Holm Other [facility] Other Start: 10-26-2023 Telephone encounter Erik Holm [facility] Start: 09-11-2023 End: 09-12-2023 ambulatory Mann RIBEIRO Facility:[facility] Start: 09-11-2023 End: 09-11-2023 Patient encounter procedure Mann RIBEIRO [facility] Start: 05-16-2023 End: 05-16-2023 ambulatory Erik Holm Other [facility] Other Start: 05-16-2023 Telephone encounter Erik Holm [facility] Start: 05-15-2023 End: 05-15-2023 ambulatory Erik Holm Other [facility] Other Start: 05-15-2023 Encounter by dee dee Holm [facility] Start: 05-15-2023 Patient encounter procedure Erik Holm [facility] Start: 09-15-2022 End: 09-16-[address] ERIK HOLM Facility:[facility] Start: 09-09-2022 End: 09-09-2022 Patient encounter procedure Mann RIBEIRO [facility] Start: 08-25-2022 End: 08-25-[address] MANN RIBEIRO Facility:[facility] Start: 08-24-2022 Encounter for preprocedural cardiovascular examination DR MANN RIBEIRO [facility] Start: 08-24-2022 Encounter for preprocedural laboratory examination DR MANN RIBEIRO [facility] Start: 08-22-2022 End: 08-23-[address] MANN RIBEIRO Facility:[facility] Start: 08-22-2022 End: 08-23-2022 Encounter for preprocedural cardiovascular examination DR MANN RIBEIRO Facility:[facility] Start: 08-05-2022 End: 08-26-2022 Pre-admission assessment Mann RIBEIRO [facility] Start: 07-18-2022 End: 07-18-2022 Patient encounter procedure MD Mann Ribeiro Work Phone: [facility] [place] Start: 06-16-2022 End: 06-16-2022 Patient encounter procedure Brianna Bender MD Work Phone: Ophthalmology Comment on above: PCO (posterior capsu lar opacification), bilateral (Primary Dx); Pseudophakia, both eyes; Glaucoma suspect of both eyes; History of refractive surgery - RK Right Eye and RK/AK Left Eye Start: 06-06-2022 End: 06-06-2022 Patient encounter procedure Mann RIBEIRO [facility] Start: 05-17-2022 End: 05-18-[address] [...] on above: Performed By: #### P SAD ####[place] [id number] Phil Acuña Start: 09-24-2019 Transrectal biopsy o f prostate using ultrasound guidance Mann RIBEIRO Colonoscopy Mann RIBEIRO Plan of Treatment Date Care Activity Detail Author Start: 07-28-2022 Influenza vaccination INFLUENZA (#1) [facility] Start: 02-17-2022 COVID-19 VACCINE (4 - Booster for Pfizer series) COVID-19 VACCINE (4 - Booster for Pfizer series) [facility] Start: 11-27-2021 ADVANCE DIRECTIVE DISCUSSION ADVANCE DIRECTIVE DISCUSSION [facility] Start: 2016 PNEUMOCOCCAL: 65+ (1 - PCV) PNEUMOCOCCAL: 65+ (1 - PCV) [facility] Start: 2001 SHINGRIX VACCINE (1 of 2) SHINGRIX VACCINE (1 of 2) [facility] Start: 1996 COLOGUARD (FIT-DNA) COLOGUARD (FIT-DNA) [facility] Start: 1996 Colonoscopy COLONOSCOPY [facility] Start: 1996 COLORECTAL CANCER SCREENING COLORECTAL CANCER SCREENING [facility] Start: [address] COLONOGRAPHY [facility] Start: 1996 DIABETES SCREEN DIABETES SCREEN [facility] Start: 1996 FECAL OCCULT BLOOD FECAL OCCULT BLOOD [facility] Start: 1996 SIGMOIDOSCOPY SIGMOIDOSCOPY [facility] Start: 1986 LIPID SCREEN LIPID SCREEN [facility] Start: 1970 Urine microalbumin profile DTAP,TDAP,TD (1 - Tdap) [facility] Start: 1969 ANNUAL PCP TEAM CHRONIC DISEASE VISIT ANNUAL PCP TEAM CHRONIC DISEASE VISIT [facility] Start: 1969 BP CONTROLLED (<130/80) BP CONTROLLED (<130/80) [facility] Start: 1969 HEPATITIS C SCREENING HEPATITIS C SCREENING [facility] Start: 1963 Adult depression screening assessment DEPRESSION SCREENING [facility] Start: 1950 ABDOMINAL AORTIC ANEURYSM SCREENING ABDOMINAL AORTIC ANEURYSM SCREENING [facility] Comprehensive metabo lic 2000 panel - Serum or Plasma [facility] Immunizations Immunization Date Immunization Notes Care Provider Fa cility 09-22-2022 influenza virus vaccine, unspecified formulation [facility] 09-22-2022 influenza, high dose seasonal, preservative-free Erik Holm Other [facility] Other 09-13-2022 COVID-19 Pfizer (bivalent) Erik Holm Other [facility] 10-20-2021 COVID-19 Vaccine Pfi zer - Documentation Purposes Only Erik Holm Other [facility] 02-22-2021 COVID-19 Vaccine Pfi zer - Documentation Purposes Only Erik Holm Other [facility] 02-01-2021 COVID-19 Vaccine Pfi zer - Documentation Purposes Only Erik Holm Other [facility] 01-25-2021 SARS-CoV-2 (COVID-19 ) mRNA BNT-162b2 vax Mann RIBEIRO [facility] 04-20-2018 pneumococcal polysaccharide vaccine, 23 valent Erik Holm Other [facility] 04-19-2017 pneumococcal conjuga te vaccine, 13 valent Erik Mihai Other [facility] Payers Date Payer Category Payer Medicare [id number] 2016 Medicare MEDICARE MEDICAR E A AND B [id number] 2016-Present [phone] [address] [address] [place] [address] Medicare [id number] 2008 Unknown MMO MMO MEDICARE SUPPLEMENT [id number] 2008-Present [phone] [address] [place] [address] Indemnity [id number] 1959 Medicare [id number] 1959 Unknown [id number] 1950 Unknown [id number] 1950 Unknown [id number] 1950 Unknown [id number] 1950 Unknown [id number] 1951 Unknown [id number] 1950 Unknown [id number] 1950 Unknown [id number] 1950 Unknown [id number] Social History Date Type Detail Facility Start: 05-25-2020 End: 05-17-2024 Tobacco smoking status Ex-smoker (finding) [facility] Sex Assigned At Male [facility] End: 11-27-1987 History of tobacco use Current smoker [facility] End: 11-27-1987 History of tobacco use Cigarette Smoker [facility] Start: 07-08-2021 Tobacco use and exposure User of smokeless tobacco [facility] History of tobacco use Chews Tobacco [facility] Start: 06-16-2022 Alcohol intake Current drinke r of alcohol (finding) [facility] Start: 07-08-2021 History SDOH Alcohol Comment 2 beers a day x5 days. [facility] Start: 07-08-2021 Tobacco Comment does smoke cig ar occasinal. [facility] Start: 1950 Sex Assigned At Not on file [facility] Start: 1950 Sex Assigned At Male F [facility] Medical Equipment Procedure Code Equipment Code Equipment Origin al Text Equipment Identifier Dates Lens Iol 0d +23. 5 Abe Uv Abs - [id number] Start: 07-14-2021 Comment on above: Description: -1.75 Lens Iol Acrysof Trc5 25.0 - [id number] Start: 07-28-2021 Comment on above: Description: n/a Functional Status Date Assessment Result Facility 09-11-2023 Functional Status N/A [facility] 09-09-2022 Functional Status N/A [facility] 06-06-2022 Functional Status N/A [facility] Clinical Notes 07-08-2021 to 12-14-2023 Note Date & Type Note Facility 12-14-2023 Evaluation note Encounter Date Diagnosis Assessment Notes Nov, Primary hypertension (ICD-10 - I10) [facility] Other 12-20-2023 Evaluation note* Encounter Date Diagnosis [...] f/u Urology Oct, Nocturia (ICD-10 - R35.1) [facility] Other 11-30-2023 Evaluation note* Encounter Date Diagnosis Assessment Notes Treatment Notes Treatment Clinical Notes Sep, Stenosis of left carotid artery (ICD-10 - I65.22) [facility] Other 10-16-2023 Hospital Discharge instructions Patient Education [...] urethra. Follow these instructions at home: Take xocb-bqo-iiqbcew and prescription medicines only as told by [...] provider. Document Revised: 06/01/2022 Document Reviewed: 06/01/2022 [employer] Patient Education 2022 [employer]. Follow Up Care 06/06/2022 09:36:13 With:SUSANNA NOVOA, Mann Wei, URL Address: [facility] [address], [place] [address]- When:Within 1 Year(s) Comments:w/LOGAN [facility] 06-19-2023 Evaluation note* Encounter Date Diagnosis Assessment [...] High risk medication use (ICD-10 - Z79.899) [facility] Other 10-13-2022 Hospital Discharge instructions Patient Education [...] including vitamins, herbs, eye drops, creams, and jfta-oyi-uirivwd medicines. Any problems you or family members [...] provider tells you to take them. Taking wgxx-mqx-qnsssco medicines, vitamins, herbs, and supplements. Eating and [...] 11/13/2006 Document Revised: 03/04/2020 Document Reviewed: 08/14/2019 [employer] Patient Education 2020 Proformative Follow Up Care 08/05/2022 14:41:24 With:SUSANNA NOVOA, Mann Wei, URL Address: [facility] [address], [place] [address] [id number] When:Within 1 Year(s) Comments:w/ PSA [facility] 07-21-2022 NoteHNO ID: [id number] Author: Brianna Bender V, MD Service: ? [...] patient was offered a surgery/procedure at a [facility] facility. The surgeon/proceduralist and patient have discussed [...] form. -F/U [address] Cline ([facility]; [facility] POD #1) The documentation recorded by the [...] Brianna BENDER MD June 16, 2022 2:49 [facility]07-21-2022 NoteHNO ID: [id number] Author: Radha Mitchell, VENICE Service: ? Author Type: STITCHER TAPE CONTROLLED MACHINE Type: Progress Notes Filed: 06/16/2022 3:09 PM [...] Radha Mitchell, OD June 16, 2022 2:33 [facility]-21-2022 History of Present illness Narrative* Brianna Bender [...] patient was offered a surgery/procedure at a [facility] facility. The surgeon/proceduralist and patient have discussed [...] form. -F[facility] [address] [facility] POD #1) The documentation recorded by the [...] 16, 2022 2:33 PM [facility] Discharge instructions Patient Education 06/06/2022 09:26:26 [...] have oneof these risk factors: ?Being of -[place]ian descent. ?Having a family history of prostate [...] you: Are older than age 55. Are -Nigerian. Have a father, brother, or uncle who [...] 08/24/2018 Document Revised: 10/26/2018 Document Reviewed: 08/24/2018 [employer] Patient Education 2020 [employer] 06/06/2022 09:26:22 Benign Prostatic Hyperplasia Benign [...] urethra. Follow these instructions at home: Take ivrt-gsv-ghibssh and prescription medicines only as told by [...] 11/13/2006 Document Revised: 10/08/2019 Document Reviewed: 12/18/2017 [employer] Patient Education [employer]. Follow Up Care 06/04/2021 08:51:29 With:SUSANNA NOVOA, Mann Wei, URL Address: [facility] [address], [place] [address]- When: Unknown Comments:Will schedule MRI of prostate w/wof/u in 1 year with PSA [facility] 08-12-2021 NoteHNO ID: [id number] Author: AGGIE Cartagena Service: ? Author Type: Boring Machine Operator Helper Type: Progress Notes Filed: 07/08/2021 11:46 AM Note Text: CONFIRM LEFT EYE DOMINANT. AIM PLANO LEFT EYE WITH TORIC IOL AIM -1.50 RIGHT EYE WITH IQ IOL. Martine Pfeiffer[facility] Future Appointments Appointment Date:06/09/2023 08:45:00 AM Scheduled Provider:Mann RIBEIRO MD Location:[facility] Appointment Type:URO Office Visit Diagnostic Tests Pending * PSA Total 06/06/22 [facility] evaluation + Plan note Future Appointments Appointment Date:09/09/2022 08:45:00 AM Scheduled Provider:Mann RIBEIRO MD Location:[facility] Appointment Type:URO Office Visit Appointment Date:06/09/2023 08:45:00 AM Scheduled Provider:[facility] App[facility]ments Appointment Date:09/11/2023 08:45:00 AM Scheduled Provider:[facility] Type:[facility]O Office Visit Diagnostic Tests Pending * PSA Total 09/09/22 [facility] evaluation + Plan note Future Appointments Appointment Date:09/16/2024 08:45:00 AM Scheduled Provider:Mann RIBEIRO MD Location:[facility] Appointment Type:URO Office Visit Diagnostic Tests Pending * PSA Total 09/11/23 [facility] evaluation note* Diagnosis PCO (posterior capsular opacification), bilateral- Primary After-cataract, unspecified Pseudophakia, both eyes Lens replaced by other means Glaucoma suspect of both eyes Preglaucoma, unspecified History of refractive surgery - RK Right Eye and RK/AK Left Eye Other states following surgery of eye and adnexa documented [facility] this [facility] noteNo assessment information availableSelect [facility] [place] Work Phone: Evaluation noteNo InformationNort [employer] Other Evaluation note* Diagnosis Onset Date Resolution Status Carotid stenosis acute Hypercholesterolemia acute Hypertension acute IFG (impaired fasting glucose) acute Medicare annual wellness visit, subsequent noneactive [facility] Work Phone: Hisosbn general Narrative - Reported* Type Description Date [...] colonoscopy 2010 Hospitalization History see surgical history [facility] Other Hospital course Narrative No data available for this section [facility] Hospital Discharge instructions No data available for this section [facility] No data available for this section [facility] Medications Administered Section Active Administered Medications [...] Documents on File Type Date Recorded Patient Administrative Operations Coordinator Expl anation Advance Directive(s) 07/28/2021 8:45 AM [...] Care Team (unrecognized sect ion and content) Application Processor Relationship Specialty Start Date End Date Erik Holm DO [address] [place] [address] PCP - General Internal Medicine 07/08/21 Team [...] or prosecute any alcohol or drug abuse patient.[facility] Reason for Visit (unrecogniz ed section and content) Reason Comments Posterior Capsule Opacification Evaluati on Both Eyes Pseudophakia IOL Right Eye AIM -1 .50 (08/14/2021) IOL Left Eye (07/28/2021) (unrecognized sect ion and content) No Status Records FoundNo Status Records FoundNo Status Records FoundNo Status Records Found INFORMATION SOURCE (unrecogn ized section and content) DATE CREATED AUTHOR 06/18/2022 [facility] DATE CREATED AUTHOR AUTHOR'S ORGANIZ ATION 07/24/2022 [facility] DATE CREATED AUTHOR AUTHOR'S ORGANIZ ATION 11/17/2022 [facility] DATE CREATED AUTHOR AUTHOR'S ORGANIZ ATION [facility]/13/2023 [place] [facility] Goals (unrecognized section and content) Goals may [...] BE BASED ON THE PRIMARY CLINICAL RECORDS. [facility]. provides no warranty or guarantee of the accuracy or completeness of information in this document.
[2024-09-03 17:16] LABS: Prostate Specific Antigen Dx 4.78 ng/mL (<=4.00)
== END 2024-09-03 07:55 | disposition home or self-care (01) ==
LOC: LAB 07:54
PROVIDERS: PCP Internal Medicine; Visit Provider Urology
DX: R97.20 Elevated prostate specific antigen [PSA] (principal)
CPT/HCPCS: 36415; 84153

== ENCOUNTER 2025-05-21 09:03 | Outpatient (OUT) | payer MEDICARE, OTHER, SELFPAY ==
[2025-05-21 09:28] LABS: Basophils Absolute Auto 0.1 10^3/uL (0.0-0.1); Basophils Percent Auto 1.1 % (0.2-2.0); Eosinophils Absolute Auto 0.1 10^3/uL (0.0-0.7); Eosinophils Percent Auto 1.9 % (0.9-7.0); Hematocrit 43.2 % (42.0-54.0); Hemoglobin 14.6 g/dL (14.0-18.0); Immature Granulocytes Abs Auto 0.01 10^3/uL (0.00-0.03); Immature Granulocytes Pct Auto 0.2 % (0.0-0.5); Lymphocytes Absolute Auto 1.3 10^3/uL (1.2-3.8); Lymphocytes Percent Auto 21.4 % (20.5-60.0); Mean Corpuscular HGB Conc 33.8 g/dL (29.9-35.2); Mean Corpuscular Hemoglobin 31.1 pg (25.9-34.0); Mean Corpuscular Volume 92.1 fL (80.0-94.0); Mean Platelet Volume 10.1 fL (9.5-13.5); Monocytes Absolute Auto 0.7 10^3/uL (0.3-0.8); Monocytes Percent Auto 11.2 % (1.7-12.0); Neutrophils Percent Auto 64.2 % (43.0-75.0); Platelet Count 193 10^3/uL (150-450); Red Blood Count 4.69 10^6/uL (4.70-6.10); Red Cell Distribution Width 13.2 % (11.0-15.0); White Blood Count 6.3 10^3/uL (4.0-11.0)
[2025-05-21 09:50] LABS: Alanine Aminotransferase 31 U/L (16-63); Albumin Globulin Ratio 1.4; Alkaline Phosphatase 50 U/L (46-116); Anion Gap 11.6; Aspartate Amino Transferase 18 U/L (15-37); BUN Creatinine Ratio 24.5; Bilirubin Total 0.6 mg/dL (0.2-1.0); Calcium 9.2 mg/dL (8.5-10.1); Carbon Dioxide 28.8 mmol/L (21.0-32.0); Chloride 104 mmol/L (98-107); Chol HDL Ratio 1.9; Cholesterol 165 mg/dL (<=200); Estimated GFR (African America >60 (>=60 mL/min/1.73m^2); Estimated GFR (Non-African Ame >60 (>=60 mL/min/1.73m^2); Globulin 2.8 g/dL; Glucose 135 mg/dL (74-106); HDL Cholesterol 85 mg/dL (40-60); Potassium 4.4 mmol/L (3.5-5.1); Sodium 140 mmol/L (136-145); Total Protein 6.8 g/dL (6.4-8.2); Triglycerides 117 mg/dL (<=150); VLDL CHOLESTEROL 23.4 mg/dL
[2025-05-21 13:13] LABS: Estimated Average Glucose 131 mg/dL; Glycohemoglobin A1C 6.2 % (4.5-6.2)
== END 2025-05-21 09:04 | disposition home or self-care (01) ==
LOC: LAB 09:08
PROVIDERS: PCP Internal Medicine; Visit Provider Internal Medicine
DX: E78.00 Pure hypercholesterolemia, unspecified (principal); R73.01 Impaired fasting glucose; I10 Essential (primary) hypertension
CPT/HCPCS: 36415; 80053; 80061; 83036; 85025

== ENCOUNTER 2025-09-12 07:51 | Outpatient (OUT) | payer MEDICARE, OTHER, SELFPAY ==
--- OUTSIDE RECORDS SUMMARY | 2025-09-12 07:55 | XMS_ITS | CCD ---
Author Organization [facility] CliniSyid Care Team Providers Care Sand Mixer Name Role Phone ERIK HOLM Primary Care Physician [phone] Erik Holm DO Primary Care Provider MD Mann Ribeiro Attending Provider [phone] DO Erik Holm Primary Care Provider MIHAI, DR VALENCIA Admitting Unavailable BALL, DR VALENCIA Attending Unavailable BALL, DR VALENCIA Consulting Unavailable BALL, DR VALENCIA Primary Care Unavailable WEST, DR KARLIE Lord Consulting Unavailable BALL, DR VALENCIA Primary Care Unavailable BALL, DR VALENCIA Admitting Unavailable BALL, DR VALENCIA Attending Unavailable BALL, DR VALENCIA Consulting Unavailable WEST, DR KARLIE Lord Consulting Unavailable RIBEIRO, DR PACHECO Attending Unavailable BALL, DR VALENCIA Primary Care Unavailable RIBEIRO, DR PACHECO Consulting Unavailable RIBEIRO, DR MANN Mackitting Unavailable RIBEIRO, DR PACHECO Attending Unavailable BALL, [...] VALENCIA Primary Care Unavailable Mihai, Erik Unavailable Erik Holm DO Primary Care Provider [phone] Erik Holm DO Attending Provider Mann RIBEIRO Attending Unavailable OrzechOpal Attending Unavailable TRUPTI THOMAS Attending Unavailable Allergies Allergy Classification Reported Allergen(s) Allergy Type Date of Onset Reaction(s) Facility (1 source) No Known Medication Allergies; Translations: [No Known Medication Allergies] Propensity to adverse reactions (disorder) [facility] Repository Medications Current Medications Medication Drug Class(es) Dates Sig (Normalized) Sig (Original) acetaminophen 325 mg / HYDROcodone bitartrate 7.5 mg oral tablet (1 source) Opioid Agonist Start: 08-05-2022 take 1 tablet by mouth once, then take 1 tablet by mouth every hour Hiko 325 mg-7.5 mg oral tablet 1 tab(s), Oral, Once, 1 tab(s), Refill(s) 0, Take 1 hour prior to procedure. Don't drive or operate machinery while taking., [facility]/pharmacy #[id number], 162, cm, 06/06/22 9:08:00 EDT, Height/Length Dosing, 59.5, kg, 06/06/22 9:08:00 EDT, Weight Dosing Start Date: 08/05/22 Status: Ordered amLODIPine 10 mg / benazepril hydrochloride 40 mg oral capsule (20 sources) Dihydropyridine Calcium Channel Ramon, Angiotensin Converting Enzyme Inhibitor Start: 05-17-2024 End: 06-26-2024 amLODIPine-benaz epril 10mg-40 mg Cap 1 cap(s), Oral, Daily, 90 cap(s), Refill(s) 0 Start Date: 09/24/24 Status: Ordered Start: 05-17-2024 End: 05-17-2024 take 1 capsule by mouth once daily Amlodipine-Benazepril 10-20 mg capsule Discontinued 1 CAP PO Daily May 17, 2024 12:00am May 17, 2024 11:40am Start: 08-26-2019 amLODIPine-sergio azepril (LOTREL) 5-20 mg per capsule Take by mouth. 0 08/26/2019 Active Start: 08-26-2019 take 1 capsule by mo [facility] once daily amLODIPine-benazepril 5 mg-20 mg Cap cap(s), Oral, Daily, Refill(s) 0 Start Date: 08/26/19 Status: [facility] amLODIPine Besy-Benazepril HCl 10-20 MG TAKE 1 CAPSULE BY MOUTH EVERY DAY Orally qd for 90 days Active Comment on above: Take by mouth. ascorbic acid 226 mg / beta carotene 74173 unt / cuprous oxide 0.8 mg / dl-alpha tocopheryl acetate 200 unt / zinc oxide 34.8 mg oral capsule (1 source) Vitamin C Start: 12-20-2024 take 1 capsule by mouth twice daily Vitamins A,C,O-Plrs-Eajdml (Preservision Areds) 4,296 mcg-226 mg-90 mg capsule Active 1 CAP PO Twice daily November 15, 2024 1:00am Complies with drug therapy aspirin 81 mg delayed release oral tablet (18 sources) Platelet Aggregation Inhibitor, Nonsteroidal Anti-inflammatory Drug Start: 05-17-2024 take 1 tablet by mouth once daily Aspirin 81 mg tablet,delayed release (DR/EC) Active 1 TAB PO Daily May 17, 2024 12:00am FreeTextSi tablet Orally Once a day; Note: Source Status: Taking; Provider: Mihai Valencia ( ) Complies with drug therapy Start: 08-26-2019 take 1 mg by mouth once daily aspirin 81 mg oral tablet mg tab(s), Oral, Daily, Refills(s) 0 Start Date: 08/26/19 Status: Ordered take 1 tablet by bolivar th every twenty-four hours Aspirin 81 MG 1 tablet Orally Once a day Active Comment on above: Take 81 mg by mouth once daily. atorvastatin 40 mg oral tablet (19 sources) HMG-CoA Reductase Inhibitor Start: take 1 tablet by mouth once daily in the evening Atorvastatin 40 mg tablet Active 0 .ROUTE .COMPLEX December 19, 2024 6:48pm TAKE 1 TABLET BY MOUTH EVERY EVENING Complies with drug therapy Start: 05-13-2021 End: 12-19-2024 take 1 tablet by mouth once daily at bedtime Atorvastatin 40 mg tablet Discontinued 40 MG PO Daily at bedtime May 17, 2024 12:00am December 19, 2024 6:48pm Comment on above: Take 40 mg by mouth daily at bedtime. benoxinate hydrochloride 4 mg/ml / fluorescein sodium 2.5 mg/ml ophthalmic solution (1 source) Diagnostic Dye Start: 06-16-20 End: 06-17-20 fluorescein-luis xinate 0.25-0.4 % 1 Drop (FLURESS) bisoprolol fumarate 5 mg / hydroCHLOROthiazide 6.25 mg oral tablet (2 sources) Thiazide Diuretic, beta-Adrenergic Ramon Start: 02-26-20 take 1 tablet by mouth once daily Bisoprolol-Orondo chlorothiazide 5-6.25 mg tablet Active 0 .ROUTE .COMPLEX February 25, 2025 8:22pm TAKE 1 TABLET BY MOUTH EVERY DAY Complies with drug therapy Start: 02-03-2025 End: 02-25-2025 take 1 tablet by mouth once daily Bisoprolol-Hydrochlorothiazide 5-6.25 mg tablet Discontinued 1 TAB PO Daily February 03, 2025 12:00am February 25, 2025 8:23pm hydroCHLOROthiazide 25 mg oral tablet (19 sources) Thiazide Diuretic Start: 09-24-2024 take 1 tablet by mouth once daily Hydrochlorothiazide 25 mg tablet Active 0 .ROUTE .COMPLEX September 24, 2024 1:35pm TAKE 1 TABLET BY MOUTH EVERY DAY Complies with drug therapy Start: 08-26-2019 End: 09-24-2024 take 1 tablet by mouth once daily Hydrochlorothiazide 25 mg tablet Discontinued 1 TAB PO Daily May 17, 2024 12:00am September 24, 2024 1:35pm FreeTextSig: TAKE 1 TABLET BY MOUTH EVERY DAY; Note: Source Status: Taking; Provider: Mihai Valencia ( ) Comment on above: Take 25 mg by mouth once daily. phenylephrine hydrochloride 25 mg/ml ophthalmic solution (1 source) alpha-1 Adrenergic Agonist Start: End: PHENYLephrine 2.5 % 1 Drop (AK-DILATE, KALIE-SYNEPHRINE) pravastatin sodium 80 mg oral tablet (6 sources) HMG-CoA Reductase Inhibitor Start: take 1 mg by mouth once daily pravastatin 80 mg Tab mg tab(s), Oral, Daily, Refills(s) 0 Start Date: 08/26/19 Status: Ordered Comment on above: Take by mouth. tadalafil 10 mg oral tablet (19 sources) Phosphodiesterase 5 Inhibitor Start: End: take 1 tablet by mouth once daily Tadalafil 10 mg tablet Active 10 MG PO Daily November 15, 2024 9:51am Complies with drug therapy Start: 05-17-2024 End: 11-15-2024 take 1 tablet by mouth once daily as needed Tadalafil 20 mg tablet Discontinued 1 TAB PO Daily May 17, 2024 12:00am November 15, 2024 1:34pm FreeTextSi tablet as needed Orally Once a [...] period., # 30 tab(s), Refills(s) 11, Pharmacy: [facility] [id number], 162, cm, 09/11/23 8:42:00 EDT, Height/Length Dosing, 61.2, kg, 09/11/23 8:42:00 EDT, Weight Dosing Start Date: 09/11/23 Status: Ordered Start: 08-12-2022 take 1 tablet by boliavr th every twenty-four hours tadalafil 20 mg Tab 20 mg = 1 tab(s), Oral, As Directed, Take 1 tab 1 hr prior to sexual activity as needed. Don't exceed 1 tab in a 24 hr period., # 30 tab(s), Refills(s) 3, Pharmacy: [facility] [id number], 162, cm, 06/06/22 9:08:00 EDT, Height/Length Dosing, 59.5,... Start Date: 08/12/22 Status: Ordered Start: 03-09-2020 tadalafil 20 m g Tab 20 mg = 1 tab(s), Oral, As Directed, Take 1 tab 30min. prior to sexual activity, # 30 tab(s), Refills(s) 3, Pharmacy: [facility] [id number], 162, cm, 06/04/21 8:16:00 EDT, Height/Length Dosing, [...] Sig (Original) amLODIPine 5 mg oral tablet (4 sources) Dihydropyridine Calcium Channel Ramon Start: 05-17-2024 End: 05-17-2024 take 1 tablet by mouth once daily Amlodipine 5 mg tablet Discontinued 5 MG PO Daily May 17, [...] Nocturia; Translations: [Nocturia] Onset: 06-06-2022 Episodic Glaucoma (17 sources) Glaucoma; Translations: [Preglaucoma, unspecified, bilateral] Onset: 08-31-2022 08-26-2019 Chronic Hyperplasia of prostate (20 sources) Benign prostatic hypertrophy with outflow obstruction; Translations: [Benign prostatic hyperplasia with lower urinary tract symptoms] Onset: 05-13-2022 Chronic Neoplasms of unspecified nature or uncertain behavior (5 sources) Neoplasm of uncertain behavior of prostate 10-11-2019 Episodic Occlusion or stenosis of precerebral arteries (20 sources) Occlusion and stenosis of left carotid artery; Translations: [Left carotid artery stenosis] Onset: 09-15-2022 Chronic Comment on above: Carotid US: left 50- 69% 08/2021, left 65% 04/2022, B/L< 50% 08/2022, B/L< 50% 10/2023 Other aftercare (1 source) [facility] (current) use of anticoagulants; Translations: [HALF-WAY CURRNT USE ANTICOAGULANTS] Onset: 08-31-2022 Episodic Other aftercare (2 sources) Other long term care administrator (current) drug therapy; Translations: [OTH FUND ACCOUNTANT CURRENT DRUG THERAPY] Onset: 05-16-2022 Episodic Other circulatory disease (8 sources) Cardiovascular symptoms; Translations: [Other specified symptoms and signs involving the circulatory and respiratory systems] Episodic Other circulatory disease (2 sources) Other specified symptoms and signs involving the circulatory and respiratory systems; Translations: [Bilateral carotid bruits] Episodic Other diseases of kidney and ureters (3 sources) Urinary tract obstruction; Translations: [Other obstructive and reflux uropathy] Onset: 06-06-2022 Episodic Other male genital disorders (6 sources) Male erectile dysfunction, unspecified; Translations: [Erectile dysfunction] Onset: 06-06-2022 Chronic Other male genital disorders (5 sources) Impotence 10-11-2019 Chronic Other male genital [...] prostate specific antigen [PSA]] Onset: 06-06-2022 Episodic Comment on above: s/p TRUS/Bx 08/2019, 04/2020, 07/2022. Residual codes; unclassified (1 source) History of refractive surgery; Translations: [Other specified postprocedural states] Episodic Screening and history of mental health and substance abuse codes (1 source) Personal history of nicotine dependence; Translations: [PERSONAL HISTORY OF NICOTINE DEPEND] Onset: 08-31-2022 Episodic Unclassified (5 sources) Drug therapy finding 10-11-2019 Unclassified (1 source) CONTACT W/AND (SUSP) EXPOS COVID-19; Translations: [CONTACT W/AND (SUSP) EXPOS COVID-19] Onset: 08-24-2022 Results Test Name Value Interpretation Reference Range Facility Ambulatory Visit Summaryon 1 Ambulatory Visit Summary Ambulatory Visit Summary BALJINDER BRUNNER Martha :1950 Visit Date:09/24/2024 Ambulatory Visit Instructions Your Diagnosis Elevated PSA BPH with urinary obstruction ED (erectile dysfunction) Other obstructive and reflux uropathy Your Care Team Attending Physician - TRUPTI THOMAS PA-C Primary Care Physician - ERIK HOLM DO This Is Your Medications List tadalafil (tadalafil 10 mg Tab) Contact prescribing physician if questions or concerns amlodipine-benazepril (amLODIPine-benazepril 10mg-40 mg Cap) aspirin (aspirin 81 mg oral tablet) atorvastatin (atorvastatin 40 mg Tab) hydrochlorothiazide (hydrochlorothiazide 25 mg Tab) pravastatin (pravastatin 80 mg Tab) Procedures Performed MRI-US fusion guided transperineal biopsy of prostate (08/25/2022), Transrectal biopsy of prostate using ultrasound (US) guidance (09/24/2019), Colonoscopy. Discharge Vitals Heart Rate (Peripheral) 64 Blood Pressure 176/76 Height 162 cm Height 64 in Weight 81.2 kg Weight 178.64 lb BMI 30.94 What to do next Scheduled Follow-Up Appointments Monday 8:00 AM EDT With: Mann RIBEIRO MD Where: [facility] [address] [place] [address] [place] [address]- You Need to Schedule the Following Appointments Follow Up with Mann RIBEIRO MD, URL When: Within 1 year Where: [address] [place] [id number]- Medications What How Much When Instructions Changed tadalafil (tadalafil 10 mg Tab) 1 Tablets By Mouth Every day Duration: 90 Days Pickup at [facility]/pharmacy #[id number] Unchanged amlodipine-benazepril (amLODIPine-benazepril 10mg-40 mg Cap) 1 Capsules By Mouth Every day Contact prescribing physician if questions or concerns Unchanged aspirin (aspirin 81 mg oral tablet) By Mouth Every day Contact prescribing physician if questions or concerns Unchanged atorvastatin (atorvastatin 40 mg Tab) Contact prescribing physician if questions or concerns Unchanged hydrochlorothiazide (hydrochlorothiazide 25 mg Tab) By Mouth Every day Contact prescribing physician if questions or concerns Unchanged pravastatin (pravastatin 80 mg Tab) By Mouth Every day Contact prescribing physician if questions or concerns Pharmacy Information [facility]/pharmacy #[id number]: [address], [place] [id number] [phone] Allergies No Known Medication Allergies Problems Ongoing - Any problem that you are currently receiving treatment for. 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 Please share your experience with us by completing your survey. We appreciate your feedback and thank you for choosing us for your care. Education Materials Benign Prostatic Hyperplasia Benign prostatic hyperplasia (BPH) [...] or symptoms? Symptoms of this condition include: ??? Getting up often during the night to urinate. ??? Needing to urinate frequently during the day. ??? Difficulty starting urine flow. ??? Decrease in size and strength of your urine stream. ??? Leaking (dribbling) after urinating. ??? Inability to pass urine. This needs immediate treatment. ??? Inability to completely empty your bladder. ??? Pain when you pass urine. This is more common if there is also an infection. ??? Urinary tract infection (UTI). How is this diagnosed? This condition is diagnosed based on your medical history, a physical exam, and your symptoms. Tests will also be done, such as: ??? A post-void bladder scan. This measures any amount of urine that may remain in your bladder after you finish urinating. ?? (more content not included)... Normal [facility] Urology Office/Clinic Noteon 09-24-2024 Urology Office/Clinic Note Urology Office/Clinic Note Chief Complaint 1 yr f/u w/ PSA HPI Staff 1 yr w/ PSA. Previous dx: elevated PSA, BPH with urinary obstruction, AMELIA of prostate, impotence, nocturia. *Started on Tadalafil 20mg prn at prior OV PSA 09/03/24 - 4.78 Dysuria: no Incomplete bladder emptying: not often Hematuria: no Frequency: _q3-4 hrs Urgency: _no Nocturia: 2x Stream: at times Leaking: no Post void dripping: no Wearing pads/ Depends: no Urge incontinence: no Stress incontinence: za Incontinence without Sensory Awareness: _ Abdominal pain: _ Flank pain: _ Sexual complaints: _ Review of Systems PHQ Score Initial Depression Screen Score: 0 SCORE no fever, chills, malaise, myalgia. no rash/lesions. no chest pain, palpitations, or SOB. no abdominal pain, nausea, vomiting. no unilateral calf swelling, redness, pain Physical Exam Vitals & Measurements HR: 64(Peripheral) BP: 176/76 HT: 64 in HT: 162 cm WT: 81.2 kg WT: 178.64 lb BMI: 30.94 General: nontoxic, NAD Mouth: moist mucosa Lungs: normal respiratory effort Cardio: regular rate, good distal perfusion Abdomen: nondistended, no suprapubic distention or tenderness, no CVA tenderness Neurologic: Grossly normal Skin: No rashes or suspicious lesions Assessment/Plan UA shows sm leuk and trace int hgb but pt asx so will hold off on C&S. 1. Elevated PSA (R97.20: Elevated prostate specific antigen [PSA]) Pt has undergone 2 TRUS/Bx's in the past. Bx done 08/2019 showed one core of AMELIA, repeat Bx done 04/2020 all cores were negative. Recent TRUS done 08/25/2022 was negative. PSA 05/12/21 - 6.17 05/13/22 - 4.99 08/25/23 - 5.83 09/03/24 - 4.78 Down from last year. Continue annual levels. Order given. Ordered: E&M of Est. Patient Moderate 30-39 Min 36230 PSA Total Urnls Dip Stick Auto w/o Microscopy POC 25587 2. BPH with urinary obstruction (N40.1: Benign prostatic hyperplasia with lower urinary tract symptoms) IPSS 4 QOL 1 on daily tadalafil. Very pleased. Does not wish to change anything. 3. ED (erectile dysfunction) (N52.9: Male erectile dysfunction, unspecified) PRW started pt on Tadalafil 20mg QOD last year. Pt has been cutting in half and taking daily bc it's too hard to remember QOD. We discussed switching to 10mg tabs. He would like to do this. New Rx sent to [facility] will use [facility] per pt preference. 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 Medications amLODIPine-benazepril 10mg-40 mg Cap, 1 cap(s), Oral, Daily aspirin 81 mg oral tablet, Oral, Daily atorvastatin 40 mg Tab hydrochlorothiazide 25 mg Tab, Oral, Daily pravastatin 80 mg Tab, Oral, Daily tadalafil 10 mg Tab, 10 mg= 1 tab(s), Oral, Daily, 3 refills Allergies No Known Medication Allergies Social History Alcohol Current. Beer. 3-5 times per week., 09/24/2024 Substance Abuse Never., 09/24/2024 Tobacco Former smoker, quit more than 30 days ago Tobacco Use:. Never Smokeless Tobacco Use:. Cigarettes, 09/24/2024 Former smoker, quit more than 30 days ago Tobacco Use:., 09/24/2024 Family History Myocardial infarct: Father. Immunizations Vaccine Date Status SARS-CoV-2 (COVID-19) mRNA BNT-162b2 vax 01/25/2021 Recorded Lab Results Ambulatory Point of Care Results Bilirubin Urine Dipstick: Negative (09/24/24 12:05:00) Blood Urine Dipstick: Trace-intact (09/24/24 12:05:00) Glucose Urine Dipstick: Negative (09/24/24 12:05:00) Ketones Urine Dipstick: Negative (09/24/24 12:05:00) Leukocytes Urine Dipstick: 1+ Small (09/24/24 12:05:00) Nitrite Urine Dipstick: Negative (09/24/24 12:05:00) Protein Urine Dipstick: Negative (09/24/24 12:05:00) Specific Orange Urine Dipstick: 1.020 (09/24/24 12:05:00) Urine Appearance Urine Dipstick: Clear (09/24/24 12:05:00) Urine Color Urine Dipstick: Yellow (09/24/24 12:05:00) Urobilinogen Urine Dipstick: Normal 0.2-1 EU/dl (09/24/24 12:05:00) pH Urine Dipstick: 6.5 (09/24/24 12:05:00) Normal [facility] Comment on above: Result Comment: Elec tronically Signed By: TRUPTI THOMAS PA-C\.br\Date and Time Signed: 09/24/24 12:35 EDT US CAROTID ART BILon 10-20-2 022 US CAROTID ART JOSE EXAMINATION: US [...] KARLIE KNOX Date: 2022-09-15 17:15 Normal [facility] CBC AUTO DIFFon 08-22-2022 BASO # 0.1 103/ul Normal 0.0-0.1 [facility] Comment on above: Performed By: #### C BC #### [facility] [address] [place] [address] Dr. Phil Acuña Basophils/100 WBC (Bld) 0.9 % Normal 0.2-2.[address] [facility] Comment on above: Performed By: #### C BC #### [facility] [address] [place] [address] Dr. Phil Acuña EO # 0.0 103/ul Normal 0.0-0.[address] [facility] Comment on above: Performed By: #### C BC #### [facility] [address] [place] [address] Dr. Phil Acuña Eosinophils/100 WBC (Bld) 0.5 % Critically low 0.9-7.[address] [facility] Comment on above: Performed By: #### C BC #### [facility] [address] [place] [address] Dr. Phil Acuña Erythrocyte distribution width (RBC) [Ratio] 12.6 % Normal 11.0-15.[address] [facility] Comment on above: Performed By: #### C BC #### [facility] [address] [place] [address] Dr. Phil Acuña Hematocrit (Bld) [Volume fraction] 42.9 % Normal 42.0-54.[address] [facility] Comment on above: Performed By: #### C BC #### [facility] [address] [place] [address] Dr. Phil Acuña Hemoglobin (Bld) [Mass/Vol] 14.5 g/dL Normal 14.0-18.[address] [facility] Comment on above: Performed By: #### C BC #### [facility] [address] [place] [address] Dr. Phil Acuña IG # 0.04 10e3/ul Critically high 0.00-0.03 [facility] Comment on above: Performed By: #### C BC #### [facility] [address] [place] [address] Dr. Phil Acuña IG % 0.5 % Normal 0.0-0.[address] [facility] Comment on above: Performed By: #### C BC #### [facility] [address] [place] [address] Dr. Phil Acuña LYMPH # 1.1 103/ul Critically low 1.2-3.8 [facility] Comment on above: Performed By: #### C BC #### [facility] [address] [place] [address] Dr. Phil Acuña Lymphocytes/100 WBC (Bld) 14.2 % Critically low 20.5-60.[address] [facility] Comment on above: Performed By: #### C BC #### [facility] [address] [place] [address] Dr. Phil Acuña MANUAL DIFF REQ NO Normal [facility] Comment on above: Performed By: #### C BC #### [facility] [address] [place] [address] Dr. Phil Acuña MCH (RBC) [Entitic mass] 31.6 pg Normal 25.9-34.[address] [facility] Comment on above: Performed By: #### C BC #### [facility] [address] [place] [address] Dr. Phil Acuña MCHC (RBC) [Mass/Vol] 33.8 g/dL Normal 29.9-35.[address] [facility] Comment on above: Performed By: #### C BC #### [facility] [address] [place] [address] Dr. Phil Acuña MCV (RBC) [Entitic vol] 93.5 fL Normal 80.0-94.[address] [facility] Comment on above: Performed By: #### C BC #### [facility] [address] [place] [address] Dr. Phil Acuña MONO # 0.7 103/ul Normal 0.3-0.[address] [facility] Comment on above: Performed By: #### C BC #### [facility] [address] [place] [address] Dr. Phil Acuña Monocytes/100 WBC (Bld) 10.0 % Normal 1.7-12.[address] [facility] Comment on above: Performed By: #### C BC #### [facility] [address] [place] [address] Dr. Phil Acuña NEUT # 5.4 103/ul Normal 1.4-6.[address] [facility] Comment on above: Performed By: #### C BC #### [facility] [address] [address] [address] Phil Acuña Neutrophils/100 WBC (Bld) 73.9 % Normal 43.0-75.[address] [facility] Comment on above: Performed By: #### C BC #### [facility] [address] [address] [address] Phil Acuña Platelet mean volume (Bld) [Entitic vol] 10.1 fL Normal 9.5-13.[address] [facility] Comment on above: Performed By: #### C BC #### [facility] [address] [place] [address] Dr. Phil Acuña PLT 220 103/ul Normal 150-[address] [facility] Comment on above: Performed By: #### C BC #### [facility] [address] [place] [address] Dr. Phil Acuña RBC 4.59 106/ul Critically low 4.70-6.10 [facility] [facility] Comment on above: Performed By: #### C BC #### [facility] [address] [address] [address] Phil Acuña WBC 7.4 103/ul Normal 4.0-11.[address] [facility] Comment on above: Performed By: #### C BC #### [facility] [address] [place] [address] Dr. Phil Acuña Covid-19 PCR ([facility])on 07-29 SARS-CoV-2 (COVID-19) RNA JOE+probe Ql (Unsp spec) Not detected Normal NOT DETECTED [facility] Comment on above: Result Comment: This test is not yet approved or cleared by the [place] FDA. When there are no FDA-approved or cleared tests available, and other criteria are met, FDA can make tests available under an emergency access mechanism called an Emergency Use Authorization (EUA). The EUA for this test is supported by the [place] of Health and Human Service's (HHS's) declaration [...] SARS-CoV-2. Performed By: #### C VDTB #### [facility] [address] [place] [address] Dr. Phil Acuña PROF CHEM 8 (BAS METB)on Anion gap [Moles/Vol] 11.0 mmol/L Normal [facility] Comment on above: Performed By: #### B MP #### [facility] [address] [place] [address] Dr. Phil Acuña Calcium [Mass/Vol] 9.2 mg/dL Normal 8.5-10.1 [facility] Comment on above: Performed By: #### B MP #### [facility] [address] [place] [address] Dr. Phil Acuña Chloride [Moles/Vol] 102 mmol/L Normal 98-[address] [facility] Comment on above: Performed By: #### B MP #### [facility] [address] [place] [address] Dr. Phil Acuña CO2 [Moles/Vol] 30.1 mmol/L Normal 21.0-32.0 [facility] Comment on above: Performed By: #### B MP #### [facility] [address] [place] [address] Dr. Phil Acuña Creatinine [Mass/Vol] 1.01 mg/dL Normal 0.70-1.[address] [facility] Comment on above: Performed By: #### B MP #### [facility] [address] [place] [address] Dr. Phil Acuña EGFR-AF ZIMBABWEAN >60 Normal >=60 [facility] Comment on above: Performed By: #### B MP #### [facility] [address] [address] [address] Phil Acuña EGFR-NON AF ZIMBABWEAN >60 Normal >=[address] [facility] Comment on above: Performed By: #### B MP #### [facility] [address] [address] [address] Phil Acuña Glucose [Mass/Vol] 121 mg/dL Critically high 74-106 [facility] Comment on above: Performed By: #### B MP #### [facility] [address] [address] [address] Phil Acuña Potassium [Moles/Vol] 4.1 mmol/L Normal 3.5-5.[address] [facility] Comment on above: Performed By: #### B MP #### [facility] [address] [address] [address] Phil Acuña Sodium [Moles/Vol] 139 mmol/L Normal 136-145 [facility] Comment on above: Performed By: #### B MP #### [facility] [address] [address] [address] Phil Acuña Urea nitrogen [Mass/Vol] 20.0 mg/dL Critically high 7.0-18.[address] [facility] Comment on above: Performed By: #### B MP #### [facility] [address] [address] [address] Phil Acuña Urea nitrogen/Creatinine [Mass ratio] 19.8 mg/mg Normal [facility] Comment on above: Performed By: #### B MP #### [facility] [address] [address] [address] Phil Acuña PROTIMEon 08-22-2022 INR Coag (PPP) [Relative time] 0.99 {INR} Normal [facility] Comment on above: Performed By: #### P TT, PT #### [facility] [address] [address] [address] Phil Acuña INR GUIDELINES SEE BELOW Normal [facility] Comment on above: Result Comment: GERRY RED INR: 2.0 - 3.0 CONDITIONS NOT LISTED BELOW 2.5 - 3.5 FOR PROSTHETIC HEART VALVE REPLACEMENT 2.5 - 3.5 RECURRENT THROMBOSIS Performed By: #### P TT, PT #### [facility] [address] [address] [address] Phil Acuña PT Coag (PPP) [Time] 10.7 s Normal 9.0-11.[address] [facility] Comment on above: Performed By: #### P TT, PT #### [facility] [address] [address] [address] Phil Acuña PTTon 08-22-2022 aPTT Coag (Bld) [Time] 26.8 s Normal 22.3-36.2 [facility] Comment on above: Performed By: #### P TT, PT #### [facility] [address] [address] [address] Phil Acuña Creatinine (Bld) [Mass/Vol]O rdered By: Mann Ribeiro on 07-18-2022 Creatinine [Mass/Vol] 1.0 mg/dL 0.6-1.3 [facility] Comment on above: ER/ESD physician is notified/shown all ISTAT results. Critical values may be confirmed by laboratory testing if deemed necessary by ER attending doctor. ISTAT XRay CREon 07-18-2022 Creatinine [Mass/Vol] 1.0 mg/dL Normal 0.6-1.3 [facility] Comment on above: Result Comment: ER/E SD physician is notified/shown all ISTAT results. Critical values may be confirmed by laboratory testing if deemed necessary by ER attending doctor. Performed By: #### I SCRE #### [facility] [address] [place] [address] Point of Care testing , ISTAT GFR ( > 60 Normal [facility] Comment on above: Result Comment: GFR estimated reference range: According to KDOQI guidelines, <60 ml/min/1.73m2 is sufficient to diagnose a patient with chronic kidney disease. PERFORMED BY: [place] [address] PATHOLOGIST NEWSPAPER STUFFER FRANC SALINAS M.D. Performed By: #### I SCRE #### [facility] [address] [place] [address] Point of Care testing , ISTAT GFR (Non- Am > 60 Normal [facility] Comment on above: Performed By: #### I SCRE #### [id number] [facility] Point of Care testing , MR prostate wo/w conon 07-18 MR prostate wo/w con [facility] [address] [place] [address] MRI Report Signed Patient: Baljinder Brunner MR#: [id number] 5 : 1950 Acct:[id number] Age/Sex: 71 / M ADM Date: 07/18/22 Loc: MR Room: Type: [facility] Attending Dr: Mann Ribeiro MD Copies [...] Jimenez Jr., D.O.07/18/2022 4:10 PM Dictation Location: [place] [address] Transcribed By: [facility] 07/18/22 1610 Dictated By: Ryan Jimenez Jr, DO 07/18/22 1602 Signed By: 07/18/22 1610 Normal [facility] No Panel InformationOrdered By: Mann Ribeiro on 07-18-2022 POC Estimated GFR > 60 [facility] Comment on above: GFR estimated refere nce range: According to KDOQI guidelines, <60 ml/min/1.73m2 is sufficient to diagnose a patient with chronic kidney disease. POC Estimated GFR Non- Amer > 60 [facility] US CAROTID ART BILon 022 US [...] KARLIE KNOX Date: 2022-05-17 16:13 Normal [facility] CBC AUTO DIFFon 05-13-2022 BASO # 0.1 103/ul Normal 0.0-0.1 [facility] Comment on above: Performed By: #### C BC #### [facility] [address] [place] [address] Dr. Phil Acuña Basophils/100 WBC (Bld) 1.3 % Normal 0.2-2.[address] [facility] Comment on above: Performed By: #### C BC #### [facility] [address] [place] [address] Dr. Phil Acuña EO # 0.2 103/ul Normal 0.0-0.7 [facility] Comment on above: Performed By: #### C BC #### [facility] [address] [place] [address] Dr. Phil Acuña Eosinophils/100 WBC (Bld) 2.9 % Normal 0.9-7.[address] [facility] Comment on above: Performed By: #### C BC #### [facility] [address] [place] [address] Dr. Phil Acuña Erythrocyte distribution width (RBC) [Ratio] 12.6 % Normal 11.0-15.[address] [facility] Comment on above: Performed By: #### C BC #### [facility] [address] [place] [address] Dr. Phil Acuña Hematocrit (Bld) [Volume fraction] 44.6 % Normal 42.0-54.[address] [facility] Comment on above: Performed By: #### C BC #### [facility] [address] [place] [address] Dr. Phil Acuña Hemoglobin (Bld) [Mass/Vol] 15.0 g/dL Normal 14.0-18.[address] [facility] Comment on above: Performed By: #### C BC #### [facility] [address] [place] [address] Dr. Phil Acuña IG # 0.01 10e3/ul Normal 0.00-0.[address] [facility] Comment on above: Performed By: #### C BC #### [facility] [address] [place] [address] Dr. Phil Acuña IG % 0.2 % Normal 0.0-0.5 [facility] Comment on above: Performed By: #### C BC #### [facility] [address] [address] [address] Phil Acuña LYMPH # 1.1 103/ul Critically low 1.2-3.8 [facility] Comment on above: Performed By: #### C BC #### [facility] [address] [address] [address] Phil Acuña Lymphocytes/100 WBC (Bld) 20.8 % Normal 20.5-60.[address] [facility] Comment on above: Performed By: #### C BC #### [facility] [address] [place] [address] Dr. Phil Acuña MANUAL DIFF REQ NO Normal [facility] Comment on above: Performed By: #### C BC #### [facility] [address] [place] [address] Dr. Phil Acuña MCH (RBC) [Entitic mass] 31.5 pg Normal 25.9-34.[address] [facility] Comment on above: Performed By: #### C BC #### [facility] [address] [place] [address] Dr. Phil Acuña MCHC (RBC) [Mass/Vol] 33.6 g/dL Normal 29.9-35.2 [facility] Comment on above: Performed By: #### C BC #### [facility] [address] [place] [address] Dr. Phil Acuña MCV (RBC) [Entitic vol] 93.7 fL Normal 80.0-94.0 [facility] Comment on above: Performed By: #### C BC #### [facility] [address] [place] [address] Dr. Phil Acuña MONO # 0.6 103/ul Normal 0.3-0.8 [facility] Comment on above: Performed By: #### C BC #### [facility] [address] [place] [address] Dr. Phil Acuña Monocytes/100 WBC (Bld) 11.4 % Normal 1.7-12.[address] [facility] Comment on above: Performed By: #### C BC #### [facility] [address] [address] [address] Phil Acuña NEUT # 3.3 103/ul Normal 1.4-6.5 [facility] Comment on above: Performed By: #### C BC #### [facility] [address] [address] [address] Pihl Acuña Neutrophils/100 WBC (Bld) 63.4 % Normal 43.0-75.0 [facility] Comment on above: Performed By: #### C BC #### [facility] [address] [address] [address] hPil Acuña Platelet mean volume (Bld) [Entitic vol] 9.7 fL Normal 9.5-13.5 [facility] Comment on above: Performed By: #### C BC #### [facility] [address] [place] [address] Dr. Phil Acuña PLT 212 103/ul Normal 150-450 [facility] Comment on above: Performed By: #### C BC #### [facility] [address] [place] [address] Dr. Phil Acuña RBC 4.76 106/ul Normal 4.70-6.10 [facility] Comment on above: Performed By: #### C BC #### [facility] [address] [address] [address] Phil Acuña WBC 5.2 103/ul Normal 4.0-11.[address] [facility] Comment on above: Performed By: #### C BC #### [facility] [address] [place] [address] Dr. Phil Acuña GLYCOHEMOGLOBIN A1Con 2021 ADA RECOMMENDATION SEE BELOW Normal [facility] Comment on above: Result Comment: ADA RECOMMENDED LIMIT 4.0 - 6.0 ADA THERAPEUTIC TARGET < 7.0 ACTION SUGGESTED > 7.0 Performed By: #### A 1C #### [facility] [address] [place] [address] Dr. Phil Acuña Glucose [Mass/Vol] 123 mg/dL Normal [facility] Comment on above: Performed By: #### A 1C #### [facility] [address], [place] [address] Dr. Phil Acuña HbA1c (Bld) [Mass fraction] 5.9 % Normal 4.5-6.[address] [facility] Comment on above: Performed By: #### A 1C #### [facility] [address], [place] [address] Dr. Phil Acuña LIPID PROFILEon 05-13-2022 CHOL-HDL RATIO NORM SEE BELOW Normal [facility] Comment on above: Result Comment: 3.3 - 4.4 LOW RISK 4.4 - 7.1 AVERAGE RISK 7.1 - 11.0 MODERATE RISK >11.0 HIGH RISK Performed By: #### L IPID, BMP, ALT ####[facility] [address] [id number] Acuña Cholesterol [Mass/Vol] 199 mg/dL Normal <=200 [facility] Comment on above: Performed By: #### L IPID, BMP, ALT ####[facility] [address] [id number][address] Phil Acuña Cholesterol in HDL [Mass/Vol] 84 mg/dL Critically high 40-[address] [facility] Comment on above: Performed By: #### L IPID, BMP, ALT ####[facility] [address] [id number][address] Phil Acuña Cholesterol in LDL [Mass/Vol] 97.0 mg/dL Normal [facility] Comment on above: Performed By: #### L IPID, BMP, ALT ####[facility] [address] [id number][address] Phil Acuña Cholesterol.total/Chol esterol in HDL [Mass ratio] 2.4 {ratio} Normal [facility] Comment on above: Performed By: #### L IPID, BMP, ALT ####[facility] [address] [id number] Phil Acuña HDL NORMAL > or = 60 mg/dl - LO W CARDIOVASCULAR RISK <40 mg/dl - HIGH CARDIOVASCULAR RISK Normal [facility] Comment on above: Performed By: #### L IPID, BMP, ALT ####[facility] [address] [id number] Acuña LDL CALC NORMAL SEE BELOW Normal [facility] Comment on above: Result Comment: <100 mg/dl OPTIMAL 100 - 129 mg/dl NEAR OR ABOVE OPTIMAL 130 - 159 mg/dl BORDERLINE HIGH 160 - 189 mg/dl HIGH >190 mg/dl VERY HIGH Performed By: #### L IPID, BMP, ALT ####[facility] [address] [address]DrFransisco Acuña Triglyceride [Mass/Vol] 90 mg/dL Normal <=[address] [facility] Comment on above: Performed By: #### L IPID, BMP, ALT ####[facility] [address] [address]DrFransisco Acuña VLDL CALC 18.0 mg/dL Normal [facility] Comment on above: Performed By: #### L IPID, BMP, ALT ####[facility] [address] [address]Dr[address] Phil Acuña PROF CHEM 8 (BAS METB)on Anion gap [Moles/Vol] 14.4 mmol/L Normal [facility] Comment on above: Performed By: #### L IPID, BMP, ALT #### [facility] [address] [address] [address] Phil Acuña Calcium [Mass/Vol] 9.5 mg/dL Normal 8.5-10.1 [facility] Comment on above: Performed By: #### L IPID, BMP, ALT #### [facility] [address] [address] [address] Phil Acuña Chloride [Moles/Vol] 101 mmol/L Normal 98-[address] [facility] Comment on above: Performed By: #### L IPID, BMP, ALT #### [facility] [address] [address] [address] Phil Acuña CO2 [Moles/Vol] 29.9 mmol/L Normal 21.0-32.0 [facility] Comment on above: Performed By: #### L IPID, BMP, ALT #### [facility] [address] [address] [address] Phil Acuña Creatinine [Mass/Vol] 0.89 mg/dL Normal 0.70-1.[address] [facility] Comment on above: Performed By: #### L IPID, BMP, ALT #### [facility] [address] [address] [address] Phil Acuña EGFR-AF ZIMBABWEAN >60 Normal >=60 [facility] Comment on above: Performed By: #### L IPID, BMP, ALT #### [facility] [address] [address] [address] Phil Acuña EGFR-NON AF ZIMBABWEAN >60 Normal >=[address] [facility] Comment on above: Performed By: #### L IPID, BMP, ALT #### [facility] [address] [address] [address] Phil Acuña Glucose [Mass/Vol] 118 mg/dL Critically high 74-106 T [facility] Comment on above: Performed By: #### L IPID, BMP, ALT #### [facility] [address] [address] [address] Phil Acuña Potassium [Moles/Vol] 4.3 mmol/L Normal 3.5-5.[address] [facility] Comment on above: Performed By: #### L IPID, BMP, ALT #### [facility] [address] [address] [address] Phil Acuña Sodium [Moles/Vol] 141 mmol/L Normal 136-145 [facility] Comment on above: Performed By: #### L IPID, BMP, ALT #### [facility] [address] [address] [address] Phil Acuña Urea nitrogen [Mass/Vol] 23.0 mg/dL Critically high 7.0-18.[address] [facility] Comment on above: Performed By: #### L IPID, BMP, ALT #### [facility] [address] [address] [address] Phil Acuña Urea nitrogen/Creatinine [Mass ratio] 25.8 mg/mg Normal [facility] Comment on above: Performed By: #### L IPID, BMP, ALT #### [facility] [address], [place] [address] Dr. Phil Acuña [place] 05-13-2022 ALT [Catalytic activity/Vol] 31 U/L Normal 16-63 [facility] Comment on above: Performed By: #### L IPID, BMP, ALT ####[facility] [address] [place], [place] [address]YdDr. Phil Acuña [facility] outreach caroti don 09-02-2021 [facility] outreach carotid [facility] [address] [place] [address] Ultrasound Report Signed Patient: Baljinder Brunner MR#: [id number] 5 : 1950 Acct:[id number] Age/Sex: 70 / M ADM Date: 08/28/21 Loc: Room: Type: DEP REF Attending Dr: Jeffy Arcos [facility] Date of Service: 08/28/21 /[facility] outreach carotid: SCREENING Copies to: [facility] CAROTID DUPLEX INDICATION: [facility] outreach screening program PROCEDURE: Color-flow duplex [...] common carotid artery is 1.3 . [place]/US community outreach carotid IMPRESSION: MILD TO MODERATE PLAQUE FORMATION IS NOTED BILATERAL EXTRACRANIAL CAROTID ARTERIES. MODERATE STENOSIS OF 50-69% WAS FOUND IN THE LEFT INTERNAL CAROTID ARTERY. No stenoses was identified in the right side. Impression dictated by: Jose Steinberg MD09/02/2021 8:00 AM Dictation Location: [facility] Tech: Rola Kelley Transcribed By: [facility] 09/02/21799 Dictated By: Jose Steinberg MD 09/02/21758 Signed By: 09/02/21799 [facility] ANES POSTPROC EVALon 021 ANES POSTPROC EVAL HNO ID: [id number] Author: Brent Balbuena MD Service: Anesthesiology Author Type: Anesthesiologist Type: Anesthesia Postprocedure Evaluation Filed: 07/28/2021 10:28 AM Note Text: POST ANESTHESIA EVALUATION NOTE : 1950 Procedure Summary Date: 07/28/21 Room / Location: [address] Anesthesia Start: 954 Anesthesia Stop: 1017 [...] July 28, 2021 TIME: 10:27 AM CSN: [id number] Normal [facility] ANES PRE-OPon 07-28-2021 ANES PRE-OP HNO ID: [id number] Author: Brent Balbuena MD Service: Anesthesiology Author [...] ON 07/29/2021] lidocaine 2 % (XYLOCAINE) OTHER Educational Audiologist to OR - tetracaine (PF) 0.5 % [...] July 28, 2021 TIME: 9:26 AM CSN: [id number] [facility] NURSING PROGon 07-28-2021 NURSING PROG HNO ID: [id number] Author: Meryl Huynh RN Service: ? Author [...] Meryl Huynh RN In Department: AMBULATORY SURGERY Normal [facility] OPERATIVE NOon 07-28-2021 OPERATIVE NO HNO ID: [id number] Author: Brianna Bender V, MD Service: Ophthalmology Author Type: Physician Type: Operative Report Filed: 07/28/2021 10:15 AM Note Text: OPERATIVE REPORT DATE OF SERVICE: July 28, 2021 PRIMARY SURGEONS: Brianna Bender MD FOURTH OFFICER: None Procedure(s) (LRB): PHACOEMULSIFICATION CATARACT IMPLANT INTRAOCULAR [...] corneal incision was created temporally with a [place] blade then a 2.4 mm keratome. The anterior chamber was reformed with Viscoat, after which the anterior capsule was opened centrally. Using the Utrata forceps a continuous curvilinear capsulorrhexis of approximately 5.5 mm round was created. Gentle hydrodissection was accomplished using preservative-free lidocaine on a 27-gauge canula. Using the Pancho phacoemulsification unit with the [employer] curved tip, the anterior chamber was entered [...] 10:12 AM - Comanage with Dr Cline; [facility] Brianna BENDER MD [facility] ANES POSTPROC EVALon 021 ANES POSTPROC EVAL HNO ID: [id number] Author: Leyda Astudillo MD Service: Anesthesiology Author Type: Physician Type: Anesthesia Postprocedure Evaluation Filed: 07/14/2021 2:09 PM Note Text: POST ANESTHESIA EVALUATION NOTE : 1950 Procedure Summary Date: 07/14/21 Room / Location: [address] Anesthesia Start: 1121 Anesthesia Stop: 1140 [...] July 14, 2021 TIME: 2:09 PM CSN: [id number] Normal [facility] ANES PRE-OPon 07-14-2021 ANES PRE-OP HNO ID: [id number] Author: Leyda Astudillo MD Service: Anesthesiology Author [...] ON 07/15/2021] lidocaine 2 % (XYLOCAINE) OTHER Educational Audiologist to OR - [COMPLETED] tetracaine (PF) 0.5 [...] July 14, 2021 TIME: 11:04 AM CSN: [id number] [facility] OPERATIVE NOon 07-14-2021 OPERATIVE NO HNO ID: [id number] Author: Brianna Bender V, MD Service: Ophthalmology Author Type: Physician Type: Operative Report Filed: 07/14/2021 11:37 AM Note Text: OPERATIVE REPORT DATE OF SERVICE: July 14, 2021 PRIMARY SURGEON: Brianna Bender M.D. FOURTH OFFICER: None Procedure(s) (LRB): PHACOEMULSIFICATION CATARACT IMPLANT INTRAOCULAR [...] corneal incision was created temporally with a [place] blade then a 2.4 mm keratome. The anterior chamber was reformed with Viscoat, after which the anterior capsule was opened centrally. Using the Utrata forceps a continuous curvilinear capsulorrhexis of approximately 5.5 mm round was created. Gentle hydrodissection was accomplished using preservative-free lidocaine on a 27-gauge cannula. Using the Pancho phacoemulsification unit with the [employer] curved tip, the anterior chamber was entered [...] Implant Name Type Inv. Item Serial No. Manager Integrated Lot No. LRB Model Num No. Used LENS IOL 0D +23.5 ABE UV ABS - [id number] Intraocular Lens LENS IOL 0D +23.5 ABE UV ABS [id number] PAN[employer] Right [id number] was inserted through [...] 11:36 AM - Comanage with Dr Cline; [facility] POD #1 Brianna BENDER MD [facility] HISTORY PHYSICALon HISTORY PHYSICAL HNO ID: [id number] Author: Delphine Peña PA-C Service: ? Author Type: Physician Dynamite Shooter Type: HANDP Filed: 07/08/2021 10:38 AM Note [...] fevers. Neuro: No history of TIA's, stroke, BOX PERSON tumor, impaired sensorium, hemiplegia, paraplegia or quadraplegia. No neurological symptoms or problems. Respiratory: No history of current cough or dyspnea, or pneumonia in the past 6 weeks. No history of respiratory/pulmonary symptoms or problems. Cardiovascular: No history of HTN requiring medication, no history of angina, CHF, PA, cardiac surgery or stents. Denies rest pain, [...] or f (more content not included)... Normal [facility] No Panel Information [facility] Vital Signs Date Time Vital Sign Value Performing Clinician Facility 05-21-2025 08:38-0400 Body height 162.56 cm Erik Ball DO Work Phone: [facility] 05-21-2025 08:38-0400 Body mass index (BMI) [Ratio] 22.5 kg/m2 Erik Ball DO Work Phone: [facility] 05-21-2025 08:38-0400 Body weight 59.59 kg Erik Ball DO Work Phone: [facility] 05-21-2025 08:38-0400 Diastolic blood pressure 80 mm[Hg] Erik Ball DO Work Phone: [facility] 05-21-2025 08:38-0400 Heart rate 48 /min Erik Ball DO Work Phone: [facility] 05-21-2025 08:38-0400 Respiratory rate 12 /min Erik Ball DO Work Phone: [facility] 05-21-2025 08:38-0400 Systolic blood pressure 130 mm[Hg] Erik Ball DO Work Phone: [facility] 09-24-2024 12:06-0400 Blood Pressure Location TRUPTI THOMAS [facility] 09-24-2024 12:06-0400 Diastolic blood pressure 76 mm[Hg] TRUPTI THOMAS [facility] 09-24-2024 12:06-0400 Heart rate 64 /min TRUPTI THOMAS [facility] 09-24-2024 12:06-0400 Systolic blood pressure 176 mm[Hg] TRUPTI THOMAS [facility] 05-17-2024 11:09-0400 Body height 162.56 cm [facility] 05-17-2024 11:09-0400 Body mass index (BMI) [Ratio] 22.8 kg/m2 [facility] 05-17-2024 11:09-0400 Body weight 60.32 kg [facility] 05-17-2024 11:09-0400 Diastolic blood pressure 80 mm[Hg] [facility] 05-17-2024 11:09-0400 Heart rate 61 /min [facility] 05-17-2024 11:09-0400 Respiratory rate 12 /min [facility] 05-17-2024 11:09-0400 Systolic blood pressure 138 mm[Hg] [facility] 11-15-2023 08:30-0500 Body height 162.56 cm Erik Ball Other [facility] [employer] Other 11-15-2023 08:30-0500 Body mass index (BMI) [Ratio] 22.72 kg/m2 Erik Ball Other [facility] [employer] Other 11-15-2023 08:30-0500 Body weight 60.06 kg Erik Ball Other [facility] [employer] Other 11-15-2023 08:30-0500 Diastolic blood pressure 62 mm[Hg] Erik Ball Other [employer] Other 11-15-2023 08:30-0500 Respiratory rate 12 /min Erik Ball Other [employer] Other 11-15-2023 08:30-0500 Systolic blood pressure 164 mm[Hg] Erik Ball Other [employer] Other 09-11-2023 08:33-0400 Blood Pressure Location Mann RIBEIRO [facility] 09-11-2023 08:33-0400 Diastolic blood pressure 84 mm[Hg] Mann RIBEIRO [facility] 09-11-2023 08:33-0400 Heart rate 66 /min Mann RIBEIRO [facility] 09-11-2023 08:33-0400 Respiratory rate 16 /min Mann RIBEIRO [facility] 09-11-2023 08:33-0400 Systolic blood pressure 136 mm[Hg] Mann RIBEIRO [facility] 05-15-2023 09:00-0400 Body height 162.56 cm Erik Ball Other [employer] Other 05-15-2023 09:00-0400 Body mass index (BMI) [Ratio] 22.79 kg/m2 Erik Ball Other [employer] Other 05-15-2023 09:00-0400 Body weight 60.24 kg Eirk Ball Other [employer] Other 05-15-2023 09:00-0400 Diastolic blood pressure 70 mm[Hg] Erik Ball Other [facility] [employer] Other 05-15-2023 09:00-0400 Respiratory rate 12 /min Erik Ball Other [facility] [employer] Other 05-15-2023 09:00-0400 Systolic blood pressure 179 mm[Hg] Erik Ball Other [facility] [employer] Other 09-09-2022 09:12-0400 Blood Pressure Location Mann RIBEIRO [facility] 09-09-2022 09:12-0400 Diastolic blood pressure 87 mm[Hg] Mann RIBEIRO [facility] 09-09-2022 09:12-0400 Heart rate 70 /min Mann RIBEIRO [facility] 09-09-2022 09:12-0400 Respiratory rate 16 /min Mann RIBEIRO [facility] 09-09-2022 09:12-0400 Systolic blood pressure 139 mm[Hg] Mann RIBEIRO [facility] 07-18-2022 14:46-0400 Body height 162.56 cm MD Mann Ribeiro Work Phone: [facility] 07-18-2022 14:46-0400 Body weight 59.42 kg MD Mann Ribeiro Work Phone: [facility] 06-06-2022 09:07-0400 Blood Pressure Location Mann RIBEIRO [facility] 06-06-2022 09:07-0400 Diastolic blood pressure 91 mm[Hg] Mann RIBEIRO [facility] 06-06-2022 09:07-0400 Heart rate 68 /min Mann RIBEIRO [facility] 06-06-2022 09:07-0400 Systolic blood pressure 172 mm[Hg] Mann RIBEIRO [facility] En[facility] Encounter Date Encounter Type Care Provider Facility Start: 09-26-2025 ambulatory aMnn RIBEIRO Facili ty:[facility] Start: 09-25-2025 ambulatory Opal Dean y:[facility] [place] Start: 05-21-2025 End: 05-21-2025 ambulatory Erik Holm DO Work Phone: [facility] Work Phone: Start: 05-21-2025 End: 05-21-2025 Patient encounter procedure Erik Holm DO -[facility] Work Phone: Start: 09-24-2024 End: 09-24-2024 ambulatory TRUPTI THOMAS Facility: [place] Start: 09-24-2024 End: 09-24-2024 Patient encounter procedure TRUPTI THOMAS [facility] Start: 05-17-2024 End: 05-17-2024 ambulatory [facility] Work Phone: Start: 05-17-2024 End: 05-17-2024 Patient encounter procedure [facility] Physician [facility] Work Phone: Start: 01-01-2024 End: 01-01-2024 ambulatory Erik Holm Other [employer] Other Start: 01-01-2024 Telephone encounter Erik Ball [facility] Start: 12-14-2023 End: 12-14-2023 ambulatory Erik Holm Other [employer] Other Start: 12-14-2023 Telephone encounter Erik Holm [facility] Start: 11-16-2023 End: 11-16-2023 ambulatory Erik Holm Other [employer] Other Start: 11-16-2023 Telephone encounter Erik Holm [facility] Start: 11-15-2023 End: 11-15-2023 ambulatory Erik Holm Other [employer] Other Start: 11-15-2023 Office outpatient vi sit 25 minutes Erik Holm [facility] Start: 11-01-2023 End: 11-01-2023 ambulatory Erik Holm Other [employer] Other Start: 11-01-2023 Telephone encounter Erik Holm [facility] Start: 10-26-2023 End: 10-26-2023 ambulatory Erik Holm Other [employer] Other Start: 10-26-2023 Telephone encounter Erik Holm [facility] Start: 09-11-2023 End: 09-11-2023 Patient encounter procedure Mann RIBEIRO [facility] Start: 05-16-2023 End: 05-16-2023 ambulatory Erik Holm Other [employer] Other Start: 05-16-2023 Telephone encounter Erik PORTILLO [facility] Start: 05-15-2023 End: 05-15-2023 ambulatory Erik Holm Other [employer] Other Start: 05-15-2023 Encounter by dee dee mason Erik Holm [facility] Start: 05-15-2023 Patient encounter procedure Erik Holm [facility] Start: 09-15-2022 End: 09-16-[address] ERIK HOLM Facility:[facility] Start: 09-09-2022 End: 09-09-2022 Patient encounter procedure Mann RIBEIRO [facility] Start: 08-25-2022 End: 08-25-[address] MANN RIBEIRO Facility:[facility] Start: 08-24-2022 Encounter for preprocedural cardiovascular examination DR MANN RIBEIRO [facility] Start: 08-24-2022 Encounter for preprocedural laboratory examination DR MANN RIBEIRO [facility] Start: 08-22-2022 End: 08-23-[address] MANN RIBEIRO Facility:[facility] Start: 08-22-2022 End: 08-23-2022 Encounter for preprocedural cardiovascular examination DR MANN RIBEIRO Facility:[facility] Start: 08-05-2022 End: 08-26-2022 Pre-admission assessment Mann RIBEIRO [facility] Start: 07-18-2022 End: 07-18-2022 Patient encounter procedure MD Mann Ribeiro Work Phone: [facility] [place] Start: 06-16-2022 End: 06-16-2022 Patient encounter procedure Brianna Bender MD Work Phone: Ophthalmology Comment on above: PCO (posterior capsu lar opacification), bilateral (Primary Dx); Pseudophakia, both eyes; Glaucoma suspect of both eyes; History of refractive surgery - RK Right Eye and RK/AK Left Eye Start: 06-06-2022 End: 06-06-2022 Patient encounter procedure Mann RIBEIRO [facility] Start: 05-17-2022 End: 05-18-[address] [...] on above: Performed By: #### P SAD ####[place] [id number] Phil Acuña Start: 09-24-2019 Transrectal biopsy o f prostate using ultrasound guidance Mann RIBEIRO Colonoscopy Mann RIBEIRO Plan of Treatment Date Care Activity Detail Author Start: 07-28-2022 Influenza vaccination INFLUENZA (#1) [facility] Start: 02-17-2022 COVID-19 VACCINE (4 - Booster for Pfizer series) COVID-19 VACCINE (4 - Booster for Pfizer series) [facility] Start: 11-27-2021 ADVANCE DIRECTIVE DISCUSSION ADVANCE DIRECTIVE DISCUSSION [facility] Start: 2016 PNEUMOCOCCAL: 65+ (1 - PCV) PNEUMOCOCCAL: 65+ (1 - PCV) [facility] Start: 2001 SHINGRIX VACCINE (1 of 2) SHINGRIX VACCINE (1 of 2) [facility] Start: 1996 COLOGUARD (FIT-DNA) COLOGUARD (FIT-DNA) [facility] Start: 1996 Colonoscopy COLONOSCOPY [facility] Start: 1996 COLORECTAL CANCER SCREENING COLORECTAL CANCER SCREENING [facility] Start: [address] COLONOGRAPHY [facility] Start: 1996 DIABETES SCREEN DIABETES SCREEN [facility] Start: 1996 FECAL OCCULT BLOOD FECAL OCCULT BLOOD [facility] Start: 1996 SIGMOIDOSCOPY SIGMOIDOSCOPY [facility] Start: 1986 LIPID SCREEN LIPID SCREEN [facility] Start: 1970 Urine microalbumin profile DTAP,TDAP,TD (1 - Tdap) [facility] Start: 1969 ANNUAL PCP TEAM CHRONIC DISEASE VISIT ANNUAL PCP TEAM CHRONIC DISEASE VISIT [facility] Start: 1969 BP CONTROLLED (<130/80) BP CONTROLLED (<130/80) [facility] Start: 1969 HEPATITIS C SCREENING HEPATITIS C SCREENING [facility] Start: 1963 Adult depression screening assessment DEPRESSION SCREENING [facility] Start: 1951 ABDOMINAL AORTIC ANEURYSM SCREENING ABDOMINAL AORTIC ANEURYSM SCREENING [facility] metabo lic 1999 panel - Serum or Plasma [facility] Comprehensive metabo lic 1999 panel - Serum or Plasma [facility] Immunizations Immunization Date Immunization Notes Care Provider Fa cility 09-22-2022 influenza virus vaccine, unspecified formulation [facility] 09-22-2022 influenza, high dose seasonal, preservative-free Erik Holm Other [employer] Other 09-13-2022 COVID-19 Pfizer (bivalent) Erik Holm Other [facility] 10-20-2021 COVID-19 Vaccine Pfi zer - Documentation Purposes Only Erik Holm Other [facility] 02-22-2021 COVID-19 Vaccine Pfi zer - Documentation Purposes Only Erik Holm Other [facility] 02-01-2021 COVID-19 Vaccine Pfi zer - Documentation Purposes Only Erik Holm Other [facility] 01-25-2021 SARS-CoV-2 (COVID-19 ) mRNA BNT-162b2 vax Mann RIBEIRO [facility] 04-20-2018 pneumococcal polysaccharide vaccine, 23 valent Erik Holm Other [facility] 04-19-2017 pneumococcal conjuga te vaccine, 13 valent Erik Holm Other [facility] Payers Date Payer Category Payer Medicare [id number] 2016 Medicare MEDICARE MEDICAR E A AND B [id number] 2016-Present [phone] [address] [address] [place] [address] Medicare [id number] 2008 Unknown MMO MMO MEDICARE SUPPLEMENT [id number] 2008-Present [phone] [address] [place] [address] Indemnity [id number] 1959 Medicare [id number] 1959 Unknown [id number] 1951 Unknown [id number] 1951 Unknown [id number] 1951 Unknown [id number] 1951 Unknown [id number] 1951 Unknown [id number] 1951 Unknown [id number] 1951 Unknown [id number] 1951 Unknown [id number] 1951 Unknown [id number] Social History Date Type Detail Facility Start: 05-25-2020 End: 05-21-2025 Tobacco smoking status Ex-smoker (finding) [facility] Sex Assigned At Male [facility] End: 11-27-1987 History of tobacco use Current smoker [facility] End: 11-27-1987 History of tobacco use Cigarette Smoker [facility] Start: 07-08-2021 Tobacco use and exposure User of smokeless tobacco [facility] History of tobacco use Chews Tobacco [facility] Start: 06-16-2022 Alcohol intake Current drinke r of alcohol (finding) [facility] Start: 07-08-2021 History SDOH Alcohol Comment 2 beers a day x5 days. [facility] Start: 07-08-2021 Tobacco Comment does smoke cig ar occasinal. [facility] Start: 1950 Sex Assigned At Not on file C [facility] Start: 1950 Sex Assigned At Male F [facility] Tobacco smoking status Never [facility] Sex Male (finding) [facility] Medical Equipment Procedure Code Equipment Code Equipment Origin al Text Equipment Identifier Dates Lens Iol 0d +23. 5 Abe Uv Abs - [id number] Start: 07-14-2021 Comment on above: Description: -1.75 Lens Iol Acrysof Trc5 25.0 - [id number] Start: 07-28-2021 Comment on above: Description: n/a Functional Status Date Assessment Result Facility 09-24-2024 Functional Status N/A [facility] 09-11-2023 Functional Status N/A [facility] 09-09-2022 Functional Status N/A [facility] 06-06-2022 Functional Status N/A [facility] Clinical Notes 07-08-2021 to 09-24-2024 Note Date & Type Note Facility 09-24-2024 Hospital Discharge instructions Patient Education 09/24/2024 12:35:06 Benign Prostatic Hyperplasia Benign Prostatic Hyperplasia Benign [...] urethra. Follow these instructions at home: Take bdgo-iwt-aeujdix and prescription medicines only as told by [...] provider. Document Revised: 06/01/2022 Document Reviewed: 06/01/2022 [employer] Patient Education 2023 [employer] Shared. Follow Up Care 09/11/2023 09:19:20 With:SUSANNA NOVOA, Mann Wei, URL Address: [address] [place], [place] [id number]- When:1 year [facility] 09-24-2024 Note Patient Education Urology Benign Prostatic Hyperplasia Benign [...] or symptoms? Symptoms of this condition include: ??? Getting up often during the night to urinate. ??? Needing to urinate frequently during the day. ??? Difficulty starting urine flow. ??? Decrease in size and strength of your urine stream. ??? Leaking (dribbling) after urinating. ??? Inability to pass urine. This needs immediate treatment. ??? Inability to completely empty your bladder. ??? Pain when you pass urine. This is more common if there is also an infection. ??? Urinary tract infection (UTI). How is this diagnosed? This condition is diagnosed based on your medical history, a physical exam, and your symptoms. Tests will also be done, such as: ??? A post-void bladder scan. This measures any amount of urine that may remain in your bladder after you finish urinating. ??? A digital rectal exam. In a rectal exam, your health care provider checks your prostate by putting a lubricated, gloved finger into your rectum to feel the back of your prostate gland. This exam detects the size of your gland and any abnormal lumps or growths. ??? An exam of your urine (urinalysis). ??? A prostate specific antigen (PSA) screening. This is a blood test used to screen for prostate cancer. ??? An ultrasound. This test uses sound waves [...] severity of your condition. Treatment may include: ??? Observation and yearly exams. This may be the only treatment needed if your condition and symptoms are mild. ??? Medicines to relieve your symptoms, including: ? Medicines to shrink the prostate. ? Medicines to relax the muscle of the prostate. ??? Surgery in severe cases. Surgery may include: [...] the urethra. Follow these instructions at home: ??? Take xyzf-tko-gendvnj and prescription medicines only as told by your health care provider. ??? Monitor your symptoms for any changes. Contact your health care provider with any changes. ??? Avoid drinking large amounts of liquid before going to bed or out in public. ??? Avoid or reduce how much caffeine or alcohol you drink. ??? Give yourself time when you urinate. ??? Keep all follow-up visits. This is important. Contact a health care provider if: ??? You have unexplained back pain. ??? Your symptoms do not get (more content not included)... [facility] 12-14-2023 Evaluation note Encounter Date Diagnosis Assessment Notes Nov, Primary hypertension (ICD-10 - I10) [employer] Other 12-20-2023 Evaluation note* Encounter Date Diagnosis [...] f/u Urology Oct, Nocturia (ICD-10 - R35.1) [employer] Other 11-30-2023 Evaluation note* Encounter Date Diagnosis Assessment Notes Treatment Notes Treatment Clinical Notes Sep, Stenosis of left carotid artery (ICD-10 - I65.22) [employer] Other 10-16-2023 Hospital Discharge instructions Patient Education [...] urethra. Follow these instructions at home: Take tbjc-dkc-cpwbqzx and prescription medicines only as told by [...] provider. Document Revised: 06/01/2022 Document Reviewed: 06/01/2022 [employer] Patient Education 2022 I Just Shared. Follow Up Care 06/06/2022 09:36:13 With:SUSANNA NOVOA, Mann Wei, URL Address: [facility] [address], [place] [address]- When:Within 1 Year(s) Comments:w/PSA [facility] 06-19-2023 Evaluation note* Encounter Date Diagnosis [...] High risk medication use (ICD-10 - Z79.899) [employer] Other 10-13-2022 Hospital Discharge instructions Patient Education [...] including vitamins, herbs, eye drops, creams, and qdma-mmn-koanaew medicines. Any problems you or family members [...] provider tells you to take them. Taking mapk-myl-lpueraq medicines, vitamins, herbs, and supplements. Eating and [...] 11/13/2006 Document Revised: 03/04/2020 Document Reviewed: 08/14/2019 [employer] Patient Education 2020 I Just Shared. Follow Up Care 08/05/2022 14:41:24 With:SUSANNA NOVOA, Mann Wei, URL Address: [facility] [address] , [facility] [phone] When:Within 1 Year(s) Comments:w/ PSA [facility] 07-21-2022 NoteHNO ID: [id number] Author: Brianna Bender V, MD Service: ? Author Type: Physician Type: Progress Notes Filed: 06/16/2022 2:50 PM Note Text: The documentation for this note was completed by Shannon Reina, KALA acting as a scribe for Brianna BENDER [...] patient was offered a surgery/procedure at a [facility] facility. The surgeon/proceduralist and patient have [...] form. -F/U [address] Cline ([facility]; [facility] POD #1) The documentation recorded by [...] Brianna BENDER MD June 16, 2022 2:49 [facility]07-21-2022 NoteHNO ID: [id number] Author: Radha Mitchell, VENICE Service: ? Author Type: CALLISTHENICS INSTRUCTOR Type: [place] Notes Filed: 06/16/2022 3:09 PM [...] Radha Mitchell, OD June 16, 2022 2:33 [facility]07-21-2022 History of Present illness Narrative* Brianna Bender [...] patient was offered a surgery/procedure at a [facility] facility. The surgeon/proceduralist and patient have [...] form. -F/U [address] Cline ([facility]; [facility] POD #1) The documentation recorded by [...] 16, 2022 2:33 PM [facility] Discharge instructions Patient Education 06/06/2022 [...] have oneof these risk factors: ?Being of -[place] descent. ?Having a family history of prostate [...] you: Are older than age 55. Are -[place]. Have a father, brother, or uncle who [...] 08/24/2018 Document Revised: 10/26/2018 Document Reviewed: 08/24/2018 [employer] Patient Education 2020 I Just Shared. 06/06/2022 09:26:22 Benign Prostatic Hyperplasia Benign Prostatic [...] urethra. Follow these instructions at home: Take fkcm-xpn-lrnhbpg and prescription medicines only as told by [...] 11/13/2006 Document Revised: 10/08/2019 Document Reviewed: 12/18/2017 [employer] Patient Education 2020 I Just Shared. Follow Up Care 06/04/2021 08:51:29 With:SUSANNA NOVOA, Mann Wei, URL Address: [facility] [address], [place] [address]- When: Unknown Comments:Will schedule MRI of prostate w/wof/u in 1 year with PSA [facility] 08-12-2021 NoteHNO ID: [id number] Author: AGGIE Cartagena Service: ? Author Type: Sales Representative [employer] Type: [place] Notes Filed: 07/08/2021 11:46 AM Note Text: CONFIRM LEFT EYE DOMINANT. AIM PLANO LEFT EYE WITH TORIC IOL AIM -1.50 RIGHT EYE WITH IQ IOL. [facility] Pfeiffer[facility]ments Appointment Date:06/09/2023 08:45:00 AM Scheduled Provider:Mann RIBEIRO MD Location:[facility] Appointment Type:URO Office Visit Diagnostic Tests Pending * PSA Total 06/06/22 [facility] evaluation + Plan note Future Appointments Appointment Date:09/09/2022 08:45:00 AM Scheduled Provider:Mann RIBEIRO MD Location:[facility] Appointment Type:URO Office Visit Appointment Date:06/09/2023 08:45:00 AM Scheduled Provider:Mann RIBEIRO MD Location:[facility]ments Appointment Date:09/11/2023 08:45:00 AM Scheduled Provider:Mann [facility]IBEIRO [facility] Office Visit Diagnostic Tests Pending * PSA Total 09/09/22 [facility] evaluation + Plan note Future Appointments Appointment Date:09/16/2024 08:45:00 AM Scheduled Provider:Mann RIBEIRO MD Location:[facility] Appointment Type:URO Office Visit Diagnostic Tests Pending * PSA Total 09/11/23 [facility] evaluation + Plan note Future Appointments Appointment Date:09/26/2025 08:00:00 AM Scheduled Provider:Mann RIBEIRO MD Location:[facility] Appointment Type:URO Office Visit Diagnostic Tests Pending * PSA Total 09/24/24 [facility] evaluation note* Diagnosis PCO (posterior capsular opacification), bilateral- Primary After-cataract, unspecified Pseudophakia, both eyes Lens replaced by other means Glaucoma suspect of both eyes Preglaucoma, unspecified History of refractive surgery - RK Right Eye and RK/AK Left Eye Other states following surgery of eye and adnexa [facility] Work Phone: Evaluation noteNo InformationNort Sp[employer] Other Evaluation note* Diagnosis Onset Date Resolution Status Carotid stenosis acute Hypercholesterolemia acute Hypertension acute IFG (impaired fasting glucose) acute Medicare annual wellness visit, subsequent noneactive [facility] Work Phone: Evaluation note* Diagnosis Onset Date Resolution Status Admit Date Carotid stenosis acute April 8:28am Elevated PSA acute May 21, 025 8:28am Hypercholesterolemia acute May 21, 2025 8:28am Hypertension acute May 21, 2 025 8:28am IFG (impaired fasting glucose) acute May 21, 2025 8:28am Screening PSA (prostate spec ific antigen) acute May 21, 2025 8:28am Medicare annual wellness vis it, subsequent noneactive May 21, 2025 8:28am [facility] Work Phone: History general Narrative - Reported* Type Description Date Medical History Glaucoma Medical History Prostate nodule Medical History Elevated PSA Medical History Bilateral carotid bruits Medical History Benign prostatic hyp erplasia with lower urinary tract symptoms Medical History Hyperlipidemia type II Medical History Hypertension Medical History Impaired fasting blood sugar Medical History Left carotid stenosis Surgical History Transrectal ultrasound (TRUS) w [facility] biopsy 08/25/2022 Surgical History Transrectal ultrasound (TRUS) w [facility] biopsy 09/25/2019 Surgical History colonoscopy 2010 Hospitalization History see surgical history [employer] Other Hospital course Narrative No data available for this section [facility] Hospital Discharge instructions No data available for this section [facility] No data available for this section [facility] reason for referral (narrative)No reason for referral [facility] Work Phone: Medications Administered Section Active Administered Medications - up to 3 most recent administrations Medication Order MAR Action Action Date Dose Rate Site fluorescein-benoxinate 0.25-0.4 % 1 Drop (FLURESS) 1 Drop, BOTH EYES, DIRECTED, Starting on Mon06/16/22 at 1400, Until Mon06/17/22 at 0159, Administer for applanation tonometry. In the event of a Fluress shortage, administer Parlin-Fluor 1 drop into both eyes as directed [...] 2:00 PM EDT 1 Drop Advance Directives No Advanced Directives Records FoundDocuments on File Type Date Recorded Patient Cook Larder Expl anation Advance Directive(s) 07/28/2021 8:45 AM Advance Directive(s) 07/14/2021 9:48 AM Advance Directive(s) 07/08/2021 1:26 PM Advance Directive Response Recorded Date/ Time Advance Directives No July 07, 2022 9:23am Summary Purpose Family History No Family History Records Found Relationship Condition Age at Onset Recorded Date/T darlene father Hypertension Unknown Chief Complaint and Reason for Visit Chief Complaint Elevated PSA Chief Complaint Medicare Wellness Reason for Visit Carotid stenosis Hypercholesterolemia Hypertension IFG (impaired fasting glucose) Medicare annual wellness visit, subsequent Chief Complaint Admit Date Wellness May 21, 2025 8:28 am Reason for Visit Admit Date Carotid stenosis May 21, 2025 8:28 am Elevated PSA May 21, 2025 8:28 am Hypercholesterolemia May 21, 2025 8:2 8am Hypertension May 21, 2025 8:28 am IFG (impaired fasting glucose) April 8:28am Screening PSA (prostate specific antigen ) May 21, 2025 8:28am Medicare annual wellness visit, subseque nt May 21, 2025 8:28am Additional Source Comments Care Team (unrecognized sect ion and content) Sand Mixer Relationship Specialty Start Date End Date Erik Holm DO [address] [place] [address] PCP - General Internal Medicine 07/08/21 Team [...] May 17, 2024 End: May 17, 2024 Team Status: Inactive Member Role Status Dates Erik Holm DO Primary Care Provider Active Start: May 21, 2025 End: May 21, 2025 Erik Holm DO Attending Provider Active Sta rt: May 21, 2025 End: May 21, 2025 Source Comments (unrecognize d section and content) In the event this informatio n is protected by the Federal Confidentiality of Alcohol and Drug Abuse Patient Records regulations: The Federal rules restrict any use of the information to criminally investigate or prosecute any alcohol or drug abuse patient.[facility] Reason for Visit (unrecogniz ed section and content) Reason Comments Posterior Capsule Opacification Evaluati on Both Eyes Pseudophakia IOL Right Eye AIM -1 .50 (08/14/2021) IOL Left Eye (07/28/2021) (unrecognized sect ion and content) No Status Records FoundNo Status Records FoundNo Status Records FoundNo Status Records Found INFORMATION SOURCE (unrecogn ized section and content) DATE CREATED AUTHOR 06/18/2022 [facility] DATE CREATED AUTHOR AUTHOR'S ORGANIZ ATION 07/24/2022 [facility] DATE CREATED AUTHOR AUTHOR'S ORGANIZ ATION 11/17/2022 [facility] DATE CREATED AUTHOR AUTHOR'S ORGANIZ ATION 08/10/2025 [facility] Goals (unrecognized section and content) Goals may [...] BE BASED ON THE PRIMARY CLINICAL RECORDS. [employer] [facility]. provides no warranty or guarantee of the accuracy or completeness of information in this document.
[2025-09-12 09:43] LABS: Prostate Specific Antigen Dx 4.74 ng/mL (<=4.00)
== END 2025-09-12 07:52 | disposition home or self-care (01) ==
LOC: LAB 07:51
PROVIDERS: PCP Internal Medicine; Visit Provider Physician Assistant
DX: R97.20 Elevated prostate specific antigen [PSA] (principal)
CPT/HCPCS: 36415; 84153